=== PATIENT | male | born 1945 | race Two or more races ===

== ENCOUNTER → 2024-04-07 | Outpatient (CLI) | payer MEDICARE, MEDICAID, SELFPAY ==
[2024-04-07 08:27] LABS: Collection Type, Urine Clean Catch; RBC,Urine 0 /hpf (0-3)
[2024-04-07 09:21] LABS: Basophils # (Auto) 0.1 Thou/mm3 (0.0-0.2); Basophils % (Auto) 1 % (0-2.5); Eosinophils % (Auto) 0 % (0-10); Hematocrit 30.8 % (41.0-53.0); Hemoglobin 10.6 g/dL (13.5-16.0); Immature Granulocytes % (Auto) 3 % (0-0); Immature Granulocytes Auto 0.22 Thou/mm3 (0.00-0.00); Lymphocytes # (Auto) 2.3 Thou/mm3 (1.0-4.8); Lymphocytes % (Auto) 27 % (10-50); Mean Corpuscular HGB Conc 34.4 g/dl (31.0-37.0); Mean Corpuscular Hemoglobin 33.3 pg (25.0-35.0); Mean Corpuscular Volume 97 fL (80-100); Monocytes # (Auto) 0.7 Thou/mm3 (0.0-0.8); Monocytes % (Auto) 8 % (0-12); Neutrophils % (Auto) 61 % (37-80); Nucleated Red Blood Cell % 0 /100 WBC (0); Platelet Count 181 Thou/mm3 (140-440); RDW Standard Deviation 45.3 fL (35.1-43.9); Red Blood Count 3.18 Miln/mm3 (4.50-5.90); White Blood Count 8.2 Thou/mm3 (3.8-10.6)
[2024-04-07 09:29] LABS: Prostate Specific Antigen 24.73 ng/mL (0-4.00)
[2024-04-07 09:32] LABS: Alanine Aminotransferase 15 U/L (10-49); Albumin, Serum 3.8 gm/dL (3.4-4.8); Albumin/Globulin Ratio 1.6 (1.2-2.2); Alkaline Phosphatase 134 U/L (46-116); Anion Gap 8 (7-16); Aspartate Amino Transferase 16 U/L (0-34); BUN/Creatinine Ratio 7 Ratio (12-20); Bilirubin,Total 0.3 mg/dL (0.3-1.2); Blood Urea Nitrogen < 5 mg/dL (9-23); Calcium 9.2 mg/dL (8.3-10.6); Calcium (Corrected) 9.4 mg/dL (8.5-10.1); Carbon Dioxide 25.6 mMol/L (20.0-31.0); Cardiac Risk Estimate 3.1 RATIO (4.0-6.7); Chloride 108 mMol/L (98-107); Cholesterol 104 mg/dL (132-200); Creatinine (Component) 0.7 mg/dL (0.6-1.3); Globulin 2.4 gm/dL (2.3-3.5); Glucose 94 mg/dL (74-106); HDL Cholesterol 34 mg/dL (40-60); LDL Cholesterol,Calculated 50 mg/dL (0-130); Osmolality,Calculated 280 (275-295); Potassium 3.9 mMol/L (3.4-5.1); Sodium 142 mMol/L (136-145); Thyroid Stimulating Hormone 0.74 uIU/mL (0.55-4.78); Total Protein 6.2 gm/dL (5.7-8.2); Triglycerides 102 mg/dL (30-150); eGFR > 60 See Note
[2024-04-07 09:53] LABS: Creatinine MALB Rnd Ur 220 mg/dL (30-125); Microalbumin Creat Ratio 9 mg/gCrea (<30); Microalbumin, Random Urine 19 mg/L (0-300)
[2024-04-07 10:09] LABS: Bilirubin,Urine Negative (Negative); Blood,Urine Negative (Negative); Clarity,Urine Clear (Clear/Hazy); Color,Urine Yellow (Lt Yel-Yel); Culture Indicated,Urine Not Indicated; Glucose, Urine Negative (Negative); Ketones,Urine Negative (Negative); Leukocyte Esterase,Urine Negative (Negative); Nitrite,Urine Negative (Negative); Protein,Urine Trace (Neg - Trace); Specific Gravity,Urine 1.016 (1.001-1.035); Squamous Epithelial Cell,Urine 3 /hpf (0-5); Urobilinogen,Urine Negative mg/dL (0.0-1.0); WBC,Urine 2 /hpf (0-5)
== END | disposition home or self-care (01) ==
PROVIDERS: PCP Family Medicine; Referring Provider Family Medicine; Visit Provider Family Medicine
DX: Z00.00 Encounter for general adult medical examination without abnormal findings (principal); I10 Essential (primary) hypertension; C61 Malignant neoplasm of prostate; Z13.0 Encounter for screening for diseases of the blood and blood-forming organs and certain disorders involving the immune mechanism; Z13.29 Encounter for screening for other suspected endocrine disorder; Z13.21 Encounter for screening for nutritional disorder; Z13.220 Encounter for screening for lipoid disorders; Z13.1 Encounter for screening for diabetes mellitus
CPT/HCPCS: 36415; 80053; 80061; 81001; 82043; 82306; 82570; 84153; 84443; 85025

== ENCOUNTER → 2024-04-09 | Outpatient (CLI) | payer MEDICARE, MEDICAID, SELFPAY ==
[2024-04-14 06:50] LABS: Fecal Globin Result NOT DETECTED (NOT DETECTED)
== END | disposition home or self-care (01) ==
LOC: SLDO 15:50
PROVIDERS: PCP Family Medicine; Referring Provider Family Medicine; Visit Provider Family Medicine
DX: Z12.11 Encounter for screening for malignant neoplasm of colon (principal)
CPT/HCPCS: 82274; G0328

== ENCOUNTER 2024-06-06 19:36 | Inpatient (IN) | payer MEDICARE, MEDICAID, SELFPAY ==
[2024-06-06] VITALS (7 sets, daily range): BP systolic 82–108; BP diastolic 52–55; PULSE 99–124; RESP 19–22; TEMP 37.1–39.4; O2SAT 95–100; BMI 28.7
--- NOTE | 2024-06-06 19:41 | EKG_ITS ---
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
--- NOTE | 2024-06-06 20:47 | XR_ITS ---
Examination: AP chest single view TECHNIQUE: AP portable upright chest single view Exam date and time: June 06, 2024 1958 hours INDICATIONS: Weakness today. FINDINGS: Normal heart size. Mild vascular congestion. Right internal jugular Port-A-Cath tip satisfactorily positioned No pneumonia IMPRESSION: Mild vascular congestion
--- NOTE | 2024-06-06 20:48 | XR_ITS ---
Examination: Hand, left 3 views Technique: Hand AP, oblique, lateral 3 views Date and time of exam: June 06, 2024 1957 hours INDICATIONS: Injury with pain today, hand pain FINDINGS: Old fracture distal radial metaphysis Prominent osteopenia Minute opaque foreign body in the soft tissue adjacent to the proximal interphalangeal joint third digit Small radiolucency on the lateral view overlying the proximal phalanx third digit No dislocation IMPRESSION: Suspicious for nondisplaced fracture proximal phalanx third digit
--- NOTE | 2024-06-06 20:49 | PD.EDRME ---
Rapid Medical Screening Exam [facility] Arrival date/time: 06/06/24 19:36 78M with history of prostate cancer presents to ED with several days of worsening weakness, non-bloody diarrhea, and jaundice after patient had his L hand injured while taking care of his goats. He scratched himself on the fence. Patient had chemo last and this is not his normal response. Patient has not had a tetanus shot in the past 5 years. Chief Complaint: Weakness Vital signs: Vital Signs Temperature 98.8 F 06/06/24 20:34 Pulse Rate 124 H 06/06/24 20:34 Respiratory Rate 20 06/06/24 20:34 Blood Pressure 108/55 L 06/06/24 20:34 Pulse Oximetry (%) 95 06/06/24 20:34 Oxygen Delivery Method Room Air 06/06/24 20:34
[2024-06-06] MEDS: ACETAMINOPHEN 500 MG TABLET 1000 MG PO (21:05)
[2024-06-06] MEDS: DIPHTH,PERTUSS(ACELL),TET VAC 0.5 ML SYR- ADULT IMi (21:07)
[2024-06-06] MEDS: VANCOMYCIN/NS 1 GM IVPB 200 ML IV (21:16)
[2024-06-06] MEDS: SODIUM CHLORIDE 0.9% 1000 ML 1,000 ML 999 ML IV ×2 (21:16→22:49)
--- NOTE | 2024-06-06 21:28 | PD.EDUPEX ---
Upper Extremity Injury RME/HPI General Chief Complaint: Weakness Stated Complaint: CONFUSED, WEAKNESS, LEFT HAND INJURY Time Seen by Provider: 06/06/24 21:20 Arrival date/time: 06/06/24 19:36 RME / HPI RME / HPI narrative: 78-year-old male patient with significant history of stage IV prostate cancer, currently on chemotherapy, last chemotherapy 8 days ago, was brought in by family for evaluation regarding worsening generalized body weakness, nonbloody diarrhea, fever, and redness to the left hand dorsal aspect. Patient sustained punctured wound with a shala wire 3 days ago to the dorsal aspect of the left hand, since then the hand is getting red and swollen. Patient is denying any pain. Able to bend and extend the fingers without any limitation. Patient was noted to be febrile and tachycardic, sepsis alert was initiated right away. Related Data Previous Rx's ?Medication ?Instructions ?Recorded acetaminophen 650 mg 650 mg PO Q8H PRN fever or pain 01/09/23 tablet,extended release (Tylenol 8 #30 tabs Hour) ibuprofen 600 mg tablet 600 mg PO Q8H PRN fever or pain 01/09/23 #30 tabs Allergies Allergy/AdvReac Type Severity Reaction Status Date / Time No Known Allergies Allergy Verified 06/06/24 19:39 Review of Systems Review of Systems Narrative Review of Systems: Review of system reviewed and within normal limits except mentioned in HPI ED Exam Narrative Physical exam: VITAL SIGNS: Reviewed. GENERAL APPEARANCE: Alert and interactive, follows commands, no acute distress, HEAD AND FACE: Non-traumatic. ENT: PERRL, pink conjunctivitis, eyelid no trauma, Mucous membrane moist. NECK: Supple, nontender, no nuchal rigidity. CHEST: No tenderness, no crepitus, no paradoxical movement, no retractions. LUNGS: Clear, well ventilated, symmetric, no rales, no wheezing, no ronchi, no stridor, good breath sounds bilaterally. HEART: Regular rate, regular rhythm, no murmur, no gallops. ABDOMEN: Soft, positive bowel sounds, nondistended, no guarding, nontender, no rebound, no masses, RECTAL: Deferred. GENITAL: Deferred. NEUROLOGICAL: Gross motor function intact sensory function intact, Appropriate for age. MUSCULOSKELETAL: low back nontender, full range of motion. EXTREMITIES: Redness swelling dorsal aspect of the hand, with punctate wound, nontender, full range of motion of the fingers SKIN: Color pink, dry, no rash, no lacerations, no abrasions, no contusions. LYMPHATICS: Deferred. Course Quality Measures none Orders Category Date Time Status Blood glucose [Bedside Blood Glucose] NOW Care 06/06/24 19:41 Active COVID-19 Screening Questionnaire NOW Care 06/06/24 23:02 Active Decision to Admit X1 Care 06/06/24 23:02 Active EKG (ED ONLY) *Do not use* NOW Care 06/06/24 19:41 Completed Insert IV NOW Care 06/06/24 20:51 Active EKG (ED Only) Stat Exams 06/06/24 19:41 Ordered XR chest 1V portable Stat Exams 06/06/24 20:47 Completed XR hand comp LT min 3V Stat Exams 06/06/24 20:48 Completed B-Type Natriuretic Peptide Stat Lab 06/06/24 21:14 Completed Blood Culture (Lab) Stat Lab 06/06/24 21:14 Received CBC Stat Lab 06/06/24 21:14 Completed Comprehensive Metabolic Panel Stat Lab 06/06/24 21:14 Completed Lactate (Lactic Acid) Stat Lab 06/06/24 21:14 Results Magnesium Stat Lab 06/06/24 21:14 Completed Partial Thromboplastin Time Stat Lab 06/06/24 21:14 Completed Path Review Blood Smear Stat Lab 06/06/24 21:14 Completed Procalcitonin Stat Lab 06/06/24 21:14 Completed Prothrombin Time with INR Stat Lab 06/06/24 21:14 Completed Troponin I Stat Lab 06/06/24 21:14 Completed Urinalysis Stat Lab 06/06/24 20:47 Ordered Acetaminophen Tab [Tylenol ES Tab] Med 06/06/24 20:56 Discontinued 1,000 mg PO X1 ONE Magnesium Sulfate 2 GM Ivpb [Magnesium Sulfate Ivpb] Med 06/06/24 22:16 Active 2 gm in 50 ml IV X1 Piper/Tazo 3.375 gm Premix [Zosyn] Med 06/06/24 21:27 Discontinued 3.375 gm in 50 ml IV X1 Sodium Chloride 0.9% 1000 ml [Ns] 1,000 ml Med 06/06/24 20:47 Discontinued IV 999 mls/hr Sodium Chloride 0.9% 1000 ml [Ns] 1,000 ml Med 06/06/24 22:37 Active IV 999 mls/hr TET,DIP/PERT AC (Adult)-Tdap [Boostrix Adult (Tdap) Med 06/06/24 20:49 Discontinued Vacc] 0.5 ml IMI .ONCE ONE Vancomycin/Ns 1 gm Ivpb 200 ml Med 06/06/24 21:00 Discontinued IV X1 Vital Signs Vital signs: Vital Signs Temperature 98.8 F 06/06/24 20:34 Pulse Rate 124 H 06/06/24 20:34 Respiratory Rate 20 06/06/24 20:34 Blood Pressure 108/55 L 06/06/24 20:34 Pulse Oximetry (%) 95 06/06/24 20:34 Oxygen Delivery Method Room Air 06/06/24 20:34 Extremity Injury [facility] Narrative [facility] Narrative:: 74-year-old female patient with significant history of diabetes mellitus patient came in for evaluation regarding low hemoglobin. Patient had blood drawn done today and was noted to have a hemoglobin of 6.7. CT scan also was done outpatient by his PCP, and according to them there is a concerning finding. Currently patient is denying any abdominal pain denies any blood in the stool or vomiting blood. No other complaints noted. EKG showed sinus tachycardia, ventricular rate of 1 1 5 bpm, MI interval 172 MS, no ST segment elevation depression noted. Laboratory workup significant for leukopenia of 0.5 reverse isolation was initiated right away urinalysis no UTI creatinine 1.4 lactic acid 2.9 Pro-Lito 18.2 x-ray of the hand showed possible/suspected for proximal phalanx fracture third digit chest x-ray came back unremarkable. Patient received IV fluids, IV Zosyn and IV ceftriaxone, patient's blood pressure was noted to be on the low 90s. Patient data External records reviewed:: None Clinical information provided by:: patient Social determinants that could affect healthcare access:: none Patient has the following chronic illnesses:: Hypertension, prostate cancer, stage IV How is presenting disease/condition affected by chronic disease/condition?: exacerbated by Evaluation data The following diagnostics were reviewed and interpreted by me:: lab results, radiology exam(s) and EKG tracing(s) Lab and/or radiology exams considered but not ordered:: None Interpretation Summary: See results in MDM Medications / Prescriptions Medications or Prescriptions considered but not ordered:: None Medication administrations:: Medication Administration History Magnesium Sulfate (Magnesium Sulfate Ivpb) 2 gm in 50 mls @ 25 mls/hr IV X1 ONE Stop: 06/07/24 00:15 Last Admin: 06/06/24 22:33 Dose: 25 mls/hr Documented By: EE Sodium Chloride (Ns) 1,000 mls @ 999 mls/hr IV .Q1H1M ONE Stop: 06/06/24 23:37 Last Admin: 06/06/24 22:49 Dose: 999 mls/hr Documented By: CB Discontinued Medications Acetaminophen (Acetaminophen 500 Mg Tablet) 1,000 mg PO X1 ONE Stop: 06/06/24 20:57 Last Admin: 06/06/24 21:05 Dose: 1,000 mg Documented By: CVL Diphtheria/Tetanus/Acell Pertussis (Diphth,Pertuss(Acell),Tet Vac 0.5 Ml Syr- Adult) 0.5 ml IMi .ONCE ONE Stop: 06/06/24 20:50 Last Admin: 06/06/24 21:07 Dose: 0.5 ml Documented By: CVL Sodium Chloride (Ns) 1,000 mls @ 999 mls/hr IV .Q1H1M ONE Stop: 06/06/24 21:47 Last Infusion: 06/06/24 22:50 Dose: Infused Documented By: Admin: 06/06/24 21:16 Dose: 999 mls/hr Documented By: CVL Vancomycin/Sodium Chloride (Vancomycin/Ns 1 Gm Ivpb) 200 mls @ 120 mls/hr IV X1 ONE Stop: 06/06/24 22:39 Last Infusion: 06/06/24 23:10 Dose: Infused Documented By: Admin: 06/06/24 21:16 Dose: 120 mls/hr Documented By: CVL Piperacillin/Tazobactam/Dextrose (Zosyn) 3.375 gm in 50 mls @ 100 mls/hr IV X1 ONE Stop: 06/06/24 21:56 Last Infusion: 06/06/24 22:49 Dose: Infused Documented By: Admin: 06/06/24 21:55 Dose: 100 mls/hr Documented By: CB IV Zosyn IV vancomycin IV fluids for hydration, Boostrix and Tylenol Consultations Consultation(s) initiated? (list below): No Diagnosis Upper Extremity Injury Differential Diagnosis: other (Neutropenic fever, hand cellulitis, pneumonia, history of prostate cancer stage IV) Most likely diagnosis given after review of the tests above:: Neutropenic fever, hand cellulitis, prostate cancer stage IV Admission Indicated Admission indicated?: indicated Admission Request Was there a request for admission?: Yes Admission Attestation Admission request attestation: Discussed case with [Dr. Taylor] from Hospitalist service regarding admission. Discussed patients ED course, exam findings, labs, and radiology results. The Hospitalist [agrees] to accept the patient for admission. Disposition Plan Disposition Plan: Admit Discharge Plan Plan Patient Disposition: Admit Acute Care w/in Hospital Prescriptions/Referrals Prescriptions/Med Rec: No Action acetaminophen [Tylenol 8 Hour] 650 mg tablet extended release 650 mg PO Q8H PRN (Reason: fever or pain) Qty: 30 0RF ibuprofen 600 mg tablet 600 mg PO Q8H PRN (Reason: fever or pain) Qty: 30 0RF Problem List Clinical Impression: Neutropenic fever, Cellulitis of hand, Prostate cancer Patient/Caregiver Discharge Instructions Print Language: Dominican Stand Alone Forms: [facility] Award Info., Patient Portal Info Letter
[2024-06-06 21:38] LABS: Lactate (Lactic Acid) 2.9 mMol/L (0.4-2.0)
[2024-06-06 21:53] LABS: Basophils % (Auto) 2 % (0-2.5); Eosinophils % (Auto) 0 % (0-10); Hematocrit 28.8 % (41.0-53.0); Hemoglobin 10.2 g/dL (13.5-16.0); Immature Granulocytes % (Auto) 0 % (0-0); Lymphocytes # (Auto) 0.4 Thou/mm3 (1.0-4.8); Lymphocytes % (Auto) 83 % (10-50); Mean Corpuscular HGB Conc 35.4 g/dl (31.0-37.0); Mean Corpuscular Hemoglobin 34.2 pg (25.0-35.0); Mean Corpuscular Volume 97 fL (80-100); Monocytes % (Auto) 7 % (0-12); Neutrophils % (Auto) 9 % (37-80); Nucleated Red Blood Cell % 0 /100 WBC (0); Red Blood Count 2.98 Miln/mm3 (4.50-5.90)
[2024-06-06] MEDS: PIPER/TAZO 3.375 GM PREMIX 3.375 GM/50 ML BAG IV (21:55)
[2024-06-06 22:00] LABS: INR 1.3 (0.9-1.3); Partial Thromboplastin Time 35.2 Seconds (22.0-36.0); Prothrombin Time 13.7 Seconds (9.0-12.2)
[2024-06-06 22:11] LABS: Alanine Aminotransferase 44 U/L (10-49); Albumin/Globulin Ratio 1.6 (1.2-2.2); Alkaline Phosphatase 83 U/L (46-116); Anion Gap 12 (7-16); Aspartate Amino Transferase 28 U/L (0-34); BUN/Creatinine Ratio 13 Ratio (12-20); Bilirubin,Total 0.8 mg/dL (0.3-1.2); Blood Urea Nitrogen 18 mg/dL (9-23); Carbon Dioxide 19.1 mMol/L (20.0-31.0); Chloride 99 mMol/L (98-107); Creatinine (Component) 1.4 mg/dL (0.6-1.3); Estimated Creatinine Clearance 47.8 mL/min (>60); Globulin 2.5 gm/dL (2.3-3.5); Glucose 92 mg/dL (74-106); Magnesium 1.4 mg/dL (1.6-2.6); Osmolality,Calculated 262 (275-295); Potassium 3.7 mMol/L (3.4-5.1); Procalcitonin 18.24 ng/ml (0.0-0.49); Sodium 130 mMol/L (136-145); Total Protein 6.5 gm/dL (5.7-8.2); eGFR 52 See Note
[2024-06-06 22:27] LABS: Platelet Count 43 Thou/mm3 (140-440)
[2024-06-06 22:29] LABS: B-Type Natriuretic Peptide 190 pg/mL (0-100)
[2024-06-06 22:30] LABS: White Blood Count 0.5 Thou/mm3 (3.8-10.6)
[2024-06-06 22:31] LABS: Slide Review Platelets confirmed
[2024-06-06] MEDS: Magnesium Sulfate 2 GM Ivpb 2 GM/50 ML BAG IV (22:33)
--- NOTE | 2024-06-06 22:35 | PC.NURSE ---
Notified Rea LARSON that patients blood pressure is 82/53. Provider ordered another liter of normal saline bolus.
[2024-06-06 22:45] LABS: Path Review Blood Smear Sent to Pathologist
[2024-06-07] VITALS (30 sets, daily range): BP systolic 96–139; BP diastolic 57–101; PULSE 88–114; RESP 10–28; TEMP 36.8–39.2; O2SAT 93–99; BMI 32.3
--- NOTE | 2024-06-07 | XR_ITS ---
Examination: MRI left hand, without contrast Date and time of exam: Ruba Pickard, [address] 100 hours INDICATIONS: Diagnosis malignant neoplasm prostate stage IV, chemotherapy finished a days ago with redness swelling and pain involving the left hand Technique: Multiple axial sagittal and coronal images of the left hand have been obtained with the Siemens high-resolution 1.5 Kaylee MRI scanner. Images obtained include T2-weighted fat-suppressed sagittal sections, TR 3500, TE 46, T2 weighted coronal fat suppressed images, TR 3050, TE 84, T2-weighted transverse fat suppressed images, TR 3260, TE 63, proton density transverse images, TR 4720 TE 46, and T1 weighted coronal images, TR 560, TE 13. Findings: Diffuse cellulitis both dorsal and palmar to the hand more severe dorsum of the hand at the level of the metacarpophalangeal joints No soft tissue abscess No cortical bone destruction No occult fracture No annular nadia tears Please see the wrist report IMPRESSION: Diffuse cellulitis, with severe edema dorsum and palmar aspect of the hand and wrist, most severe dorsum of the hand at the level of the metacarpophalangeal joints Negative for osteomyelitis Negative for soft tissue abscess
--- NOTE | 2024-06-07 | XR_ITS ---
Examination: MRI wrist without contrast TECHNIQUE: Multiple MR axial images of the wrist including T2-weighted T1-weighted axial images coronal T2-weighted images Exam date and time: June 07 2024 at 1600 hours INDICATIONS: Diagnosis stage IV malignant neoplasm of the prostate, undergoing chemotherapy, fever redness to the hand this week FINDINGS: Adequate marrow signal distal radius distal ulna and carpal bones Triangular fibrocartilage appears intact There is moderate narrowing of the radiocarpal intercarpal and carpometacarpal joints Small effusion at the first carpometacarpal joint Extensive edema in the soft tissues surrounding the wrist but no soft tissue abscess No cortical bone destruction or findings of osteomyelitis Flexor tendons intact with normal-appearing median nerve Diffuse tendinitis of the extensor tendons IMPRESSION: Diffuse wrist cellulitis No soft tissue abscess Negative for osteomyelitis
[2024-06-07 00:35] LABS: Reflex Lactate? Y
[2024-06-07 01:06] LABS: Lactic Acid, 3 HR 1.4 mMol/L (0.4-2.0)
[2024-06-07] MEDS: ACETAMINOPHEN 325 MG TABLET 650 MG PO ×2 (01:20→10:19)
[2024-06-07] MEDS: SODIUM CHLORIDE 0.9% 1000 ML 1,000 ML 999 ML IV ×2 (01:20→03:44)
[2024-06-07] MEDS: Magnesium Sulfate 2 GM Ivpb 2 GM/50 ML BAG IV (01:20)
[2024-06-07 01:39] LABS: Collection Type, Urine Clean Catch
[2024-06-07] MEDS: HYDROcodone/APAP 5/325 TABLET 1 TAB PO ×2 (01:47→09:57)
[2024-06-07] MEDS: CALCIUM CARBONATE 600 MG TABLET PO ×2 (01:48→11:03)
[2024-06-07 01:50] LABS: Bilirubin,Urine Negative (Negative); Blood,Urine 1+ (Negative); Clarity,Urine Turbid (Clear/Hazy); Color,Urine Yellow (Lt Yel-Yel); Glucose, Urine Negative (Negative); Ketones,Urine Negative (Negative); Leukocyte Esterase,Urine Negative (Negative); Nitrite,Urine Negative (Negative); PH,Urine 5.5 (5.0-7.0); Protein,Urine 1+ (Neg - Trace); RBC,Urine 5 /hpf (0-3); Squamous Epithelial Cell,Urine 1 /hpf (0-5); Urobilinogen,Urine Negative mg/dL (0.0-1.0); WBC,Urine 7 /hpf (0-5)
--- NOTE | 2024-06-07 02:38 | PD.RESHP ---
Documentation for date of: 06/07/24 [facility] History of Present Illness History of present illness: The Patient is a 78-year-old male with significant past medical history of hypertension, stage IV prostate cancer, currently on chemotherapy with last chemotherapy 8 days ago was brought in by family for fever, redness to the left hand and generalized body weakness. The patient's daughter at bedside. Patient was apparently doing well, but 3 days back when he was on his backyard, punctured his left hand with shala wire at the junction of dorsal and palmar aspect over medial side. The patient also developed fever. He denied any lightheadedness, chest pain or SOB, nausea or vomiting, any changes in bowel or bladder habit, or any leg swelling. In the ED, his vitals were significant for blood pressure 108/55, pulse 124, and temperature 98.8. Labs were significant for white count 0.5, hemoglobin 10.2, platelet 43, PT 13.7, sodium 130, bicarb 19.1, creatinine 1.4, EGFR 52, osmolality 262, lactic acid 2.9 that trended down to 1.4, calcium 8.0, magnesium 1.4, Pro-Lito 18.24. UA revealed turbid urine, protein 1+, blood 1+, RBC 5, WBC 7. CXR revealed mild vascular congestions, Left hand x-ray revealed suspicion for nondisplaced fracture proximal phalanx third digit. PMH: As mentioned above Surgical history: Unremarkable Social history: Denies smoking, occasional alcohol use, denies drug abuse Allergies: No known allergies Medications: To be reconciled The patient received DPT 0.5 mL IM x 1, received Zosyn 3.375 g x 1, total 4 L of IV NS bolus, vancomycin, and later started on cefepime and Flagyl. The patient was admitted to telemetry unit for further management of neutropenic fever. Review of Systems Review of Systems Systems Reviewed: All systems reviewed, normal except as documented Exam Vital Signs Temp Pulse Resp BP Pulse Ox O2 Del Method 101.9 F H 113 H 22 H 124/66 95 Room Air 06/07/24 01:20 06/07/24 01:25 06/07/24 01:25 06/07/24 01:25 06/07/24 01:25 06/07/24 01:25 Narrative Exam General: No acute distress, Alert and Oriented x 3 HEENT: Moist mucous membranes, oropharynx clear Neck: Supple, No masses, No JVD CVS: S1S2 Regular rate and rhythm, No murmurs, rubs or gallops Lungs: Clear to auscultation with no accessory use, no wheeze no rhonchi Abd: Soft, NT/ND, +BS, no organomegaly Ext: Left hand with puncture wound over medial aspect in the junction of palmar and dorsal aspect Psych: Appropriate mood and affect Results: Labs 06/06/24 21:14 06/06/24 21:14 Labs: Short CBC 06/06/24 Range/Units 21:14 WBC 0.5 L* (3.8-10.6) Thou/mm3 Hgb 10.2 L (13.5-16.0) g/dL Hct 28.8 L (41.0-53.0) % Plt Count 43 L (140-440) Thou/mm3 BMP 06/06/24 21:14 Sodium 130 L Potassium 3.7 Chloride 99 Carbon Dioxide 19.1 L BUN 18 Creatinine 1.4 H Glucose 92 Calcium 8.0 L Cardiac Enzymes 06/06/24 Range/Units 21:14 Troponin I 0.020 (0.0-0.045) ng/mL Liver Function 06/06/24 Range/Units 21:14 Total Bilirubin 0.8 (0.3-1.2) mg/dL AST 28 (0-34) U/L ALT 44 (10-49) U/L Alkaline Phosphatase 83 (46-116) U/L Albumin 4.0 (3.4-4.8) gm/dL Urine 06/07/24 Range/Units 01:33 Urine Color Yellow (Lt Yel-Yel) Urine Clarity Turbid A (Clear/Hazy) Urine pH 5.5 (5.0-7.0) Ur Specific [place] 1.020 (1.001-1.035) Urine Protein 1+ A (Neg - Trace) Urine Glucose (UA) Negative (Negative) Quality Measures Quality Measures none Advance care planning discussed with:: patient and child Medications Home Medications and Allergies Allergies Allergy/AdvReac Type Severity Reaction Status Date / Time No Known Allergies Allergy Verified 06/06/24 19:39 Visit Medications Acetaminophen (Acetaminophen 325 Mg Tablet) 650 mg PO Q6H PRN PRN Reason: Fever >101.5 Stop: 07/07/24 00:30 Last Admin: 06/07/24 01:20 Dose: 650 mg Acetaminophen (Acetaminophen 325 Mg Tablet) 650 mg PO Q6H PRN PRN Reason: PAIN SCALE 1-3 (mild Stop: 07/07/24 00:30 Hydrocodone Bitart/Acetaminophen (Hydrocodone/Apap 5/325 Tablet) 1 tab PO Q4HR PRN PRN Reason: PAIN SCALE 4-6 (Moderate Stop: 06/12/24 00:30 Last Admin: 06/07/24 01:47 Dose: 1 tab Calcium Carbonate (Calcium Carbonate 600 Mg Tablet) 600 mg PO QDAY JORDYN Stop: 07/07/24 00:29 Last Admin: 06/07/24 01:48 Dose: 600 mg Heparin Sodium (Porcine) (Heparin Sod Inj 5000 Unit/Ml Vial) 5,000 unit SC Q8HR [facility] Stop: 06/21/24 05:59 Cefepime HCl 2 gm/ Sodium (Chloride) 50 mls @ 100 mls/hr IV Q8H [facility] Stop: 06/14/24 03:59 Cefepime HCl 2 gm/ Sodium (Chloride) 50 mls @ 100 mls/hr IV X1 ONE Stop: 06/07/24 04:29 Pharmacy Consult (Vancomycin Pharmacy To Dose 1 Each Each) 1 each IV QDAY [facility] Stop: 07/07/24 08:59 Discontinued Medications Acetaminophen (Acetaminophen 500 Mg Tablet) 1,000 mg PO X1 ONE Stop: 06/06/24 20:57 Last Admin: 06/06/24 21:05 Dose: 1,000 mg Diphtheria/Tetanus/Acell Pertussis (Diphth,Pertuss(Acell),Tet Vac 0.5 Ml Syr- Adult) 0.5 ml IMi .ONCE ONE Stop: 06/06/24 20:50 Last Admin: 06/06/24 21:07 Dose: 0.5 ml Sodium Chloride (Ns) 1,000 mls @ 999 mls/hr IV .Q1H1M ONE Stop: 06/06/24 21:47 Last Infusion: 06/06/24 22:50 Dose: Infused Vancomycin/Sodium Chloride (Vancomycin/Ns 1 Gm Ivpb) 200 mls @ 120 mls/hr IV X1 ONE Stop: 06/06/24 22:39 Last Infusion: 06/06/24 23:10 Dose: Infused Piperacillin/Tazobactam/Dextrose (Zosyn) 3.375 gm in 50 mls @ 100 mls/hr IV X1 ONE Stop: 06/06/24 21:56 Last Infusion: 06/06/24 22:49 Dose: Infused Magnesium Sulfate (Magnesium Sulfate Ivpb) 2 gm in 50 mls @ 25 mls/hr IV X1 ONE Stop: 06/07/24 00:15 Last Infusion: 06/07/24 00:37 Dose: Infused Sodium Chloride (Ns) 1,000 mls @ 999 mls/hr IV .Q1H1M ONE Stop: 06/06/24 23:37 Last Infusion: 06/06/24 23:55 Dose: Infused Magnesium Sulfate (Magnesium Sulfate Ivpb) 2 gm in 50 mls @ 25 mls/hr IV X1 ONE Stop: 06/07/24 02:29 Last Admin: 06/07/24 01:20 Dose: 25 mls/hr Sodium Chloride (Ns) 1,000 mls @ 999 mls/hr IV .Q1H1M ONE Stop: 06/07/24 01:29 Last Admin: 06/07/24 01:20 Dose: 999 mls/hr Assessment & Plan Plan The Patient is a 78-year-old male with significant past medical history of hypertension, stage IV prostate cancer, currently on chemotherapy with last chemotherapy 8 days ago was brought in by family for fever, redness to the left hand and generalized body weakness. The patient was admitted to telemetry unit for further management of neutropenic fever. #Neutropenic fever #Sepsis 2/2 #Left hand cellulitis Secondary to chemotherapy that was done 8 days ago for stage IV prostate cancer Meet SIRS criteria 2/4 with pulse rate 124 and white count 0.5 with left hand cellulitis, and hematopoietic failure were with neutropenia Pro-Lito 18.24 Received 4 L of IV NS bolus Received IV vancomycin and Zosyn in the ED -Switched Zosyn to cefepime and Flagyl -Tylenol 650 Mg every 6 hourly as needed for fever, along with cooling measures -Continue on IV vancomycin daily -Ordered blood and urine culture -Ordered neutropenic isolation -Ordered left hand CT without contrast -May consider surgical consultation for left hand cellulitis -Daily a.m. labs for CBC, CMP and electrolytes #Thrombocytopenia Secondary to chemotherapy 8 days ago Platelet count of 43 -Hold off on heparin until platelet count close greater than 50 -Continue to monitor daily a.m. labs for platelets #Mild hypoosmolar hypovolemic hyponatremia Likely secondary to poor oral intake -Received 4 L IV normal saline bolus -Daily a.m. labs for sodium level #Hypocalcemia #Hypomagnesemia Presented with calcium 8.0 and magnesium 1.4 -Started on calcium carbonate 600 Mg daily -Repleted magnesium with 4 g IV magnesium sulfate -Monitor daily a.m. labs for calcium and magnesium #Proteinuria #Microscopic hematuria -Likely secondary to sepsis #Primary hypertension Currently blood pressure soft -Monitor blood pressure closely #Stage IV prostate cancer Patient is on chemotherapy, last administered 8 days ago -Outpatient follow-up with oncologist Health maintenance: Dispo: Patient admitted to telemetry unit for further management of neutropenic fever and sepsis secondary to cellulitis of left hand Diet: Regular diet DVT prophylaxis: SCDs CODE STATUS: Full code The patient's management plan was discussed with my attending physician MD Rivera Lpoes MD, PGY2 Attending Provider Attestation/Addendum 78-year-old male with hypertension and stage IV prostate cancer currently undergoing chemotherapy (last chemotherapy 8 days ago) who presented to the ER with complaints of left hand pain. Patient was in his normal state of health however about 3 days ago patient was in his backyard and punctured the left hand with shala wire and subsequently started developing fevers which prompted an ER visit. In the ER, patient was noted to be in septic with neutropenic fever with source likely being left hand cellulitis. On exam, patient does have significant erythema however no fluctuance to suggest abscesses. As of now, plan to start patient on vancomycin, cefepime and Flagyl. Will also obtain CT of the left hand and admit patient to telemetry. As for neutropenia, likely related to chemotherapy and will monitor closely and repeat a.m. labs and if no improvement at that point we will reach out to patient's oncologist.I reviewed above note and agree with findings and plans. I have also personally examined the patient with medicine team and went over assessment and plan with medical team including manager intern and resident physician.
[2024-06-07] MEDS: CEFEPIME INJ 2 GM in SODIUM CHLORIDE 0.9% (Popper) 50 ML IV ×3 (03:44→23:40)
--- NOTE | 2024-06-07 04:14 | XR_ITS ---
Examination: CT left hand, without contrast. 2-D sagittal reconstructions. 2-D coronal reconstructions. 3-D reconstructions. Date and time of exam:June 07, 2024 at 0443 hours INDICATIONS: Left hand pain beginning one month ago CTDI: vol (mGy):4.25 DLP: (mGycm):102 Technique: Multiple 1.25 mm axial sections of the left hand have been obtained. 2-D sagittal and coronal reconstructions have been obtained. 3-D reconstructions have been obtained. Low dose protocols were performed. One or more of the following dose reduction techniques were used; automated exposure control, adjustment of the mA and/or KV according to patient size, use of iterative reconstruction technique. Findings: Old healed fracture distal radial metaphysis Ununited fracture ulnar styloid tip Carpal bones, metacarpals digits intact. Soft tissue swelling with air densities between the first and second metacarpals Negative for osteomyelitis IMPRESSION: Soft tissue defect, soft tissue swelling and air densities between the first and second metacarpals No opaque foreign bodies No soft tissue abscess Negative for osteomyelitis If symptoms persist, consider MRI hand without contrast follow-up
[2024-06-07 04:57] LABS: Basophils % (Auto) 0 % (0-2.5); Eosinophils % (Auto) 0 % (0-10); Hematocrit 23.1 % (41.0-53.0); Immature Granulocytes % (Auto) 0 % (0-0); Lymphocytes # (Auto) 0.2 Thou/mm3 (1.0-4.8); Lymphocytes % (Auto) 65 % (10-50); Mean Corpuscular HGB Conc 35.1 g/dl (31.0-37.0); Mean Corpuscular Hemoglobin 34.2 pg (25.0-35.0); Mean Corpuscular Volume 98 fL (80-100); Monocytes % (Auto) 9 % (0-12); Neutrophils # (Auto) 0.1 Thou/mm3 (1.8-7.7); Neutrophils % (Auto) 26 % (37-80); Nucleated Red Blood Cell % 0 /100 WBC (0); RDW Standard Deviation 47.6 fL (35.1-43.9); Red Blood Count 2.37 Miln/mm3 (4.50-5.90)
[2024-06-07 05:16] LABS: Glucose Estimated Average 103 mg/dL (80-131); Hemoglobin A1C 5.2 % Hgb (4.8-6.0)
[2024-06-07] MEDS: metroNIDAZOLE/NS 500 MG IVPB 500 MG/100 ML BAG 200 MG IV ×3 (05:22→23:57)
--- NOTE | 2024-06-07 05:28 | PRELIM_ITS ---
CT left hand without intravenous contrast (axial sections with sagittal and coronal reformats) {Scan Date/time} Clinical History: {Clinical History} Findings: The visualized bones and joints are unremarkable. No acute fracture or dislocation is seen. No significant joint effusion is seen. The visualized muscles are unremarkable with maintained intermuscular fat planes. Chronic distal radial and ulnar fractures are seen. There is diffuse subcutaneous soft tissue edema with skin laceration/wound in the medial surface at the level of second metacarpal head. Impression: Diffuse subcutaneous soft tissue edema with skin laceration/wound in the medial surface at the level of second metacarpal head. No CT evidence of osteomyellitis. Report Electronically Signed By: Kadeem Dee 06/07/2024 5:27:34 AM [EST]
[2024-06-07] MEDS: HYDROCORTISONE SOD SUCC INJ 100 MG VIAL IV (05:35)
[2024-06-07 05:57] LABS: Alanine Aminotransferase 30 U/L (10-49); Albumin/Globulin Ratio 1.5 (1.2-2.2); Alkaline Phosphatase 62 U/L (46-116); Anion Gap 11 (7-16); Aspartate Amino Transferase 24 U/L (0-34); BUN/Creatinine Ratio 15 Ratio (12-20); Bilirubin,Total 0.5 mg/dL (0.3-1.2); Blood Urea Nitrogen 16 mg/dL (9-23); Calcium 6.9 mg/dL (8.3-10.6); Calcium (Corrected) 7.7 mg/dL (8.5-10.1); Carbon Dioxide 16.5 mMol/L (20.0-31.0); Cardiac Risk Estimate 2.8 RATIO (4.0-6.7); Chloride 105 mMol/L (98-107); Cholesterol < 50 mg/dL (132-200); Creatinine (Component) 1.1 mg/dL (0.6-1.3); Estimated Creatinine Clearance 60.9 mL/min (>60); Glucose 81 mg/dL (74-106); HDL Cholesterol 18 mg/dL (40-60); LDL Cholesterol,Calculated 23 mg/dL (0-130); Magnesium 2.2 mg/dL (1.6-2.6); Osmolality,Calculated 264 (275-295); Potassium 2.8 mMol/L (3.4-5.1); Sodium 132 mMol/L (136-145); Thyroid Stimulating Hormone 0.51 uIU/mL (0.55-4.78); Triglycerides 47 mg/dL (30-150); eGFR > 60 See Note
[2024-06-07 06:17] LABS: Hemoglobin 8.1 g/dL (13.5-16.0)
[2024-06-07 06:20] LABS: Platelet Count 25 Thou/mm3 (140-440); White Blood Count < 0.4 Thou/mm3 (3.8-10.6)
[2024-06-07 06:22] LABS: Slide Review Platelets confirmed
--- NOTE | 2024-06-07 07:35 | PC.NURSE ---
attempted to call hospitalist no answer will continue to call pt has pos blood culture x2 gram - santos
--- NOTE | 2024-06-07 09:10 | XR_ITS ---
Examination: Duplex scan of the lower extremity, unilateral right complete Date and time of exam: June 07, 2024 0920 hrs. Indications: Bilateral leg pain after chemotherapy intermittent one year Technique: Duplex scan of the extremity veins using B-mode/grayscale imaging and Doppler spectral analysis and color flow Attention is directed to internal echogenicity, compression and augmentation involving these veins, color flow assessment, spectral analysis Findings: Major deep venous structures in the extremity demonstrate normal course and caliber. There is no evidence of deep vein thrombosis. Normal color flow and spectral analysis Impression: Negative for DVT..
--- NOTE | 2024-06-07 09:22 | PC.NURSE ---
called pharm for calcium carbonate
[2024-06-07] MEDS: POTASSIUM CHLORIDE 20 mEq TABCR 40 MEQ PO (09:48)
--- NOTE | 2024-06-07 10:20 | PC.NURSE ---
called pharmacy to follow up calcium carbonate will be bringing
[2024-06-07] MEDS: POTASSIUM CHLORIDE 20 mEq TABCR PO (12:38)
[2024-06-07] MEDS: FILGRASTIM INJ (ZARXIO) 480 MCG/0.8 ML SYRINGE SC (13:11)
--- NOTE | 2024-06-07 14:01 | PC.NURSE ---
only ate few bites of lunch meal
[2024-06-07] MEDS: MORPHINE SULF INJ 10 MG/ML VIAL 4 MG IVP (14:09)
--- NOTE | 2024-06-07 14:17 | PD.RESPRO ---
Documentation for date of: 06/07/24 Subjective Subjective Interval history: No overnight events. Patient seen and examined at bedside, mild distress. Patient [place] fever, chest pain, shortness of breath, nausea, vomiting. Patient endorses continued pain in his left hand, noted to have pain with flexion. Left hand is progressively swollen, tender, erythematous, and warm, black discoloration newly noted. CT imaging is concerning with air densities. MRI left hand/wrist pending. Orthopedics consulted. Neutragin given. Will attempt urgent transfer to facility with hand business services specialist sales. Exam Vital Signs Temp Pulse Resp BP Pulse Ox O2 Del Method 99.9 F 99 22 H 117/73 98 Room Air 06/07/24 12:06/07/24 12:06/07/24 12:06/07/24 12:06/07/24 12:06/07/24 12:29 Narrative Exam PE: Gen: Well-developed and well-nourished. Moderate distress. HEENT: NCAT, PERRLA, EOMI, MMM, anicteric conjunctivae. CVS: normal S1 and S2. RRR. No M/R/G. Resp: CTA B/L. No rhonchi, rales, crackles or wheezing. Abd: soft, non-tender, non-distended. BS+ in all 4 quadrants. MSK: Good ROM in BUE & BLE. Diffuse bruises, various stages of healing. Right lower extremity swollen. Left hand edematous, tender, erythematous, with black discoloration from puncture wound, progressive since admission. Left hand sensation and pulse intact. Neuro: CN II-XII grossly intact. Strength 5/5 in BUE & BLE. Alert and oriented x3. Psych: appropriate mood and affect. Objective Labs 06/08/24 04:45 06/08/24 04:45 Labs: Laboratory Results - last 24 hr 06/06/24 06/07/24 06/07/24 21:14 00:57 01:33 WBC 0.5 L* RBC 2.98 L Hgb 10.2 L Hct 28.8 L MCV 97 MCH 34.2 MCHC 35.4 RDW Std Deviation 47.0 H Plt Count 43 L Neut % (Auto) 9 L Lymph % (Auto) 83 H Mclennan % (Auto) 7 Eos % (Auto) 0 Baso % (Auto) 2 Neut # (Auto) 0.0 L Lymph # (Auto) 0.4 L Mclennan # (Auto) 0.0 Eos # (Auto) 0.0 Baso # (Auto) 0.0 Immature Gran # (Auto) 0.00 Absolute Nucleated RBC 0.00 Immature Gran % 0 Nucleated RBC % 0 Smear Path Review Sent to Pathologist PT 13.7 H INR 1.3 APTT 35.2 Sodium 130 L Potassium 3.7 Chloride 99 Carbon Dioxide 19.1 L Anion Gap 12 BUN 18 Creatinine 1.4 H Estim Creat Clear Calc 47.8 L eGFR 52 L BUN/Creatinine Ratio [address] Glu mg/dL Hemoglobin A1c Calculated Osmolality 262 L Lactic Acid 2.9 H 1.4 Calcium 8.0 L Corrected Calcium 8.0 L Magnesium 1.4 L Total Bilirubin 0.8 AST 28 ALT 44 Alkaline Phosphatase 83 Troponin I 0.020 B-Natriuretic Peptide 190 H Total Protein 6.5 Albumin 4.0 Globulin 2.5 Albumin/Globulin Ratio 1.6 Triglycerides Cholesterol LDL Cholesterol, Calc HDL Cholesterol Cholesterol/HDL Ratio Procalcitonin 18.24 H TSH Ur Collection Type Clean Catch Urine Color Yellow Urine Clarity Turbid A Urine pH 5.5 Ur Specific [place] 1.020 Urine Protein 1+ A Urine Glucose (UA) Negative Urine Ketones Negative Urine Blood 1+ A Urine Nitrite Negative Urine Bilirubin Negative Urine Urobilinogen (Auto) Negative Ur Leukocyte Esterase Negative Urine RBC 5 H Urine WBC 7 H Ur Squamous Epith Cells 1 Urine Bacteria None Misc Test Result Platelets confirmed 06/07/24 04:40 WBC < 0.4 L* RBC 2.37 L Hgb 8.1 L D Hct 23.1 L MCV 98 MCH 34.2 MCHC 35.1 RDW Std Deviation 47.6 H Plt Count 25 L* D Neut % (Auto) 26 L Lymph % (Auto) 65 H Mclennan % (Auto) 9 Eos % (Auto) 0 Baso % (Auto) 0 Neut # (Auto) 0.1 L Lymph # (Auto) 0.2 L Mclennan # (Auto) 0.0 Eos # (Auto) 0.0 Baso # (Auto) 0.0 Immature Gran # (Auto) 0.00 Absolute Nucleated RBC 0.00 Immature Gran % 0 Nucleated RBC % 0 Smear Path Review PT INR APTT Sodium 132 L Potassium 2.8 L D Chloride 105 Carbon Dioxide 16.5 L Anion Gap 11 BUN 16 Creatinine 1.1 Estim Creat Clear Calc 60.9 L eGFR > 60 BUN/Creatinine Ratio [address] Glu mg/dL 103 Hemoglobin A1c 5.2 Calculated Osmolality 264 L Lactic Acid Calcium 6.9 L Corrected Calcium 7.7 L Magnesium 2.2 Total Bilirubin 0.5 AST 24 ALT 30 Alkaline Phosphatase 62 D Troponin I B-Natriuretic Peptide Total Protein 5.0 L Albumin 3.0 L D Globulin 2.0 L Albumin/Globulin Ratio 1.5 Triglycerides 47 Cholesterol < 50 L LDL Cholesterol, Calc 23 HDL Cholesterol 18 L Cholesterol/HDL Ratio 2.8 L Procalcitonin TSH 0.51 L Ur Collection Type Urine Color Urine Clarity Urine pH Ur Specific [place] Urine Protein Urine Glucose (UA) Urine Ketones Urine Blood Urine Nitrite Urine Bilirubin Urine Urobilinogen (Auto) Ur Leukocyte Esterase Urine RBC Urine WBC Ur Squamous Epith Cells Urine Bacteria Misc Test Result Platelets confirmed Quality Measures Quality Measures VTE prophylaxis Advance care planning discussed with:: patient and child Assessment & Plan Assessment Current Active Medications: Generic Name Dose Route Start Last Admin Trade Name Freq PRN Reason Stop Dose Admin Acetaminophen 650 mg 06/07/24 00:31 06/07/24 10:19 Acetaminophen 325 Mg Tablet PO 07/07/24 00:30 650 mg Q6H PRN Administration Fever >101.5 Acetaminophen 650 mg 06/07/24 00:31 Acetaminophen 325 Mg Tablet PO 07/07/24 00:30 Q6H PRN PAIN SCALE 1-3 (mild Hydrocodone Bitart/Acetaminophen 1 tab 06/07/24 00:31 06/07/24 09:57 Hydrocodone/Apap 5/325 Tablet PO 06/12/24 00:30 1 tab Q4HR PRN Administration PAIN SCALE 4-6 (Moderate Calcium Carbonate 600 mg 06/07/24 00:30 06/07/24 11:03 Calcium Carbonate 600 Mg Tablet PO 07/07/24 00:29 600 mg QDAY JORDYN Administration Cefepime HCl 2 gm/ Sodium 50 mls @ 100 mls/hr 06/07/24 14:00 06/07/24 13:50 Chloride IV 06/14/24 13:59 Infused Q8HR JORDYN Infusion Metronidazole 500 mg in 100 mls @ 200 mls/hr 06/07/24 14:00 06/07/24 13:58 Flagyl 500 Mg Iv IV 06/14/24 05:59 200 mls/hr Q8HR [facility] Administration Vancomycin HCl 250 mls @ 120 mls/hr 06/07/24 22:00 Vancomycin/Water 1250 Mg Ivpb IV 06/14/24 21:59 QPM@2200 [facility] Pharmacy Consult 1 each 06/07/24 09:00 Vancomycin Pharmacy To Dose 1 Each Each IV 07/07/24 08:59 QDAY PRN PROTOCOL Plan 78-year-old male with significant past medical history of hypertension, stage IV prostate cancer, currently on chemotherapy with last chemotherapy 8 days ago was brought in by family for fever, redness to the left hand and generalized body weakness. The patient was admitted to telemetry unit for further management of neutropenic fever. #Neutropenic fever #Sepsis 2/2 #Left hand cellulitis Secondary to chemotherapy that was done 8 days ago for stage IV prostate cancer. Meet SIRS criteria 2/4 with pulse rate 124 and white count 0.5 with left hand cellulitis, and hematopoietic failure were with neutropenia. Pro-Ilto 18.24. Received 4 L of IV NS bolus. Received IV vancomycin and Zosyn in the ED. Switched Zosyn to cefepime and Flagyl. Blood cultures 2/[address] head showed soft tissue swelling with air densities, ulnar styloid tip fracture. Swelling of left hand progressively worse, newly noted black discoloration around puncture wound. -Vancomycin pharmacy dosing (started 06/06) -Cefepime 2 g IV every 8 hours (started 06/07) -Flagyl 500 mg IV every 8 hours (started 06/07) -Tylenol 650 Mg every 6 hourly as needed for fever, along with cooling measures -Ordered blood and urine culture, follow-up -Ordered neutropenic isolation -MRI left hand and wrist, follow-up -Orthopedics consulted for left hand, recommendations appreciated -Transfer to accepting facility for hand business services specialist sales -480 mcg subcutaneous Neutragin. #Thrombocytopenia Secondary to chemotherapy 8 days ago Platelet count of 43, down to 25 -Hold heparin -Continue to monitor daily a.m. labs for platelets #Mild hypoosmolar hypovolemic hyponatremia, asymptomatic Likely secondary to poor oral intake -Received 4 L IV normal saline bolus -Daily a.m. labs for sodium level #Hypocalcemia #Hypomagnesemia Presented with calcium 8.0 and magnesium 1.4. Repleted magnesium with 4 g IV magnesium sulfate -Started on calcium carbonate 600 Mg daily -Monitor daily a.m. labs for calcium and magnesium #Primary hypertension Currently blood pressure soft -Monitor blood pressure closely #Stage IV prostate cancer Patient is on chemotherapy, last administered 8 days ago -Outpatient follow-up with oncologist Diet: Clear liquid diet DVT prophylaxis: SCDs CODE STATUS: Full code Lines: PIV Plan of care discussed with attending Dr. Villatoro. Kelvin Langley MD PGY?1 Attending Provider Attestation/Addendum I have examined the patient, reviewed labs and imaging findings, discussed the case with the resident(s), and reviewed entered orders. I agree with the plan of care as outlined in this note, with these additional summaries/recommendations: #Neutropenic fever # Pancytopenia- 2/2 chemotherapy # Metastatic prostate cancer Tmax 103.0 Fahrenheit, last chemotherapy 8 days prior, does not appear to have received prior prophylactic antibiotics, per oncologist did receive Neupogen 8 days prior with chemotherapy. Systolic heart function unknown. Localizing sources: Cellulitis and bacteremia No need for acyclovir at this time as no evidence of vesicular lesions. No need for fluconazole as no evidence of oral or other lesions suggestive candidiasis. Neutropenic precautions Follow-up blood and urine cultures Continue IV vancomycin, IV cefepime, and IV metronidazole Plan: Case discussed with patient's oncologist who is okay with additional Neupogen given the severity of patient's hand cellulitis/neutrophilia. Continue IV antibiotics. We will continue Neupogen until ANC greater than 500. Discharge criteria for neutropenic fever is negative blood cultures, afebrile for greater than 24 hours and ANC greater than 500. Daily hematology panel # Left hand cellulitis # Bacteremia Cellulitis secondary to puncture wound from shala wire 3 days ago. Symptoms have progressively worsened per patient. CT of hand revealed Soft tissue defect, soft tissue swelling and air densities between the first and second metacarpals. Continue IV antibiotics. Blood cultures showed GNR 2 out of 2 and will follow-up speciation. Orthopedics consulted who recommends MRI and improvement in WBC count before any surgical intervention can be undertaken if needed. As of now patient is able to move his fingers and sensation is intact although he is not fully able to make a fist at this time. Patient was evaluated by emergency room provider. Patient has had development of hemorrhagic blister bullae although this may be more related to patient's underlying thrombocytopenia. Patient's bullae and puncture wound were expressed with return of only serosanguineous fluid. No foul smell to indicate necrotizing infection. Also air tract seen on CT likely more related to the puncture wound. Nonetheless we will continue aggressive IV antibiotics and monitor for changes. In the meantime we have requested evaluation by hand surgeon. Patient updated on the plan and in agreement. Dr. Irving MD
--- NOTE | 2024-06-07 14:46 | PD.EDADDENDU ---
Emergency Room Addendum Addendum Narrative: 1400 After discussion with hospitalist, wound assessment bedside for second opinion and medical deliberation: 78-year-old male on chemotherapy for metastatic prostate cancer, immunocompromised/neutropenic, who presents with worsening cellulitis to his left hand after puncture from a fauzia shala 2 days ago. Patient was admitted overnight where there is already been a rapid progressing into the cellulitis of his left hand with development of a hemorrhagic blister/bulla. I reviewed the laboratory testing which confirms a neutropenia, however he appears to be developing a pancytopenia including a marked thrombocytopenia now with platelets in the 40s down from 70s. Looking at the wound, the erythema appears to be extending across the dorsum of the hand and wrapping to the anterior part of the second MCP. On the dorsum of the hand he seems to be developing a periphery of ecchymosis consistent with his thrombocytopenia. He has other patches of ecchymosis/spontaneous ecchymosis is likely due to his thrombocytopenia/age as well over the first webspace he has a 6 x 3 cm hemorrhagic blister. At the distal lip of his webspace is where the the obvious puncture wound is. I reviewed the wound with his son and he has been taking care of it at home and including squeezing it where he noted the return of clear-colored yellow fluid come from the wound, no purulence or pus. Currently there is no foul-smelling aspect of the wound consistent with a necrotizing infection. I reviewed the CT images noting superficial subcutaneous air that tracks to the wound opening which is more consistent with a air from the puncture wound and wound care by his son at home trying to squeeze out any purulence. At the distal aspect of the hemorrhagic blister just proximal to the puncture it is already open approximately 0.5 cm. I squeezed the blister noting primarily serosanguineous fluid, no purulence. Using a gauze I abraded the puncture wound opening and the opening of the blister to the roof the epidermis revealing whitish-green fibrinous tissue, no necrotic tissue. There is no pus and no foul-smelling discharge. We reviewed the benefits of continuing to deroofed the blister at this point since it is already open and draining and patient and his son are in accord. Using suture scissors I the removed approximately 75% of the hemorrhagic blister revealing primarily fibrinous, nonnecrotic tissue. There is some slight bruising/blood clotting likely secondary to his thrombocytopenia without obvious foul-smelling necrosis. I then probed the puncture wound opening with forceps and with squeezing produced primarily serosanguineous fluid. The puncture wound is approximately 1 cm in depth where using the scissors I extended the puncture wound opening to the depth of the wound. Wound then was cleaned with Betadine followed by sterile water and dressed with a nonadherent dressing. Overall I do not feel that there is a component of necrosis, subcutaneous air by the CT scan is secondary to the puncture. There is no signs of purulence as well. There is no purulence for wound culture. At this point I do not feel there is an immediate need drainage, and is an opportune time to aggressively treated with antibiotics, improve his immune and hematologic status if surgical drainage would be needed in the near future. I have openly discussed this and shared this with the patient, his son and these findings were communicated with the hospital service. I am appreciative for the opportunity to help in the care of this patient.
--- NOTE | 2024-06-07 15:09 | PC.CC ---
Addendum entered by Thu Terrazas 06/07/24 17:10: At 1700, CC received a phone call from [facility] who reported that her hand surgeon, Dr. Greco reported that the case is general surgery, and he declined at this time. CC notified Dr. Mukherjee, and he requested that transfer be continued. CC notified foreign exchange clerk-Rosalva. CC left transfer packet and radiology disc. Addendum entered by Thu Terrazas 06/07/24 16:34: At 1545, CC contacted [facility] and spoke to [facility] [place] whom reported no speciality is available. At 1551, CC contacted [facility] and spoke to [facility]. CC faxed packets for transfer and requested for Ultrasound Applications Specialist, Kathryn to send images. At 1625, CC received a phone call from [facility] who declined transfer due to being at capacity. Original Note: Adaptive Physical Education Specialist, Thu informed by E Resident Dr. Mukherjee that patient needs to be transferred for higher level of care due to requiring a hand surgeon; patient was admitted under telemetry care. At 1454, CC contacted [facility], per transfer center [place], [facility] does not have hand surgery available. At 1459, CC contacted [facility] and spoke to transfer center [facility] who requested that a packet be sent to her; CC faxed all needed information.
--- NOTE | 2024-06-07 18:55 | PC.NURSE ---
RESTING WITH OUT COMPLAINTS SINCE BACK FROM MRI
[2024-06-08] VITALS (7 sets, daily range): BP systolic 90–132; BP diastolic 55–82; PULSE 69–107; RESP 18–98; TEMP 36.5–37.3; O2SAT 96–98; BMI 27.6
[2024-06-08] MEDS: VANCOMYCIN/WATER 1250 MG IVPB 250 ML 120 MG IV (00:55)
[2024-06-08] MEDS: CEFEPIME INJ 2 GM in SODIUM CHLORIDE 0.9% (Popper) 50 ML IV ×3 (05:04→21:26)
[2024-06-08] MEDS: metroNIDAZOLE/NS 500 MG IVPB 500 MG/100 ML BAG 200 MG IV ×3 (05:25→21:27)
[2024-06-08 06:27] LABS: Basophils % (Auto) 1 % (0-2.5); Eosinophils % (Auto) 0 % (0-10); Hematocrit 23.2 % (41.0-53.0); Immature Granulocytes % (Auto) 0 % (0-0); Lymphocytes # (Auto) 0.3 Thou/mm3 (1.0-4.8); Lymphocytes % (Auto) 36 % (10-50); Mean Corpuscular HGB Conc 35.3 g/dl (31.0-37.0); Mean Corpuscular Hemoglobin 34.5 pg (25.0-35.0); Mean Corpuscular Volume 98 fL (80-100); Monocytes # (Auto) 0.1 Thou/mm3 (0.0-0.8); Monocytes % (Auto) 10 % (0-12); Neutrophils # (Auto) 0.5 Thou/mm3 (1.8-7.7); Neutrophils % (Auto) 52 % (37-80); Nucleated Red Blood Cell % 0 /100 WBC (0); RDW Standard Deviation 46.5 fL (35.1-43.9); Red Blood Count 2.38 Miln/mm3 (4.50-5.90)
[2024-06-08 06:29] LABS: Hemoglobin 8.2 g/dL (13.5-16.0); Platelet Count 19 Thou/mm3 (140-440); White Blood Count 0.9 Thou/mm3 (3.8-10.6)
[2024-06-08 06:30] LABS: Slide Review Platelets confirmed
[2024-06-08 06:58] LABS: Alanine Aminotransferase 25 U/L (10-49); Albumin/Globulin Ratio 1.3 (1.2-2.2); Alkaline Phosphatase 53 U/L (46-116); Anion Gap 11 (7-16); Aspartate Amino Transferase 16 U/L (0-34); BUN/Creatinine Ratio 21 Ratio (12-20); Bilirubin,Total 0.5 mg/dL (0.3-1.2); Blood Urea Nitrogen 15 mg/dL (9-23); Calcium 7.9 mg/dL (8.3-10.6); Calcium (Corrected) 8.7 mg/dL (8.5-10.1); Carbon Dioxide 17.4 mMol/L (20.0-31.0); Chloride 106 mMol/L (98-107); Creatinine (Component) 0.7 mg/dL (0.6-1.3); Estimated Creatinine Clearance 101.2 mL/min (>60); Globulin 2.3 gm/dL (2.3-3.5); Glucose 86 mg/dL (74-106); Magnesium 2.1 mg/dL (1.6-2.6); Osmolality,Calculated 268 (275-295); Potassium 2.8 mMol/L (3.4-5.1); Sodium 134 mMol/L (136-145); Total Protein 5.3 gm/dL (5.7-8.2); eGFR > 60 See Note
[2024-06-08] MEDS: CALCIUM CARBONATE 600 MG TABLET PO (08:51)
[2024-06-08] MEDS: POTASSIUM CHLORIDE 20 mEq TABCR 40 MEQ PO ×2 (08:52→16:31)
[2024-06-08] MEDS: POT PHOS 15 mMol in NS 250 ML 15 MMOL/250 ML BAG 62.5 MMOL IV ×4 (08:52→20:21)
--- NOTE | 2024-06-08 10:50 | PC.CM ---
I reviewed patient information on transfer request. I called and I spoke to Dr. Villatoro and he states they are consulting Dr. Simms at this time. Dr. Villatoro states the transfer is on hold at this time. He states he will get back to me after Dr. Simms sees patient.
[2024-06-08] MEDS: VANCOMYCIN/NS 750 MG IVPB 750 MG/150 ML BAG 120 MG IV ×2 (11:10→22:30)
--- NOTE | 2024-06-08 12:36 | PD.RESPRO ---
Documentation for date of: 06/08/24 Subjective Subjective Interval history: No overnight events. Patient seen and examined at bedside, resting comfortably. Patient states that subjectively his left hand feels better, seems less swollen and tender. Patient denies chest pain, shortness of breath, fever, chills, nausea, vomiting. Continue to trend WBCs. Patient had significantly low potassium and phosphorus, repleted. Recheck later today. Continue IV antibiotics. Exam Vital Signs Temp Pulse Resp BP Pulse Ox O2 Del Method 97.7 F 99 22 H 109/55 L 96 Room Air 06/08/24 08:00 06/08/24 08:00 06/08/24 08:00 06/08/24 08:00 06/08/24 08:00 06/08/24 08:00 Narrative Exam PE: Gen: Well-developed and well-nourished. Calm. HEENT: NCAT, PERRLA, EOMI, MMM, anicteric conjunctivae. CVS: normal S1 and S2. RRR. No M/R/G. Resp: CTA B/L. No rhonchi, rales, crackles or wheezing. Abd: soft, non-tender, non-distended. BS+ in all 4 quadrants. MSK: Good ROM in BUE & BLE. Diffuse bruises, various stages of healing. Right lower extremity swollen. Left hand edematous, tender, erythematous, with black discoloration from puncture wound, stable. Left hand sensation and pulse intact. Neuro: CN II-XII grossly intact. Strength 5/5 in BUE & BLE. Alert and oriented x3. Psych: appropriate mood and affect. Objective Labs 06/08/24 04:45 06/08/24 14:15 Labs: Laboratory Results - last 24 hr 06/08/24 04:45 WBC 0.9 L* D RBC 2.38 L Hgb 8.2 L Hct 23.2 L MCV 98 MCH 34.5 MCHC 35.3 RDW Std Deviation 46.5 H Plt Count 19 L* D Neut % (Auto) 52 Lymph % (Auto) 36 [place] % (Auto) 10 Eos % (Auto) 0 Baso % (Auto) 1 Neut # (Auto) 0.5 L Lymph # (Auto) 0.3 L [place] # (Auto) 0.1 Eos # (Auto) 0.0 Baso # (Auto) 0.0 Immature Gran # (Auto) 0.00 Absolute Nucleated RBC 0.00 Immature Gran % 0 Nucleated RBC % 0 Sodium 134 L Potassium 2.8 L Chloride 106 Carbon Dioxide 17.4 L Anion Gap 11 BUN 15 Creatinine 0.7 Estim Creat Clear Calc 101.2 eGFR > 60 BUN/Creatinine Ratio 21 H Glucose 86 Calculated Osmolality 268 L Calcium 7.9 L Corrected Calcium 8.7 Phosphorus 2.0 L Magnesium 2.1 Total Bilirubin 0.5 AST 16 ALT 25 Alkaline Phosphatase 53 Total Protein 5.3 L Albumin 3.0 L Globulin 2.3 Albumin/Globulin Ratio 1.3 Misc Test Result Platelets confirmed Quality Measures Quality Measures VTE prophylaxis Advance care planning discussed with:: patient Assessment & Plan Assessment Current Active Medications: Generic Name Dose Route Start Last Admin Trade Name Freq PRN Reason Stop Dose Admin Acetaminophen 650 mg 06/07/24 00:31 Acetaminophen 325 Mg Tablet PO 07/07/24 00:30 Q6H PRN PAIN SCALE 1-3 (mild Acetaminophen 650 mg 06/08/24 11:06 Acetaminophen 325 Mg Tablet PO 07/07/24 00:30 Q6H PRN Fever >100.4 Hydrocodone Bitart/Acetaminophen 1 tab 06/07/24 00:31 06/07/24 09:57 Hydrocodone/Apap 5/325 Tablet PO 06/12/24 00:30 1 tab Q4HR PRN Administration PAIN SCALE 4-6 (Moderate Calcium Carbonate 600 mg 06/07/24 00:30 06/08/24 08:51 Calcium Carbonate 600 Mg Tablet PO 07/07/24 00:29 600 mg QDAY JORDYN Administration Cefepime HCl 2 gm/ Sodium 50 mls @ 100 mls/hr 06/07/24 14:00 06/08/24 06:28 Chloride IV 06/14/24 13:59 Infused Q8HR JORDYN Infusion Metronidazole 500 mg in 100 mls @ 200 mls/hr 06/07/24 14:00 06/08/24 06:29 Flagyl 500 Mg Iv IV 06/14/24 05:59 Infused Q8HR JORDYN Infusion Potassium Phosphate 15 mmol in 250 mls @ 62.5 mls/hr 06/08/24 07:16 06/08/24 08:52 Pot Phos 15 Mmol In Ns 250 Ml IV 06/08/24 15:15 62.5 mls/hr Q4H JORDYN Administration Vancomycin/Sodium Chloride 750 mg in 150 mls @ 120 mls/hr 06/08/24 10:00 06/08/24 11:10 Vancomycin/Ns 750 Mg Ivpb IV 06/15/24 09:59 120 mls/hr Q12H JORDYN Administration Pharmacy Consult 1 each 06/07/24 09:00 Vancomycin Pharmacy To Dose 1 Each Each IV 07/07/24 08:59 QDAY PRN PROTOCOL Plan 78-year-old male with significant past medical history of hypertension, stage IV prostate cancer, currently on chemotherapy with last chemotherapy 8 days ago was brought in by family for fever, redness to the left hand and generalized body weakness. The patient was admitted to telemetry unit for further management of neutropenic fever. #Neutropenic fever #Sepsis 2/2 #Left hand cellulitis Secondary to chemotherapy that was done 8 days ago for stage IV prostate cancer. Meet SIRS criteria 2/4 with pulse rate 124 and white count 0.5 with left hand cellulitis, and hematopoietic failure were with neutropenia. Pro-Lito 18.24. Received 4 L of IV NS bolus. Received IV vancomycin and Zosyn in the ED. Switched Zosyn to cefepime and Flagyl. Blood cultures 2/[address] head showed soft tissue swelling with air densities, ulnar styloid tip fracture. Swelling of left hand progressively worse, newly noted black discoloration around puncture wound. Patient reexamined, left hand swelling and discoloration stable compared to yesterday. MRI showed significant soft tissue swelling without abscess or osteomyelitis. Transfer nurse consulted with hand surgeon specialist who recommended continued treatment with general surgery and IV antibiotics at [facility]. -Vancomycin pharmacy dosing (started 06/06) -Cefepime 2 g IV every 8 hours (started 06/07) -Flagyl 500 mg IV every 8 hours (started 06/07) -Tylenol 650 Mg every 6 hourly as needed for fever, along with cooling measures -Ordered blood and urine culture, follow-up -Ordered neutropenic isolation -Orthopedics consulted for left hand, recommendations appreciated -480 mcg subcutaneous Neupogen. #Thrombocytopenia Secondary to chemotherapy 8 days ago Platelet count of 43, down to 25 -Hold heparin -Continue to monitor daily a.m. labs for platelets #Mild hypoosmolar hypovolemic hyponatremia, asymptomatic Likely secondary to poor oral intake -Received 4 L IV normal saline bolus -Daily a.m. labs for sodium level #Hypocalcemia #Hypomagnesemia Presented with calcium 8.0 and magnesium 1.4. Repleted magnesium with 4 g IV magnesium sulfate -Started on calcium carbonate 600 Mg daily -Monitor daily a.m. labs for calcium and magnesium #Primary hypertension Currently blood pressure soft -Monitor blood pressure closely #Stage IV prostate cancer Patient is on chemotherapy, last administered 8 days ago -Outpatient follow-up with oncologist Diet: Regular DVT prophylaxis: SCDs CODE STATUS: Full code Lines: PIV Plan of care discussed with attending Dr. Villatoro. Kelvin Langley MD PGY?1 Attending Provider Attestation/Addendum I have examined the patient, reviewed labs and imaging findings, discussed the case with the resident(s), and reviewed entered orders. I agree with the plan of care as outlined in this note, with these additional summaries/recommendations: #Neutropenic fever # Pancytopenia- 2/2 chemotherapy # Metastatic prostate cancer Tmax 103.0 Fahrenheit, last chemotherapy 8 days prior, does not appear to have received prior prophylactic antibiotics, per oncologist did receive Neupogen 8 days prior with chemotherapy. Systolic heart function unknown. Localizing sources: Cellulitis and bacteremia No need for acyclovir at this time as no evidence of vesicular lesions. No need for fluconazole as no evidence of oral or other lesions suggestive candidiasis. Neutropenic precautions Follow-up blood and urine cultures Continue IV vancomycin, IV cefepime, and IV metronidazole Plan: Case discussed with patient's oncologist who is okay with additional Neupogen given the severity of patient's hand cellulitis/neutrophilia. Continue IV antibiotics. We will continue Neupogen until ANC greater than 500. Discharge criteria for neutropenic fever is negative blood cultures, afebrile for greater than 24 hours and ANC greater than 500. Daily hematology panel # Left hand cellulitis # Bacteremia Cellulitis secondary to puncture wound from shala wire 3 days ago. Symptoms have progressively worsened per patient. CT of hand revealed Soft tissue defect, soft tissue swelling and air densities between the first and second metacarpals. Continue IV antibiotics. Blood cultures showed GNR 2 out of 2 and will follow-up speciation. Orthopedics consulted who recommends MRI and improvement in WBC count before any surgical intervention can be undertaken if needed. As of now patient is able to move his fingers and sensation is intact although he is not fully able to make a fist at this time. Patient was evaluated by emergency room provider. Patient has had development of hemorrhagic blister bullae although this may be more related to patient's underlying thrombocytopenia. Patient's bullae and puncture wound were expressed with return of only serosanguineous fluid. No foul smell to indicate necrotizing infection. Also air tract seen on CT likely more related to the puncture wound. Nonetheless we will continue aggressive IV antibiotics and monitor for changes. Patient updated on the plan and in agreement. 06/08/24: Patient seen at bedside. No acute overnight events. Patient is now afebrile and we will monitor closely for return of fevers. Continue broad spectrum abx and awaiting speciation of blood cxs. Patient was attempted to transfer for hand surgery although was not accepted. Patient reports improvement in swelling in his hand. Sensation is intact throughout and has good capillary refill. Cellulitis did spread proximally into mid forearm. Hand MRI showed diffuse cellulitis with severe edema with no evidence of abscess or osteomyelitis. Orthopedics following closely. We will proceed with additional dose of neupogen today for neutropenia/leukopenia which is slightly improved compared to yesterday. Patient updated on the plan and in agreement. Dr. Irving MD
[2024-06-08] MEDS: FILGRASTIM INJ (ZARXIO) 480 MCG/0.8 ML SYRINGE SC (14:15)
[2024-06-08 14:41] LABS: Anion Gap 8 (7-16); BUN/Creatinine Ratio 22 Ratio (12-20); Blood Urea Nitrogen 13 mg/dL (9-23); Calcium 7.6 mg/dL (8.3-10.6); Chloride 110 mMol/L (98-107); Creatinine (Component) 0.6 mg/dL (0.6-1.3); Estimated Creatinine Clearance 118.1 mL/min (>60); Glucose 124 mg/dL (74-106); Osmolality,Calculated 273 (275-295); Phosphorous 1.7 mg/dL (2.4-5.1); Potassium 2.8 mMol/L (3.4-5.1); Sodium 136 mMol/L (136-145); eGFR > 60 See Note
[2024-06-08 15:25] LABS: Uric Acid 3.4 mg/dL (3.7-9.2)
[2024-06-09] VITALS (11 sets, daily range): BP systolic 120–185; BP diastolic 56–86; PULSE 83–99; RESP 17–98; TEMP 36–37.1; O2SAT 96–98; BMI 28.3; BMI 28.1
[2024-06-09] MEDS: metroNIDAZOLE/NS 500 MG IVPB 500 MG/100 ML BAG 200 MG IV ×3 (05:09→21:15)
[2024-06-09] MEDS: CEFEPIME INJ 2 GM in SODIUM CHLORIDE 0.9% (Popper) 50 ML IV ×3 (05:09→21:16)
[2024-06-09 06:19] LABS: Basophils # (Auto) 0.1 Thou/mm3 (0.0-0.2); Basophils % (Auto) 1 % (0-2.5); Eosinophils % (Auto) 0 % (0-10); Hematocrit 22.3 % (41.0-53.0); Immature Granulocytes % (Auto) 2 % (0-0); Immature Granulocytes Auto 0.11 Thou/mm3 (0.00-0.00); Lymphocytes # (Auto) 0.7 Thou/mm3 (1.0-4.8); Lymphocytes % (Auto) 14 % (10-50); Mean Corpuscular HGB Conc 35.9 g/dl (31.0-37.0); Mean Corpuscular Hemoglobin 34.8 pg (25.0-35.0); Mean Corpuscular Volume 97 fL (80-100); Monocytes # (Auto) 0.2 Thou/mm3 (0.0-0.8); Monocytes % (Auto) 5 % (0-12); Neutrophils # (Auto) 3.7 Thou/mm3 (1.8-7.7); Neutrophils % (Auto) 78 % (37-80); Nucleated Red Blood Cell % 0 /100 WBC (0); RDW Standard Deviation 47.7 fL (35.1-43.9); White Blood Count 4.8 Thou/mm3 (3.8-10.6)
[2024-06-09 06:21] LABS: Platelet Count 23 Thou/mm3 (140-440)
[2024-06-09 06:22] LABS: Slide Review Platelets confirmed
[2024-06-09 06:35] LABS: Alanine Aminotransferase 18 U/L (10-49); Albumin, Serum 2.8 gm/dL (3.4-4.8); Albumin/Globulin Ratio 1.3 (1.2-2.2); Alkaline Phosphatase 51 U/L (46-116); Anion Gap 13 (7-16); Aspartate Amino Transferase 20 U/L (0-34); BUN/Creatinine Ratio 22 Ratio (12-20); Bilirubin,Total 0.5 mg/dL (0.3-1.2); Blood Urea Nitrogen 11 mg/dL (9-23); Carbon Dioxide 17.3 mMol/L (20.0-31.0); Chloride 111 mMol/L (98-107); Creatinine (Component) 0.5 mg/dL (0.6-1.3); Globulin 2.2 gm/dL (2.3-3.5); Glucose 76 mg/dL (74-106); Magnesium 1.7 mg/dL (1.6-2.6); Osmolality,Calculated 279 (275-295); Phosphorous 1.7 mg/dL (2.4-5.1); Sodium 141 mMol/L (136-145); eGFR > 60 See Note
[2024-06-09 06:39] LABS: Potassium 2.7 mMol/L (3.4-5.1)
[2024-06-09] MEDS: POTASSIUM CHLORIDE 20 mEq TABCR 40 MEQ PO (07:54)
[2024-06-09] MEDS: POTASSIUM PHOS 22.5 MMOL in SODIUM CHLORIDE 0.9% 500 ML 500 ML 82.778 MMOL IV (07:54)
[2024-06-09] MEDS: CALCIUM CARBONATE 600 MG TABLET PO (08:03)
[2024-06-09] MEDS: Magnesium Sulfate 4 GM Ivpb 4 GM/50 ML BAG IV (08:33)
[2024-06-09 11:04] LABS: Vancomycin,Trough 7.6 mcg/mL (5.0-10.0)
[2024-06-09] MEDS: VANCOMYCIN/D5W 1,250 MG IVPB 250 ML 120 MG IV ×2 (11:47→22:16)
--- NOTE | 2024-06-09 13:09 | ESPR_ITS ---
<Statement entered by Jesi Fox MD - 06/09/24 15:26> I discussed with and supervised the internet e commerce specialist physician who took care of this patient. I personally saw and examined the patient and discussed the assessment and plan with the entire medicine team, including my attending Dr. Villatoro, I agree with the assessment and plan as documented below Patient seen and examined at bedside today. Labs and imaging reviewed. This morning at bedside Patient stated feeling better denied any acute complaints. He only stated that he feels his hand is more swollen but does not complain of too much pain. Sensation and pulses are preserved, blood cultures growing pansensitive E. coli. Per orthopedic surgery recommendations due to the patient MRI did not show abscess or osteomyelitis he will evaluate and give further recommendations for possible surgical intervention versus conservative management. We will continue IV antibiotics cefepime Flagyl and vancomycin. WBCs has been uptrending and patient neutropenia resolved after 2 doses of filgrastim. Will contact patient oncologist to be able to resume abiraterone and prednisone. Jesi Fox MD PGY-3 Disclaimer: Despite multiple revisions, due to the dictation software being used, the document bellow may not be free of grammatical errors including phonetic/typographic errors. However, this does not deter from our commitment to providing health care in the patient's best interest in mind. <Statement entered by Sharon Taylor MD - 06/09/24 14:41> Patient seen and examined at bedside. Patient's left hand swelling has improved, with radial pulse felt. Patient states that his sensation is intact bilaterally in both extremities and feels the same. MRI showed significant soft tissue swelling but no abscess or osteomyelitis. Pending orthopedic evaluation for possible intervention versus conservative management. Patient is still on IV cefepime, Flagyl, vancomycin. Patient already received 2 doses of fill gastrin. Med reconciliation was done per nurse at bedside, and will reach out to patient's oncologist prior to starting his home medications including Abiraterone and Prednisone. No acute overnight events reported. Patient has been afebrile in the last 24 hours and patient microbiology shows E. coli bacteremia and will be treated with the above antibiotics. I discussed with and supervised the internet e commerce specialist physician who took care of this patient. I personally saw and examined the patient and discussed the assessment and plan with the entire medicine team, including my attending , I agree with most of the assessment and plan as documented below Sharon Taylor M.D. PGY-2 Documentation for date of: 06/09/24 Subjective Subjective Interval history: No overnight events. Patient seen and examined at bedside, resting comfortably. Patient denies pain to left hand, states it feels subjectively better. Does note erythema spreading up forearm. Denies fever, chills, nausea, vomiting. Continue IV antibiotics. Will consult patient's oncologist tomorrow regarding resuming patient's chemotherapy. Exam Vital Signs Temp Pulse Resp BP Pulse Ox O2 Del Method 96.8 F 95 18 170/85 H 96 Room Air 06/09/24 12:00 06/09/24 12:00 06/09/24 12:00 06/09/24 12:00 06/09/24 12:00 06/09/24 12:00 Narrative Exam PE: Gen: Well-developed and well-nourished. Calm. HEENT: NCAT, PERRLA, EOMI, MMM, anicteric conjunctivae. CVS: normal S1 and S2. RRR. No M/R/G. Resp: CTA B/L. No rhonchi, rales, crackles or wheezing. Abd: soft, non-tender, non-distended. BS+ in all 4 quadrants. MSK: Good ROM in BUE & BLE. Diffuse bruises, various stages of healing. Right lower extremity swollen. Left hand edematous, tender, erythematous, with black discoloration from puncture wound, mildly improved. Erythema spread on the dorsal forearm to elbow. Left hand sensation and pulse intact. Neuro: CN II-XII grossly intact. Strength 5/5 in BUE & BLE. Alert and oriented x3. Psych: appropriate mood and affect. Objective Labs 06/09/24 05:42 06/09/24 05:42 Labs: Laboratory Results - last 24 hr 06/08/24 06/09/24 06/09/24 14:15 05:42 10:20 WBC 4.8 D RBC 2.30 L Hgb 8.0 L Hct 22.3 L MCV 97 MCH 34.8 MCHC 35.9 RDW Std Deviation 47.7 H Plt Count 23 L* D Neut % (Auto) 78 Lymph % (Auto) 14 [place] % (Auto) 5 Eos % (Auto) 0 Baso % (Auto) 1 Neut # (Auto) 3.7 Lymph # (Auto) 0.7 L [place] # (Auto) 0.2 Eos # (Auto) 0.0 Baso # (Auto) 0.1 Immature Gran # (Auto) 0.11 H Absolute Nucleated RBC 0.00 Immature Gran % 2 H Nucleated RBC % 0 Sodium 136 141 Potassium 2.8 L 2.7 L* Chloride 110 H 111 H Carbon Dioxide 18.0 L 17.3 L Anion Gap 8 13 BUN 13 11 Creatinine 0.6 0.5 L Estim Creat Clear Calc 118.1 133.0 eGFR > 60 > 60 BUN/Creatinine Ratio 22 H 22 H Glucose 124 H 76 Calculated Osmolality 273 L 279 Uric Acid 3.4 L Calcium 7.6 L 8.0 L Corrected Calcium 9.0 Phosphorus 1.7 L 1.7 L Magnesium 1.7 Total Bilirubin 0.5 AST 20 ALT 18 Alkaline Phosphatase 51 Total Protein 5.0 L Albumin 2.8 L Globulin 2.2 L Albumin/Globulin Ratio 1.3 Vancomycin Trough 7.6 Misc Test Result Platelets confirmed Quality Measures Quality Measures VTE prophylaxis Advance care planning discussed with:: patient Assessment & Plan Assessment Current Active Medications: Generic Name Dose Route Start Last Admin Trade Name Freq PRN Reason Stop Dose Admin Acetaminophen 650 mg 06/07/24 00:31 Acetaminophen 325 Mg Tablet PO 07/07/24 00:30 Q6H PRN PAIN SCALE 1-3 (mild Acetaminophen 650 mg 06/08/24 11:06 Acetaminophen 325 Mg Tablet PO 07/07/24 00:30 Q6H PRN Fever >100.4 Hydrocodone Bitart/Acetaminophen 1 tab 06/07/24 00:31 06/07/24 09:57 Hydrocodone/Apap 5/325 Tablet PO 06/12/24 00:30 1 tab Q4HR PRN Administration PAIN SCALE 4-6 (Moderate Calcium Carbonate 600 mg 06/07/24 00:30 06/09/24 08:03 Calcium Carbonate 600 Mg Tablet PO 07/07/24 00:29 600 mg QDAY JORDYN Administration Cefepime HCl 2 gm/ Sodium 50 mls @ 100 mls/hr 06/07/24 14:00 06/09/24 05:40 Chloride IV 06/14/24 13:59 Infused Q8HR JORDYN Infusion Metronidazole 500 mg in 100 mls @ 200 mls/hr 06/07/24 14:00 06/09/24 05:40 Flagyl 500 Mg Iv IV 06/14/24 05:59 Infused Q8HR JORDYN Infusion Vancomycin HCl/Dextrose 250 mls @ 120 mls/hr 06/09/24 11:15 06/09/24 11:47 Vancomycin/D5w 1,250 Mg Ivpb IV 06/16/24 11:14 120 mls/hr BID@1000,2200 [facility] Administration Pharmacy Consult 1 each 06/07/24 09:00 Vancomycin Pharmacy To Dose 1 Each Each IV 07/07/24 08:59 QDAY PRN PROTOCOL Plan 78-year-old male with significant past medical history of hypertension, stage IV prostate cancer, currently on chemotherapy with last chemotherapy 8 days ago was brought in by family for fever, redness to the left hand and generalized body weakness. The patient was admitted to telemetry unit for further management of neutropenic fever. #Neutropenic fever #Sepsis 2/2 #Left hand cellulitis Secondary to chemotherapy that was done 8 days ago for stage IV prostate cancer. Meet SIRS criteria 2/4 with pulse rate 124 and white count 0.5 with left hand cellulitis, and hematopoietic failure were with neutropenia. Pro-Lito 18.24. Received 4 L of IV NS bolus. Received IV vancomycin and Zosyn in the ED. Switched Zosyn to cefepime and Flagyl. Blood cultures 2/[address] head showed soft tissue swelling with air densities, ulnar styloid tip fracture. Swelling of left hand progressively worse, newly noted black discoloration around puncture wound. Patient reexamined, left hand swelling and discoloration stable compared to yesterday. MRI showed significant soft tissue swelling without abscess or osteomyelitis. Transfer nurse consulted with hand surgeon specialist who recommended continued treatment with general surgery and IV antibiotics at [facility]. Urine culture negative. Blood cultures grew pansensitive E. coli. Patient received Neupogen 40 mg subcu x 2 days. ANC significantly improved to 3.7. -Vancomycin pharmacy dosing (started 06/06) -Cefepime 2 g IV every 8 hours (started 06/07) -Flagyl 500 mg IV every 8 hours (started 06/07) -Tylenol 650 Mg every 6 hourly as needed for fever, along with cooling measures -Ordered neutropenic isolation -Orthopedics consulted for left hand, recommendations appreciated #Thrombocytopenia Secondary to chemotherapy 8 days ago Platelet count of 43, down to 25 -Hold heparin -Continue to monitor daily a.m. labs for platelets #Mild hypoosmolar hypovolemic hyponatremia, asymptomatic Likely secondary to poor oral intake -Received 4 L IV normal saline bolus -Daily a.m. labs for sodium level #Hypocalcemia #Hypomagnesemia Presented with calcium 8.0 and magnesium 1.4. Repleted magnesium with 4 g IV magnesium sulfate -Started on calcium carbonate 600 Mg daily -Monitor daily a.m. labs for calcium and magnesium #Primary hypertension Currently blood pressure soft -Monitor blood pressure closely #Stage IV prostate cancer Patient is on chemotherapy, last administered 8 days ago -Outpatient follow-up with oncologist -Consult patient's oncologist to potentially resume patient's chemotherapy meds and patient. Diet: Regular DVT prophylaxis: SCDs CODE STATUS: Full code Lines: PIV Plan of care discussed with senior resident Dr. Taylor PGY?[address] Fox PGY?3, and attending Dr. Villatoro. Kelvin Langley MD PGY?1 Attending Provider Attestation/Addendum I have examined the patient, reviewed labs and imaging findings, discussed the case with the resident(s), and reviewed entered orders. I agree with the plan of care as outlined in this note, with these additional summaries/recommendations: #Neutropenic fever # Pancytopenia- 2/2 chemotherapy # Metastatic prostate cancer Tmax 103.0 Fahrenheit, last chemotherapy 8 days prior, does not appear to have received prior prophylactic antibiotics, per oncologist did receive Neupogen 8 days prior with chemotherapy. Systolic heart function unknown. Localizing sources: Cellulitis and bacteremia No need for acyclovir at this time as no evidence of vesicular lesions. No need for fluconazole as no evidence of oral or other lesions suggestive candidiasis. Neutropenic precautions Follow-up blood and urine cultures Continue IV vancomycin, IV cefepime, and IV metronidazole Plan: Case discussed with patient's oncologist who is okay with additional Neupogen given the severity of patient's hand cellulitis/neutrophilia. Continue IV antibiotics. We will continue Neupogen until ANC greater than 500. Discharge criteria for neutropenic fever is negative blood cultures, afebrile for greater than 24 hours and ANC greater than 500. Daily hematology panel # Left hand cellulitis # Bacteremia Cellulitis secondary to puncture wound from shala wire 3 days ago. Symptoms have progressively worsened per patient. CT of hand revealed Soft tissue defect, soft tissue swelling and air densities between the first and second metacarpals. Continue IV antibiotics. Blood cultures showed GNR 2 out of 2 and will follow- up speciation. Orthopedics consulted who recommends MRI and improvement in WBC count before any surgical intervention can be undertaken if needed. As of now patient is able to move his fingers and sensation is intact although he is not fully able to make a fist at this time. Patient was evaluated by emergency room provider. Patient has had development of hemorrhagic blister bullae although this may be more related to patient's underlying thrombocytopenia. Patient's bullae and puncture wound were expressed with return of only serosanguineous fluid. No foul smell to indicate necrotizing infection. Also air tract seen on CT likely more related to the puncture wound. Nonetheless we will continue aggressive IV antibiotics and monitor for changes. Patient updated on the plan and in agreement. 06/08/24: Patient seen at bedside. No acute overnight events. Patient is now afebrile and we will monitor closely for return of fevers. Continue broad spectrum abx and awaiting speciation of blood cxs. Patient was attempted to transfer for hand surgery although was not accepted. Patient reports improvement in swelling in his hand. Sensation is intact throughout and has good capillary refill. Cellulitis did spread proximally into mid forearm. Hand MRI showed diffuse cellulitis with severe edema with no evidence of abscess or osteomyelitis. Orthopedics following closely. We will proceed with additional dose of neupogen today for neutropenia/leukopenia which is slightly improved compared to yesterday. Patient updated on the plan and in agreement. 06/09/24: Patient seen at bedside. No acute overnight events. Today patient reports improvement in the swelling of his hand although feels slightly more painful secondary to blood pressure just being taken. DC blood pressure readings on left arm. Patient's cellulitis spread slightly more proximally in to patient's mid forearm but overall less warmth to touch and swelling. Sensation still intact, capillary refill <3 seconds, and patient able to move fingers freely although not able to make complete fist. Borders now marked and we will monitor to see if spreads further. Patient was not accepted for transfer by multiple facilities and currently placed on hold. Orthopedics consulted and recommendations appreciated. Blood cultures grew E. coli and patient on broad-spectrum antibiotics. Now afebrile for over 36 hours and we will continue to monitor. Patient's neutrophil count now back in normal range. No further Neupogen needed at this time. Patient has now developed persistent hypokalemia and we will aggressively replete today. Hypophosphatemia present and replacement given. Will follow-up with patient's oncologist today. Patient's daughter updated at bedside. Repeat hematology and chemistry panel in AM. Dr. Irving MD
--- NOTE | 2024-06-09 17:55 | PC.NURSE ---
came in to see pt.stated to keep pt. on antibiotic.
[2024-06-10] VITALS (12 sets, daily range): BP systolic 142–191; BP diastolic 64–92; PULSE 89–107; RESP 16–96; TEMP 36.1–36.6; O2SAT 97–98
[2024-06-10] MEDS: CEFEPIME INJ 2 GM in SODIUM CHLORIDE 0.9% (Popper) 50 ML IV ×3 (05:39→21:12)
[2024-06-10] MEDS: metroNIDAZOLE/NS 500 MG IVPB 500 MG/100 ML BAG 200 MG IV ×3 (05:39→21:12)
[2024-06-10 05:47] LABS: Basophils # (Auto) 0.1 Thou/mm3 (0.0-0.2); Basophils % (Auto) 1 % (0-2.5); Eosinophils % (Auto) 0 % (0-10); Hematocrit 23.1 % (41.0-53.0); Immature Granulocytes % (Auto) 3 % (0-0); Lymphocytes # (Auto) 1.4 Thou/mm3 (1.0-4.8); Lymphocytes % (Auto) 12 % (10-50); Mean Corpuscular HGB Conc 35.5 g/dl (31.0-37.0); Mean Corpuscular Hemoglobin 34.3 pg (25.0-35.0); Mean Corpuscular Volume 97 fL (80-100); Monocytes # (Auto) 0.7 Thou/mm3 (0.0-0.8); Monocytes % (Auto) 6 % (0-12); Neutrophils # (Auto) 8.6 Thou/mm3 (1.8-7.7); Neutrophils % (Auto) 78 % (37-80); Nucleated Red Blood Cell % 0 /100 WBC (0); RDW Standard Deviation 48.5 fL (35.1-43.9); Red Blood Count 2.39 Miln/mm3 (4.50-5.90)
[2024-06-10 06:08] LABS: Alanine Aminotransferase 17 U/L (10-49); Albumin, Serum 2.9 gm/dL (3.4-4.8); Albumin/Globulin Ratio 1.4 (1.2-2.2); Alkaline Phosphatase 66 U/L (46-116); Anion Gap 11 (7-16); Aspartate Amino Transferase 20 U/L (0-34); BUN/Creatinine Ratio 12 Ratio (12-20); Bilirubin,Total 0.4 mg/dL (0.3-1.2); Blood Urea Nitrogen 7 mg/dL (9-23); Calcium 7.8 mg/dL (8.3-10.6); Calcium (Corrected) 8.7 mg/dL (8.5-10.1); Carbon Dioxide 20.5 mMol/L (20.0-31.0); Chloride 108 mMol/L (98-107); Creatinine (Component) 0.6 mg/dL (0.6-1.3); Estimated Creatinine Clearance 111.2 mL/min (>60); Globulin 2.1 gm/dL (2.3-3.5); Glucose 109 mg/dL (74-106); Magnesium 1.6 mg/dL (1.6-2.6); Osmolality,Calculated 276 (275-295); Phosphorous 1.9 mg/dL (2.4-5.1); Sodium 139 mMol/L (136-145); eGFR > 60 See Note
[2024-06-10 06:13] LABS: Potassium 2.4 mMol/L (3.4-5.1)
[2024-06-10 06:14] LABS: Hemoglobin 8.2 g/dL (13.5-16.0); Platelet Count 35 Thou/mm3 (140-440)
[2024-06-10] MEDS: POTASSIUM CHLORIDE 20 mEq TABCR 40 MEQ PO (06:30)
[2024-06-10 06:35] LABS: Slide Review Platelets confirmed
[2024-06-10] MEDS: Lisinopril 2.5 MG TABLET 5 MG PO ×2 (08:02→09:14)
[2024-06-10] MEDS: POTASSIUM PHOS 22.5 MMOL in SODIUM CHLORIDE 0.9% 500 ML 500 ML 82.778 MMOL IV (08:02)
[2024-06-10] MEDS: TAMSULOSIN HCL 0.4 MG CAPSULE 0.8 MG PO (08:03)
[2024-06-10] MEDS: CALCIUM CARBONATE 600 MG TABLET PO (08:03)
[2024-06-10 08:29] LABS: Creatine Kinase 28 U/L (34-171)
[2024-06-10] MEDS: MEGESTROL ACET SUSP 400 MG/10 ML UDC PO (09:14)
[2024-06-10] MEDS: POTASSIUM CHLORIDE 20 mEq TABCR PO (09:14)
[2024-06-10] MEDS: NAPH,KPH MBDB 1 PACKET (1.5 GM) PO ×2 (09:15→21:12)
[2024-06-10] MEDS: Magnesium Sulfate 4 GM Ivpb 4 GM/50 ML BAG IV (09:15)
[2024-06-10] MEDS: VANCOMYCIN/D5W 1,250 MG IVPB 250 ML 120 MG IV ×2 (10:35→21:13)
--- NOTE | 2024-06-10 13:06 | PC.CM ---
I spoke to Dr. Bailey to follow up on transfer request. Patient's transfer was placed on hold on Sunday. states transfer will more than likely be canceled. He was going to reach out to Dr. Simms to confirm. He states he will put in a note once he speaks to Dr. Simms
--- NOTE | 2024-06-10 14:43 | ESPR_ITS ---
<Statement entered by Sharon Taylor MD - 06/10/24 16:25> Patient seen and examined at bedside. No acute overnight events reported. 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 Patient will start Megestrol and Ensure supplements. Pending ortho recommendations regarding any surgical intervention and possible need for transfer to tertiary center. Patient's oncologist was contacted again today, and was told to hold his cancer medications for now in the setting of active infection. I discussed with and supervised the manager internship physician who took care of this patient. I personally saw and examined the patient and discussed the assessment and plan with the entire medicine team, including my attending Dr. Villatoro, I agree with most of the assessment and plan as documented below Sharon Taylor M.D. PGY-2 <Statement entered by Jesi Fox MD - 06/10/24 16:15> I discussed with and supervised the manager internship physician who took care of this patient. I personally saw and examined the patient and discussed the assessment and plan with the entire medicine team, including my attending Dr. Villatoro, I agree with the assessment and plan as documented below Patient seen and examined at bedside today. Labs and imaging reviewed. No overnight acute events This morning the bedside, patient states that he is feeling better denied any other complaints at this moment, we spoke with patient about oncology's about resuming patient abiraterone and prednisone for which he stated and he recommended not resuming at this moment. WBCs has been uptrending, will continue IV cefepime, vancomycin and Flagyl. Pending orthopedic surgery recommendations about recommendations for possible transfer or conservative management or surgical intervention. Jesi Fox MD PGY-3 Disclaimer: Despite multiple revisions, due to the dictation software being used, the document bellow may not be free of grammatical errors including phonetic/typographic errors. However, this does not deter from our commitment to providing health care in the patient's best interest in mind. Documentation for date of: 06/10/24 Subjective Subjective Interval history: No overnight events. Patient seen and examined at bedside, resting comfortably. Patient denies pain, fever, chills, shortness of breath. Patient endorses difficulty swallowing and chewing his food, change diet to dysphagia level 2, ST consulted. Follow-up speech therapy eval. Exam Vital Signs Temp Pulse Resp BP Pulse Ox O2 Del Method 97.5 F 95 21 H 174/87 H 97 Room Air 06/10/24 12:00 06/10/24 12:00 06/10/24 12:00 06/10/24 12:00 06/10/24 12:00 06/10/24 12:00 Narrative Exam PE: Gen: Well-developed and well-nourished. Calm. HEENT: NCAT, PERRLA, EOMI, MMM, anicteric conjunctivae. CVS: normal S1 and S2. RRR. No M/R/G. Resp: CTA B/L. No rhonchi, rales, crackles or wheezing. Abd: soft, non-tender, non-distended. BS+ in all 4 quadrants. MSK: Good ROM in BUE & BLE. Diffuse bruises, various stages of healing. Right lower extremity swollen. Left hand edematous, tender, erythematous, stable. Erythema spread on the dorsal forearm to elbow. Left hand sensation and pulse intact. Neuro: CN II-XII grossly intact. Strength 5/5 in BUE & BLE. Alert and oriented x3. Psych: appropriate mood and affect. Objective Labs 06/11/24 05:20 06/11/24 05:20 Labs: Laboratory Results - last 24 hr 06/10/24 05:27 WBC 11.0 H D RBC 2.39 L Hgb 8.2 L Hct 23.1 L MCV 97 MCH 34.3 MCHC 35.5 RDW Std Deviation 48.5 H Plt Count 35 L D Neut % (Auto) 78 Lymph % (Auto) 12 [place] % (Auto) 6 Eos % (Auto) 0 Baso % (Auto) 1 Neut # (Auto) 8.6 H Lymph # (Auto) 1.4 [place] # (Auto) 0.7 Eos # (Auto) 0.0 Baso # (Auto) 0.1 Immature Gran # (Auto) 0.30 H Absolute Nucleated RBC 0.00 Immature Gran % 3 H Nucleated RBC % 0 Sodium 139 Potassium 2.4 L* Chloride 108 H Carbon Dioxide 20.5 Anion Gap 11 BUN 7 L Creatinine 0.6 Estim Creat Clear Calc 111.2 eGFR > 60 BUN/Creatinine Ratio 12 Glucose 109 H Calculated Osmolality 276 Calcium 7.8 L Corrected Calcium 8.7 Phosphorus 1.9 L Magnesium 1.6 Total Bilirubin 0.4 AST 20 ALT 17 Alkaline Phosphatase 66 D Total Creatine Kinase 28 L Total Protein 5.0 L Albumin 2.9 L Globulin 2.1 L Albumin/Globulin Ratio 1.4 Misc Test Result Platelets confirmed Quality Measures Quality Measures VTE prophylaxis Advance care planning discussed with:: patient and child Assessment & Plan Assessment Current Active Medications: Generic Name Dose Route Start Last Admin Trade Name Freq PRN Reason Stop Dose Admin Acetaminophen 650 mg 06/07/24 00:31 Acetaminophen 325 Mg Tablet PO 07/07/24 00:30 Q6H PRN PAIN SCALE 1-3 (mild Acetaminophen 650 mg 06/08/24 11:06 Acetaminophen 325 Mg Tablet PO 07/07/24 00:30 Q6H PRN Fever >100.4 Hydrocodone Bitart/Acetaminophen 1 tab 06/07/24 00:31 06/07/24 09:57 Hydrocodone/Apap 5/325 Tablet PO 06/12/24 00:30 1 tab Q4HR PRN Administration PAIN SCALE 4-6 (Moderate Calcium Carbonate 600 mg 06/07/24 00:30 06/10/24 08:03 Calcium Carbonate 600 Mg Tablet PO 07/07/24 00:29 600 mg QDAY JORDYN Administration Cefepime HCl 2 gm/ Sodium 50 mls @ 100 mls/hr 06/07/24 14:00 06/10/24 13:33 Chloride IV 06/14/24 13:59 100 mls/hr Q8HR JORDYN Administration Metronidazole 500 mg in 100 mls @ 200 mls/hr 06/07/24 14:00 06/10/24 13:33 Flagyl 500 Mg Iv IV 06/14/24 05:59 200 mls/hr Q8HR JORDYN Administration Vancomycin HCl/Dextrose 250 mls @ 120 mls/hr 06/09/24 11:15 06/10/24 10:35 Vancomycin/D5w 1,250 Mg Ivpb IV 06/16/24 11:14 120 mls/hr BID@1000,2200 JORDYN Administration Protocol Lisinopril 10 mg 06/11/24 09:00 Lisinopril 2.5 Mg Tablet PO 07/11/24 08:59 DAILY JORDYN Megestrol Acetate 400 mg 06/10/24 09:00 06/10/24 09:14 Megestrol Acet Susp 400 Mg/10 Ml Udc PO 07/10/24 08:59 400 mg DAILY JORDYN Administration Pharmacy Consult 1 each 06/07/24 09:00 Vancomycin Pharmacy To Dose 1 Each Each IV 07/07/24 08:59 QDAY PRN PROTOCOL Potassium Phos/Sodium Phos 1 packet 06/10/24 21:00 [facility] 1 Packet (1.5 Gm) PO 07/10/24 20:59 BID JORDYN Tamsulosin HCl 0.8 mg 06/10/24 09:00 06/10/24 08:03 Tamsulosin Hcl 0.4 Mg Capsule PO 07/10/24 08:59 0.8 mg DAILY JORDYN Administration Plan 78-year-old male with significant past medical history of hypertension, stage IV prostate cancer, currently on chemotherapy with last chemotherapy 8 days ago was brought in by family for fever, redness to the left hand and generalized body weakness. The patient was admitted to telemetry unit for further management of neutropenic fever. #Neutropenic fever #Sepsis 2/2 #Left hand cellulitis #GNR bacteremia Secondary to chemotherapy that was done 8 days ago for stage IV prostate cancer. Meet SIRS criteria 2/4 with pulse rate 124 and white count 0.5 with left hand cellulitis, and hematopoietic failure were with neutropenia. Pro-Lito 18.24. Received 4 L of IV NS bolus. Received IV vancomycin and Zosyn in the ED. Switched Zosyn to cefepime and Flagyl. Blood cultures 2/[address] head showed soft tissue swelling with air densities, ulnar styloid tip fracture. Swelling of left hand progressively worse, newly noted black discoloration around puncture wound. Patient reexamined, left hand swelling and discoloration stable compared to yesterday. MRI showed significant soft tissue swelling without abscess or osteomyelitis. Transfer nurse consulted with hand surgeon specialist who recommended continued treatment with general surgery and IV antibiotics at [facility]. Urine culture negative. Blood cultures grew pansensitive E. coli. Patient received Neupogen 40 mg subcu x 2 days. ANC significantly improved to 3.7. Based on significant improvement, orthopedics does not recommend pursuing transfer further at this time. Continue medical management, will reeval tomorrow for potential debridement. -Vancomycin pharmacy dosing (started 06/06) -Cefepime 2 g IV every 8 hours (started 06/07) -Flagyl 500 mg IV every 8 hours (started 06/07) -Tylenol 650 Mg every 6 hourly as needed for fever, along with cooling measures -Ordered neutropenic isolation -Orthopedics consulted for left hand, recommendations appreciated #Thrombocytopenia Secondary to chemotherapy 8 days ago Platelet count of 43, down to 25 -Hold heparin -Continue to monitor daily a.m. labs for platelets #Mild hypoosmolar hypovolemic hyponatremia, asymptomatic Likely secondary to poor oral intake -Received 4 L IV normal saline bolus -Daily a.m. labs for sodium level #Hypocalcemia #Hypomagnesemia Presented with calcium 8.0 and magnesium 1.4. Repleted magnesium with 4 g IV magnesium sulfate -Started on calcium carbonate 600 Mg daily -Monitor daily a.m. labs for calcium and magnesium #Primary hypertension Currently blood pressure soft -Monitor blood pressure closely #Stage IV prostate cancer Patient is on chemotherapy, last administered 8 days ago -Outpatient follow-up with oncologist -Consult patient's oncologist to potentially resume patient's chemotherapy meds and patient. Diet: Regular DVT prophylaxis: SCDs CODE STATUS: Full code Lines: PIV Plan of care discussed with senior resident Dr. Taylor PGY?[address] Fox PGY?3, and attending Dr. Villatoro. Kelvin Langley MD PGY?1 Attending Provider Attestation/Addendum I have examined the patient, reviewed labs and imaging findings, discussed the case with the resident(s), and reviewed entered orders. I agree with the plan of care as outlined in this note, with these additional summaries/recommendations: #Neutropenic fever # Pancytopenia- 2/2 chemotherapy # Metastatic prostate cancer Tmax 103.0 Fahrenheit, last chemotherapy 8 days prior, does not appear to have received prior prophylactic antibiotics, per oncologist did receive Neupogen 8 days prior with chemotherapy. Systolic heart function unknown. Localizing sources: Cellulitis and bacteremia No need for acyclovir at this time as no evidence of vesicular lesions. No need for fluconazole as no evidence of oral or other lesions suggestive candidiasis. Neutropenic precautions Follow-up blood and urine cultures Continue IV vancomycin, IV cefepime, and IV metronidazole Plan: Case discussed with patient's oncologist who is okay with additional Neupogen given the severity of patient's hand cellulitis/neutrophilia. Continue IV antibiotics. We will continue Neupogen until ANC greater than 500. Discharge criteria for neutropenic fever is negative blood cultures, afebrile for greater than 24 hours and ANC greater than 500. Daily hematology panel # Left hand cellulitis # Bacteremia Cellulitis secondary to puncture wound from shala wire 3 days ago. Symptoms have progressively worsened per patient. CT of hand revealed Soft tissue defect, soft tissue swelling and air densities between the first and second metacarpals. Continue IV antibiotics. Blood cultures showed GNR 2 out of 2 and will follow- up speciation. Orthopedics consulted who recommends MRI and improvement in WBC count before any surgical intervention can be undertaken if needed. As of now patient is able to move his fingers and sensation is intact although he is not fully able to make a fist at this time. Patient was evaluated by emergency room provider. Patient has had development of hemorrhagic blister bullae although this may be more related to patient's underlying thrombocytopenia. Patient's bullae and puncture wound were expressed with return of only serosanguineous fluid. No foul smell to indicate necrotizing infection. Also air tract seen on CT likely more related to the puncture wound. Nonetheless we will continue aggressive IV antibiotics and monitor for changes. Patient updated on the plan and in agreement. 06/08/24: Patient seen at bedside. No acute overnight events. Patient is now afebrile and we will monitor closely for return of fevers. Continue broad spectrum abx and awaiting speciation of blood cxs. Patient was attempted to transfer for hand surgery although was not accepted. Patient reports improvement in swelling in his hand. Sensation is intact throughout and has good capillary refill. Cellulitis did spread proximally into mid forearm. Hand MRI showed diffuse cellulitis with severe edema with no evidence of abscess or osteomyelitis. Orthopedics following closely. We will proceed with additional dose of neupogen today for neutropenia/leukopenia which is slightly improved compared to yesterday. Patient updated on the plan and in agreement. 06/09/24: Patient seen at bedside. No acute overnight events. Today patient reports improvement in the swelling of his hand although feels slightly more painful secondary to blood pressure just being taken. DC blood pressure readings on left arm. Patient's cellulitis spread slightly more proximally in to patient's mid forearm but overall less warmth to touch and swelling. Sensation still intact, capillary refill <3 seconds, and patient able to move fingers freely although not able to make complete fist. Borders now marked and we will monitor to see if spreads further. Patient was not accepted for transfer by multiple facilities and currently placed on hold. Orthopedics consulted and recommendations appreciated. Blood cultures grew E. coli and patient on broad-spectrum antibiotics. Now afebrile for over 36 hours and we will continue to monitor. Patient's neutrophil count now back in normal range. No further Neupogen needed at this time. Patient has now developed persistent hypokalemia and we will aggressively replete today. Hypophosphatemia present and replacement given. Will follow-up with patient's oncologist today. Patient's daughter updated at bedside. Repeat hematology and chemistry panel in AM. 06/10/24: Patient seen at bedside. No acute overnight events. Patient's left hand cellulitis appears relatively unchanged from previous day. Sensation still intact throughout. Capillary refill less than 3 seconds, and patient able to move his fingers. Will follow-up orthopedic recommendations. Continue wound care. Patient has now remained afebrile for over 48 hours and neutropenia has resolved. Patient now has leukocytosis. We will continue broad-spectrum antibiotics now given the severity of patient's infection. Patient's oncologist was contacted again who is in agreement with no further Neupogen and continue to hold abiraterone. Thrombocytopenia stable platelets 35 today. Patient has persistent hypokalemia and hypophosphatemia most likely secondary to poor oral intake. Patient endorses dysphagia and difficulty chewing. We will refer to speech therapy and change diet to dysphagia for now. Ensure supplements added. Patient daughter updated at bedside. All questions answered to satisfaction. Repeat hematology and chemistry panel in AM. Dr. Irving MD
[2024-06-10 15:08] LABS: Anion Gap 11 (7-16); BUN/Creatinine Ratio 12 Ratio (12-20); Blood Urea Nitrogen 7 mg/dL (9-23); Calcium 8.1 mg/dL (8.3-10.6); Carbon Dioxide 20.8 mMol/L (20.0-31.0); Chloride 108 mMol/L (98-107); Creatinine (Component) 0.6 mg/dL (0.6-1.3); Estimated Creatinine Clearance 111.2 mL/min (>60); Glucose 146 mg/dL (74-106); Osmolality,Calculated 280 (275-295); Potassium 2.8 mMol/L (3.4-5.1); Sodium 140 mMol/L (136-145); eGFR > 60 See Note
--- NOTE | 2024-06-10 15:18 | PC.SS ---
EVAPORATIVE COOLER INSTALLER conducted bedside contact with the patient conduct initial assessment and to discuss discharge planning.? EVAPORATIVE COOLER INSTALLER utilized translation services to assist with discussion.? Patient confirmed demographic information.? Patient resides at home with friends.? Patient reports that he does not utilize DME to assist with ambulation.? Patient does not use home oxygen.? Patient describes the ability to complete ADL?s independently.? Patient identified daughter, Naomi Zamudio ; as medical surrogate decision maker. ?Patient?s PCP is Yuniel Bhakta.? Patient possesses a history of stage IV prostate cancer. Patient is currently undergoing chemotherapy in [place].? Patient?s family provides transportation on behalf of the patient.? Patient utilizes [facility] for medication services.? Plan is for the patient to return home at the time of discharge.? Family will provide transportation on behalf of the patient. ?No discharge needs identified by the patient.? No further intervention required at this time, director of social services will be available to address any further concerns.? Next of Kin: Naomi Zamudio D/C Plan: Home
--- NOTE | 2024-06-10 15:57 | PC.SS ---
Rounding Note: Dr. Simms is consulting on case. Transfer is on hold.
[2024-06-11] VITALS (8 sets, daily range): BP systolic 111–155; BP diastolic 62–92; PULSE 88–110; RESP 16–97; TEMP 36.2–36.6; O2SAT 95–98; BMI 28.4
[2024-06-11] MEDS: CEFEPIME INJ 2 GM in SODIUM CHLORIDE 0.9% (Popper) 50 ML IV ×3 (05:07→21:50)
[2024-06-11] MEDS: metroNIDAZOLE/NS 500 MG IVPB 500 MG/100 ML BAG 200 MG IV ×3 (05:07→21:37)
[2024-06-11 05:52] LABS: Basophils % (Auto) 0 % (0-2.5); Eosinophils % (Auto) 0 % (0-10); Hematocrit 21.2 % (41.0-53.0); Immature Granulocytes % (Auto) 2 % (0-0); Immature Granulocytes Auto 0.16 Thou/mm3 (0.00-0.00); Lymphocytes # (Auto) 1.6 Thou/mm3 (1.0-4.8); Lymphocytes % (Auto) 15 % (10-50); Mean Corpuscular HGB Conc 34.9 g/dl (31.0-37.0); Mean Corpuscular Hemoglobin 33.6 pg (25.0-35.0); Mean Corpuscular Volume 96 fL (80-100); Monocytes # (Auto) 0.8 Thou/mm3 (0.0-0.8); Monocytes % (Auto) 8 % (0-12); Neutrophils # (Auto) 7.6 Thou/mm3 (1.8-7.7); Neutrophils % (Auto) 75 % (37-80); Nucleated Red Blood Cell # 0.02 Thou/mm3 (0.00-0.00); Nucleated Red Blood Cell % 0 /100 WBC (0); RDW Standard Deviation 48.1 fL (35.1-43.9); White Blood Count 10.1 Thou/mm3 (3.8-10.6)
[2024-06-11 06:13] LABS: Hemoglobin 7.4 g/dL (13.5-16.0); Platelet Count 50 Thou/mm3 (140-440)
[2024-06-11 06:37] LABS: Alanine Aminotransferase 10 U/L (10-49); Albumin, Serum 2.5 gm/dL (3.4-4.8); Alkaline Phosphatase 60 U/L (46-116); Anion Gap 7 (7-16); Aspartate Amino Transferase 11 U/L (0-34); BUN/Creatinine Ratio 9 Ratio (12-20); Bilirubin,Total 0.3 mg/dL (0.3-1.2); Blood Urea Nitrogen 6 mg/dL (9-23); Calcium (Corrected) 7.9 mg/dL (8.5-10.1); Carbon Dioxide 20.9 mMol/L (20.0-31.0); Chloride 112 mMol/L (98-107); Creatinine (Component) 0.7 mg/dL (0.6-1.3); Estimated Creatinine Clearance 95.3 mL/min (>60); Globulin 2.5 gm/dL (2.3-3.5); Glucose 94 mg/dL (74-106); Magnesium 1.5 mg/dL (1.6-2.6); Osmolality,Calculated 277 (275-295); Phosphorous 3.2 mg/dL (2.4-5.1); Sodium 140 mMol/L (136-145); eGFR > 60 See Note
[2024-06-11 06:44] LABS: Calcium 6.7 mg/dL (8.3-10.6)
[2024-06-11] MEDS: NAPH,KPH MBDB 1 PACKET (1.5 GM) PO ×2 (08:56→21:38)
[2024-06-11] MEDS: MEGESTROL ACET SUSP 400 MG/10 ML UDC PO (08:57)
[2024-06-11] MEDS: TAMSULOSIN HCL 0.4 MG CAPSULE 0.8 MG PO (08:57)
[2024-06-11] MEDS: CALCIUM CARBONATE 600 MG TABLET PO (08:57)
[2024-06-11] MEDS: Lisinopril 2.5 MG TABLET 10 MG PO (08:57)
[2024-06-11] MEDS: Magnesium Sulfate 4 GM Ivpb 4 GM/50 ML BAG IV (09:37)
[2024-06-11 09:59] LABS: Vancomycin,Trough 16.5 mcg/mL (5.0-10.0)
[2024-06-11] MEDS: Calcium Chloride 10% Inj 10 ML in SODIUM CHLORIDE 0.9% 100 ML 110 ML IV (10:02)
[2024-06-11] MEDS: POTASSIUM CHL 10 mEq IVPB 10 MEQ/100 ML BAG 100 MEQ IV ×4 (10:02→13:46)
[2024-06-11] MEDS: POTASSIUM CHLORIDE 10% 20 MEQ/15 ML UDC PO (10:31)
[2024-06-11 10:48] LABS: Slide Review Platelets confirmed
[2024-06-11] MEDS: VANCOMYCIN/D5W 1,250 MG IVPB 250 ML 120 MG IV ×2 (11:11→21:50)
--- NOTE | 2024-06-11 13:36 | ESPR_ITS ---
<Statement entered by Sharon Taylor MD - 06/11/24 15:29> 78-year-old male with significant past medical history of hypertension, stage IV prostate cancer, currently on chemotherapy with last chemotherapy 8 days ago was brought in by family for fever, redness to the left hand and generalized body weakness and admitted for neutropenic fever and left hand cellulitis requiring IV Abx. Patient seen and examined at bedside. No acute overnight events reported. Patient is on IV Vanc, Cefepime, and Flagyl. Patient continues to experience 1-2 watery stools daily and labs significant for hypokalemia, hypocalcemia, and hypomagnesemia. Patient's last chemotherapy session was 8 days ago from admission date, 06/07/24. Orthopedics was consulted and will re-evaluate today for possible surgical intervention. I discussed with and supervised the business analyst intern physician who took care of this patient. I personally saw and examined the patient and discussed the assessment and plan with the entire medicine team, including my attending Dr. Villatoro, I agree with most of the assessment and plan as documented below Sharon Taylor M.D. PGY-2 <Statement entered by Jesi Fox MD - 06/11/24 15:03> I discussed with and supervised the business analyst intern physician who took care of this patient. I personally saw and examined the patient and discussed the assessment and plan with the entire medicine team, including my attending Dr. Villatoro, I agree with the assessment and plan as documented below Patient seen and examined at bedside today. Labs and imaging reviewed. No overnight acute events This morning at the bedside, patient is AO x 3, respond to question properly, appetite has improved he stated that he ate all his breakfast. Labs were significant for hemoglobin 10.4, WBCs 10.1, neutropenia resolved patient remains afebrile, he stated that he feels better otherwise that he feels his hand is heavy and swollen, denied any pain, chills, paresthesias or any other associated symptom. Pending orthopedic surgery recommendations for possible surgical debridement. Will continue broad-spectrum antibiotics IV vancomycin, Flagyl and cefepime. Jesi Fox MD PGY-3 Disclaimer: Despite multiple revisions, due to the dictation software being used, the document bellow may not be free of grammatical errors including phonetic/typographic errors. However, this does not deter from our commitment to providing health care in the patient's best interest in mind. Documentation for date of: 06/11/24 Subjective Subjective Interval history: No overnight events. Patient seen examined at bedside, resting comfortably. Patient says his hand feels swollen, but nonpainful, unable to make fist but able to flex fingers. Patient denies fevers, chills, shortness of breath, chest pain, abdominal pain. Endorses easier time eating on pur?ed diet. Continues to have electrolyte abnormalities, will continue to monitor closely and replete as needed. Follow-up surgery consult for potential debridement. Exam Vital Signs Temp Pulse Resp BP Pulse Ox O2 Del Method 97.7 F 106 H 16 138/71 H 96 Room Air 06/11/24 12:00 06/11/24 12:00 06/11/24 12:00 06/11/24 12:00 06/11/24 12:06/11/24 12:00 Narrative Exam PE: Gen: Well-developed and well-nourished. Calm. HEENT: NCAT, PERRLA, EOMI, MMM, anicteric conjunctivae. CVS: normal S1 and S2. RRR. No M/R/G. Resp: CTA B/L. No rhonchi, rales, crackles or wheezing. Abd: soft, non-tender, non-distended. BS+ in all 4 quadrants. MSK: Good ROM in BUE & BLE. Diffuse bruises, various stages of healing. Right lower extremity swollen. Left hand edematous, tender, erythematous, stable. Erythema spread on the dorsal forearm, spreading past the elbow. Left hand sensation and pulse intact. Neuro: CN II-XII grossly intact. Strength 5/5 in BUE & BLE. Alert and oriented x3. Psych: appropriate mood and affect. Objective Labs 06/11/24 05:20 06/11/24 05:20 Labs: Laboratory Results - last 24 hr 06/10/24 06/11/24 06/11/24 13:58 05:20 08:35 WBC 10.1 RBC 2.20 L Hgb 7.4 L Hct 21.2 L* MCV 96 MCH 33.6 MCHC 34.9 RDW Std Deviation 48.1 H Plt Count 50 L D Neut % (Auto) 75 Lymph % (Auto) 15 Barron % (Auto) 8 Eos % (Auto) 0 Baso % (Auto) 0 Neut # (Auto) 7.6 Lymph # (Auto) 1.6 Barron # (Auto) 0.8 Eos # (Auto) 0.0 Baso # (Auto) 0.0 Immature Gran # (Auto) 0.16 H Absolute Nucleated RBC 0.02 H Immature Gran % 2 H Nucleated RBC % 0 Sodium 140 140 Potassium 2.8 L 2.0 L* D Chloride 108 H 112 H Carbon Dioxide 20.8 20.9 Anion Gap 11 7 BUN 7 L 6 L Creatinine 0.6 0.7 Estim Creat Clear Calc 111.2 95.3 eGFR > 60 > 60 BUN/Creatinine Ratio 12 9 L Glucose 146 H 94 D Calculated Osmolality 280 277 Calcium 8.1 L 6.7 L* Corrected Calcium 7.9 L Phosphorus 3.2 Magnesium 1.5 L Total Bilirubin 0.3 AST 11 ALT 10 Alkaline Phosphatase 60 Total Protein 5.0 L Albumin 2.5 L Globulin 2.5 Albumin/Globulin Ratio 1.0 L Vancomycin Trough 16.5 H Misc Test Result Platelets confirmed Quality Measures Quality Measures VTE prophylaxis Advance care planning discussed with:: patient and child Assessment & Plan Assessment Current Active Medications: Generic Name Dose Route Start Last Admin Trade Name Freq PRN Reason Stop Dose Admin Acetaminophen 650 mg 06/07/24 00:31 Acetaminophen 325 Mg Tablet PO 07/07/24 00:30 Q6H PRN PAIN SCALE 1-3 (mild Acetaminophen 650 mg 06/08/24 11:06 Acetaminophen 325 Mg Tablet PO 07/07/24 00:30 Q6H PRN Fever >100.4 Hydrocodone Bitart/Acetaminophen 1 tab 06/07/24 00:31 06/07/24 09:57 Hydrocodone/Apap 5/325 Tablet PO 06/12/24 00:30 1 tab Q4HR PRN Administration PAIN SCALE 4-6 (Moderate Calcium Carbonate 600 mg 06/07/24 00:30 06/11/24 08:57 Calcium Carbonate 600 Mg Tablet PO 07/07/24 00:29 600 mg QDAY JORDYN Administration Cefepime HCl 2 gm/ Sodium 50 mls @ 100 mls/hr 06/07/24 14:00 06/11/24 13:27 Chloride IV 06/14/24 13:59 100 mls/hr Q8HR JORDYN Administration Metronidazole 500 mg in 100 mls @ 200 mls/hr 06/07/24 14:00 06/11/24 13:26 Flagyl 500 Mg Iv IV 06/14/24 05:59 200 mls/hr Q8HR JORDYN Administration Vancomycin HCl/Dextrose 250 mls @ 120 mls/hr 06/09/24 11:15 06/11/24 11:11 Vancomycin/D5w 1,250 Mg Ivpb IV 06/16/24 11:14 120 mls/hr BID@1000,2200 JORDYN Administration Protocol Potassium Chloride 10 meq in 100 mls @ 100 mls/hr 06/11/24 11:00 06/11/24 12:29 Kcl Ivpb IV 06/11/24 14:59 100 mls/hr Q1H JORDYN Administration Lisinopril 10 mg 06/11/24 09:00 06/11/24 08:57 Lisinopril 2.5 Mg Tablet PO 07/11/24 08:59 10 mg DAILY JORDYN Administration Megestrol Acetate 400 mg 06/10/24 09:00 06/11/24 08:57 Megestrol Acet Susp 400 Mg/10 Ml Udc PO 07/10/24 08:59 400 mg DAILY JORDYN Administration Pharmacy Consult 1 each 06/07/24 09:00 Vancomycin Pharmacy To Dose 1 Each Each IV 07/07/24 08:59 QDAY PRN PROTOCOL Potassium Phos/Sodium Phos 1 packet 06/10/24 21:00 06/11/24 08:56 [facility] 1 Packet (1.5 Gm) PO 07/10/24 20:59 1 packet BID JORDYN Administration Tamsulosin HCl 0.8 mg 06/10/24 09:00 06/11/24 08:57 Tamsulosin Hcl 0.4 Mg Capsule PO 07/10/24 08:59 0.8 mg DAILY JORDYN Administration Plan 78-year-old male with significant past medical history of hypertension, stage IV prostate cancer, currently on chemotherapy with last chemotherapy 8 days ago was brought in by family for fever, redness to the left hand and generalized body weakness. The patient was admitted to telemetry unit for further management of neutropenic fever. #Neutropenic fever #Sepsis 2/2 #Left hand cellulitis #GNR bacteremia Secondary to chemotherapy that was done 8 days ago for stage IV prostate cancer. Meet SIRS criteria 2/4 with pulse rate 124 and white count 0.5 with left hand cellulitis, and hematopoietic failure were with neutropenia. Pro-Lito 18.24. Received 4 L of IV NS bolus. Received IV vancomycin and Zosyn in the ED. Switched Zosyn to cefepime and Flagyl. Blood cultures 2/[address] head showed soft tissue swelling with air densities, ulnar styloid tip fracture. Swelling of left hand progressively worse, newly noted black discoloration around puncture wound. Patient reexamined, left hand swelling and discoloration stable compared to yesterday. MRI showed significant soft tissue swelling without abscess or osteomyelitis. Transfer nurse consulted with hand surgeon specialist who recommended continued treatment with general surgery and IV antibiotics at [facility]. Urine culture negative. Blood cultures grew pansensitive E. coli. Patient received Neupogen 480 mg subcu x 2 days. ANC significantly improved to 3.7. Based on significant improvement, orthopedics does not recommend pursuing transfer further at this time. Orthopedics to reevaluate for potential debridement, will follow-up. Patient does not show any symptomatic worsening, swelling and discoloration of hand is stable, however erythema is spreading up arm past the elbow. Potential polymicrobial infection. -Vancomycin pharmacy dosing (started 06/06) -Cefepime 2 g IV every 8 hours (started 06/07) -Flagyl 500 mg IV every 8 hours (started 06/07) -Tylenol 650 Mg every 6 hourly as needed for fever, along with cooling measures -Ordered neutropenic isolation -Orthopedics consulted for left hand, recommendations appreciated #Hypocalcemia #Hypomagnesemia #Hypokalemia Patient has had significant electrolyte abnormalities refractory to treatment throughout course of stay. Likely multifactorial, due to poor absorption secondary to chemotherapy, high cell turnover due to Neupogen, refeeding syndrome. Patient is required IV magnesium, IV and p.o. potassium multiple times, remains low. -Started on calcium carbonate 600 Mg daily -Monitor daily a.m. labs, replete as necessary -Encouraged dietary intake #Thrombocytopenia Secondary to chemotherapy 8 days ago Platelet count of 43, down to 25 -Hold heparin -Continue to monitor daily a.m. labs for platelets #Mild hypoosmolar hypovolemic hyponatremia, asymptomatic Likely secondary to poor oral intake -Received 4 L IV normal saline bolus -Daily a.m. labs for sodium level #Primary hypertension Currently blood pressure soft -Monitor blood pressure closely #Stage IV prostate cancer Patient is on chemotherapy, last administered 8 days ago -Outpatient follow-up with oncologist -Consult patient's oncologist to potentially resume patient's chemotherapy meds and patient. Diet: Regular, pur?ed DVT prophylaxis: SCDs CODE STATUS: Full code Lines: PIV Plan of care discussed with senior resident Dr. Taylor PGY?[address] Fox PGY?3, and attending Dr. Villatoro. Kelvin Langley MD PGY?1 Attending Provider Attestation/Addendum I have examined the patient, reviewed labs and imaging findings, discussed the case with the resident(s), and reviewed entered orders. I agree with the plan of care as outlined in this note, with these additional summaries/recommendations: #Neutropenic fever # Pancytopenia- 2/2 chemotherapy # Metastatic prostate cancer Tmax 103.0 Fahrenheit, last chemotherapy 8 days prior, does not appear to have received prior prophylactic antibiotics, per oncologist did receive Neupogen 8 days prior with chemotherapy. Systolic heart function unknown. Localizing sources: Cellulitis and bacteremia No need for acyclovir at this time as no evidence of vesicular lesions. No need for fluconazole as no evidence of oral or other lesions suggestive candidiasis. Neutropenic precautions Follow-up blood and urine cultures Continue IV vancomycin, IV cefepime, and IV metronidazole Plan: Case discussed with patient's oncologist who is okay with additional Neupogen given the severity of patient's hand cellulitis/neutrophilia. Continue IV antibiotics. We will continue Neupogen until ANC greater than 500. Discharge criteria for neutropenic fever is negative blood cultures, afebrile for greater than 24 hours and ANC greater than 500. Daily hematology panel # Left hand cellulitis # Bacteremia Cellulitis secondary to puncture wound from shala wire 3 days ago. Symptoms have progressively worsened per patient. CT of hand revealed Soft tissue defect, soft tissue swelling and air densities between the first and second metacarpals. Continue IV antibiotics. Blood cultures showed GNR 2 out of 2 and will follow- up speciation. Orthopedics consulted who recommends MRI and improvement in WBC count before any surgical intervention can be undertaken if needed. As of now patient is able to move his fingers and sensation is intact although he is not fully able to make a fist at this time. Patient was evaluated by emergency room provider. Patient has had development of hemorrhagic blister bullae although this may be more related to patient's underlying thrombocytopenia. Patient's bullae and puncture wound were expressed with return of only serosanguineous fluid. No foul smell to indicate necrotizing infection. Also air tract seen on CT likely more related to the puncture wound. Nonetheless we will continue aggressive IV antibiotics and monitor for changes. Patient updated on the plan and in agreement. 06/08/24: Patient seen at bedside. No acute overnight events. Patient is now afebrile and we will monitor closely for return of fevers. Continue broad spectrum abx and awaiting speciation of blood cxs. Patient was attempted to transfer for hand surgery although was not accepted. Patient reports improvement in swelling in his hand. Sensation is intact throughout and has good capillary refill. Cellulitis did spread proximally into mid forearm. Hand MRI showed diffuse cellulitis with severe edema with no evidence of abscess or osteomyelitis. Orthopedics following closely. We will proceed with additional dose of neupogen today for neutropenia/leukopenia which is slightly improved compared to yesterday. Patient updated on the plan and in agreement. 06/09/24: Patient seen at bedside. No acute overnight events. Today patient reports improvement in the swelling of his hand although feels slightly more painful secondary to blood pressure just being taken. DC blood pressure readings on left arm. Patient's cellulitis spread slightly more proximally in to patient's mid forearm but overall less warmth to touch and swelling. Sensation still intact, capillary refill <3 seconds, and patient able to move fingers freely although not able to make complete fist. Borders now marked and we will monitor to see if spreads further. Patient was not accepted for transfer by multiple facilities and currently placed on hold. Orthopedics consulted and recommendations appreciated. Blood cultures grew E. coli and patient on broad-spectrum antibiotics. Now afebrile for over 36 hours and we will continue to monitor. Patient's neutrophil count now back in normal range. No further Neupogen needed at this time. Patient has now developed persistent hypokalemia and we will aggressively replete today. Hypophosphatemia present and replacement given. Will follow-up with patient's oncologist today. Patient's daughter updated at bedside. Repeat hematology and chemistry panel in AM. 06/10/24: Patient seen at bedside. No acute overnight events. Patient's left hand cellulitis appears relatively unchanged from previous day. Sensation still intact throughout. Capillary refill less than 3 seconds, and patient able to move his fingers. Will follow-up orthopedic recommendations. Continue wound care. Patient has now remained afebrile for over 48 hours and neutropenia has resolved. Patient now has leukocytosis. We will continue broad-spectrum antibiotics now given the severity of patient's infection. Patient's oncologist was contacted again who is in agreement with no further Neupogen and continue to hold abiraterone. Thrombocytopenia stable platelets 35 today. Patient has persistent hypokalemia and hypophosphatemia most likely secondary to poor oral intake. Patient endorses dysphagia and difficulty chewing. We will refer to speech therapy and change diet to dysphagia for now. Ensure supplements added. Patient daughter updated at bedside. All questions answered to satisfaction. Repeat hematology and chemistry panel in AM. 06/11/24: Patient seen at bedside. No acute overnight events. Patient continues to remain afebrile. Neutropenia now resolved. We are working closely with patient's oncologist and no further need for Neupogen as neutropenia has resolved. oncology recommends to continue to hold home abiraterone. Patient's left hand cellulitis relatively unchanged. Rash is less warm to touch, minor improvement in swelling, although erythema has spread slightly more proximally to upper arm. Orthopedics following closely with possible plans of surgical intervention although rash is stable at this time. Bruising most likely secondary to thrombocytopenia. Patient continues to have intractable electrolyte deficiencies. This is most likely multifactorial secondary to high cell turnover and poor oral intake. We will continue to aggressively replete electrolytes and ensure started. Patient reports his pain is controlled. Continue all other home medications. Repeat hematology and chemistry panel in AM. Dr. Irving MD
[2024-06-11 16:01] LABS: Alanine Aminotransferase 13 U/L (10-49); Albumin, Serum 2.7 gm/dL (3.4-4.8); Albumin/Globulin Ratio 1.2 (1.2-2.2); Alkaline Phosphatase 79 U/L (46-116); Anion Gap 10 (7-16); Aspartate Amino Transferase 19 U/L (0-34); BUN/Creatinine Ratio 17 Ratio (12-20); Bilirubin,Total 0.2 mg/dL (0.3-1.2); Blood Urea Nitrogen 10 mg/dL (9-23); Calcium 8.4 mg/dL (8.3-10.6); Calcium (Corrected) 9.4 mg/dL (8.5-10.1); Chloride 106 mMol/L (98-107); Creatinine (Component) 0.6 mg/dL (0.6-1.3); Estimated Creatinine Clearance 111.2 mL/min (>60); Globulin 2.3 gm/dL (2.3-3.5); Glucose 148 mg/dL (74-106); Osmolality,Calculated 281 (275-295); Potassium 2.9 mMol/L (3.4-5.1); Sodium 140 mMol/L (136-145); eGFR > 60 See Note
--- NOTE | 2024-06-11 16:07 | PC.SS ---
Rounding Note: Plan is for family to discuss with patient continuing chemotherapy. If decision made to cease treatment, discuss hospice.
[2024-06-11] MEDS: POTASSIUM CHL 10 mEq IVPB 10 MEQ/100 ML BAG 75 MEQ IV ×3 (18:29→22:04)
[2024-06-12] VITALS (9 sets, daily range): BP systolic 110–189; BP diastolic 64–122; PULSE 56–115; RESP 2–29; TEMP 36.1–37.2; O2SAT 94–98; BMI 28.8
[2024-06-12] MEDS: POTASSIUM CHL 10 mEq IVPB 10 MEQ/100 ML BAG 75 MEQ IV (00:24)
[2024-06-12] MEDS: CEFEPIME INJ 2 GM in SODIUM CHLORIDE 0.9% (Popper) 50 ML IV ×3 (05:18→20:59)
[2024-06-12] MEDS: metroNIDAZOLE/NS 500 MG IVPB 500 MG/100 ML BAG 200 MG IV ×3 (05:19→21:04)
[2024-06-12 05:51] LABS: Basophils % (Auto) 0 % (0-2.5); Eosinophils % (Auto) 0 % (0-10); Hematocrit 23.5 % (41.0-53.0); Immature Granulocytes % (Auto) 2 % (0-0); Immature Granulocytes Auto 0.26 Thou/mm3 (0.00-0.00); Lymphocytes # (Auto) 1.9 Thou/mm3 (1.0-4.8); Lymphocytes % (Auto) 16 % (10-50); Mean Corpuscular HGB Conc 35.3 g/dl (31.0-37.0); Mean Corpuscular Hemoglobin 34.7 pg (25.0-35.0); Mean Corpuscular Volume 98 fL (80-100); Monocytes % (Auto) 9 % (0-12); Neutrophils # (Auto) 8.7 Thou/mm3 (1.8-7.7); Neutrophils % (Auto) 73 % (37-80); Nucleated Red Blood Cell % 0 /100 WBC (0); RDW Standard Deviation 49.1 fL (35.1-43.9); Red Blood Count 2.39 Miln/mm3 (4.50-5.90); White Blood Count 11.9 Thou/mm3 (3.8-10.6)
[2024-06-12 06:01] LABS: Hemoglobin 8.3 g/dL (13.5-16.0); Platelet Count 79 Thou/mm3 (140-440)
[2024-06-12 06:02] LABS: Slide Review Platelets confirmed
[2024-06-12 06:32] LABS: Alanine Aminotransferase 12 U/L (10-49); Albumin, Serum 2.8 gm/dL (3.4-4.8); Albumin/Globulin Ratio 1.2 (1.2-2.2); Alkaline Phosphatase 74 U/L (46-116); Anion Gap 9 (7-16); Aspartate Amino Transferase 18 U/L (0-34); BUN/Creatinine Ratio 13 Ratio (12-20); Bilirubin,Total 0.3 mg/dL (0.3-1.2); Blood Urea Nitrogen 8 mg/dL (9-23); Calcium 8.2 mg/dL (8.3-10.6); Calcium (Corrected) 9.2 mg/dL (8.5-10.1); Chloride 107 mMol/L (98-107); Creatinine (Component) 0.6 mg/dL (0.6-1.3); Estimated Creatinine Clearance 111.9 mL/min (>60); Globulin 2.4 gm/dL (2.3-3.5); Glucose 106 mg/dL (74-106); Magnesium 1.8 mg/dL (1.6-2.6); Osmolality,Calculated 279 (275-295); Sodium 141 mMol/L (136-145); Total Protein 5.2 gm/dL (5.7-8.2); eGFR > 60 See Note
[2024-06-12 06:38] LABS: Potassium 2.7 mMol/L (3.4-5.1)
[2024-06-12] MEDS: CALCIUM CARBONATE 600 MG TABLET PO (08:01)
[2024-06-12] MEDS: MEGESTROL ACET SUSP 400 MG/10 ML UDC PO (08:01)
[2024-06-12] MEDS: NAPH,KPH MBDB 1 PACKET (1.5 GM) PO ×2 (08:01→19:54)
[2024-06-12] MEDS: POTASSIUM CHLORIDE 10% 20 MEQ/15 ML UDC 40 MEQ PO (08:01)
[2024-06-12] MEDS: TAMSULOSIN HCL 0.4 MG CAPSULE 0.8 MG PO (08:02)
[2024-06-12] MEDS: Lisinopril 2.5 MG TABLET 10 MG PO (08:02)
[2024-06-12] MEDS: POTASSIUM CHL 10 mEq IVPB 10 MEQ/100 ML BAG 100 MEQ IV (08:06)
[2024-06-12] MEDS: POTASSIUM CHL 10 mEq IVPB 10 MEQ/100 ML BAG 80 MEQ IV ×3 (09:12→12:41)
[2024-06-12 10:07] LABS: Sed Rate (ESR) 77 mm/hr (0-20)
[2024-06-12] MEDS: VANCOMYCIN/WATER 1250 MG IVPB 250 ML 120 MG IV ×2 (10:12→21:04)
[2024-06-12 10:14] LABS: C-Reactive Protein 7.1 mg/dL (0.0-0.9)
--- NOTE | 2024-06-12 14:30 | ESPR_ITS ---
<Statement entered by Osmar Dyer MD - 06/13/24 11:26> I have discussed and was present for the essential components of the history, physical examination, diagnosis, and treatment plan with the resident. I agree with the patient's care as documented by the resident and amended herein by me. Osmar Dyer MD FACP. <Statement entered by Sharon Taylor MD - 06/12/24 16:22> I discussed with and supervised the leadership program internship physician who took care of this patient. I personally saw and examined the patient and discussed the assessment and plan with the entire medicine team, including my attending , I agree with most of the assessment and plan as documented below Sharon Taylor M.D. PGY-2 Documentation for date of: 06/12/24 Subjective Subjective Interval history: No overnight events. Patient seen and examined at bedside, complaining of left hand pain. States left hand feels more swollen than previous. Denies fever, chills, shortness of breath, nausea, vomiting. Peripheral pulses and sensation intact. Patient n.p.o., repeat x-rays ordered, will be seen by surgery for possible debridement tomorrow. Exam Vital Signs Temp Pulse Resp BP Pulse Ox O2 Del Method 97.3 F 90 22 H 110/64 97 Room Air 06/12/24 12:00 06/12/24 12:00 06/12/24 12:00 06/12/24 12:00 06/12/24 12:06/12/24 12:00 Narrative Exam PE: Gen: Well-developed and well-nourished. Calm. HEENT: NCAT, PERRLA, EOMI, MMM, anicteric conjunctivae. CVS: normal S1 and S2. RRR. No M/R/G. Resp: CTA B/L. No rhonchi, rales, crackles or wheezing. Abd: soft, non-tender, non-distended. BS+ in all 4 quadrants. MSK: Good ROM in BUE & BLE. Diffuse bruises, various stages of healing. Right lower extremity swollen. Left hand edematous, tender, erythematous, with newly noted sloughing of skin and purulence. Erythema spread on the dorsal forearm, spreading past the elbow. Left hand sensation and pulse intact. Neuro: CN II-XII grossly intact. Strength 5/5 in BUE & BLE. Alert and oriented x3. Psych: appropriate mood and affect. Objective Labs 06/12/24 04:42 06/12/24 04:42 Labs: Laboratory Results - last 24 hr 06/11/24 06/12/24 15:15 04:42 WBC 11.9 H RBC 2.39 L Hgb 8.3 L Hct 23.5 L MCV 98 MCH 34.7 MCHC 35.3 RDW Std Deviation 49.1 H Plt Count 79 L D Neut % (Auto) 73 Lymph % (Auto) 16 [place] % (Auto) 9 Eos % (Auto) 0 Baso % (Auto) 0 Neut # (Auto) 8.7 H Lymph # (Auto) 1.9 [place] # (Auto) 1.0 H Eos # (Auto) 0.0 Baso # (Auto) 0.0 Immature Gran # (Auto) 0.26 H Absolute Nucleated RBC 0.00 Immature Gran % 2 H Nucleated RBC % 0 ESR 77 H Sodium 140 141 Potassium 2.9 L D 2.7 L* Chloride 106 107 Carbon Dioxide 24.0 25.0 Anion Gap 10 9 BUN 10 8 L Creatinine 0.6 0.6 Estim Creat Clear Calc 111.2 111.9 eGFR > 60 > 60 BUN/Creatinine Ratio 17 13 Glucose 148 H D 106 Calculated Osmolality 281 279 Calcium 8.4 D 8.2 L Corrected Calcium 9.4 D 9.2 Phosphorus 2.0 L Magnesium 1.8 Total Bilirubin 0.2 L 0.3 AST 19 18 ALT 13 12 Alkaline Phosphatase 79 D 74 C-Reactive Prot, Quant 7.1 H Total Protein 5.0 L 5.2 L Albumin 2.7 L 2.8 L Globulin 2.3 2.4 Albumin/Globulin Ratio 1.2 1.2 Misc Test Result Platelets confirmed Quality Measures Quality Measures VTE prophylaxis Advance care planning discussed with:: patient Assessment & Plan Assessment Current Active Medications: Generic Name Dose Route Start Last Admin Trade Name Freq PRN Reason Stop Dose Admin Acetaminophen 650 mg 06/07/24 00:31 Acetaminophen 325 Mg Tablet PO 07/07/24 00:30 Q6H PRN PAIN SCALE 1-3 (mild Acetaminophen 650 mg 06/08/24 11:06 Acetaminophen 325 Mg Tablet PO 07/07/24 00:30 Q6H PRN Fever >100.4 Calcium Carbonate 600 mg 06/07/24 00:30 06/12/24 08:01 Calcium Carbonate 600 Mg Tablet PO 07/07/24 00:29 600 mg QDAY JORDYN Administration Cefepime HCl 2 gm/ Sodium 50 mls @ 100 mls/hr 06/07/24 14:00 06/12/24 13:19 Chloride IV 06/14/24 13:59 100 mls/hr Q8HR JORYDN Administration Metronidazole 500 mg in 100 mls @ 200 mls/hr 06/07/24 14:00 06/12/24 13:19 Flagyl 500 Mg Iv IV 06/14/24 05:59 200 mls/hr Q8HR JORDYN Administration Vancomycin HCl 250 mls @ 120 mls/hr 06/12/24 10:00 06/12/24 10:12 Vancomycin/Water 1250 Mg Ivpb IV 06/19/24 09:59 120 mls/hr BID@1000,2200 JORDYN Administration Protocol Lisinopril 10 mg 06/11/24 09:00 06/12/24 08:02 Lisinopril 2.5 Mg Tablet PO 07/11/24 08:59 10 mg DAILY JORDYN Administration Megestrol Acetate 400 mg 06/10/24 09:00 06/12/24 08:01 Megestrol Acet Susp 400 Mg/10 Ml Udc PO 07/10/24 08:59 400 mg DAILY JORDYN Administration Pharmacy Consult 1 each 06/07/24 09:00 Vancomycin Pharmacy To Dose 1 Each Each IV 07/07/24 08:59 QDAY PRN PROTOCOL Potassium Phos/Sodium Phos 1 packet 06/10/24 21:00 06/12/24 08:01 N[facility] 1 Packet (1.5 Gm) PO 07/10/24 20:59 1 packet BID JORDYN Administration Tamsulosin HCl 0.8 mg 06/10/24 09:00 06/12/24 08:02 Tamsulosin Hcl 0.4 Mg Capsule PO 07/10/24 08:59 0.8 mg DAILY JORDYN Administration Plan 78-year-old male with significant past medical history of hypertension, stage IV prostate cancer, currently on chemotherapy with last chemotherapy 8 days ago was brought in by family for fever, redness to the left hand and generalized body weakness. The patient was admitted to telemetry unit for further management of neutropenic fever. #Neutropenic fever #Sepsis 2/2 #Left hand cellulitis #GNR bacteremia Secondary to chemotherapy that was done 8 days ago for stage IV prostate cancer. Meet SIRS criteria 2/4 with pulse rate 124 and white count 0.5 with left hand cellulitis, and hematopoietic failure were with neutropenia. Pro-Lito 18.24. Received 4 L of IV NS bolus. Received IV vancomycin and Zosyn in the ED. Switched Zosyn to cefepime and Flagyl. Blood cultures 2/[address] head showed soft tissue swelling with air densities, ulnar styloid tip fracture. Swelling of left hand progressively worse, newly noted black discoloration around puncture wound. Patient reexamined, left hand swelling and discoloration stable compared to yesterday. MRI showed significant soft tissue swelling without abscess or osteomyelitis. Transfer nurse consulted with hand surgeon specialist who recommended continued treatment with general surgery and IV antibiotics at [facility]. Urine culture negative. Blood cultures grew pansensitive E. coli. Patient received Neupogen 480 mg subcu x 2 days. ANC significantly improved to 3.7. Based on significant improvement, orthopedics does not recommend pursuing transfer further at this time. Orthopedics to reevaluate for potential debridement, will follow-up. Patient does not show any symptomatic worsening, swelling and discoloration of hand is stable, however erythema is spreading up arm past the elbow. Potential polymicrobial infection. Left hand worsening, with increased pain, and sloughing of skin and purulence. Repeat x-rays ordered. -Vancomycin pharmacy dosing (started 06/06) -Cefepime 2 g IV every 8 hours (started 06/07) -Flagyl 500 mg IV every 8 hours (started 06/07) -Tylenol 650 Mg every 6 hourly as needed for fever, along with cooling measures -Ordered neutropenic isolation -Orthopedics consulted for left hand, recommendations appreciated -Follow-up repeat x-rays. -N.p.o. per orthopedics consult #Hypocalcemia #Hypomagnesemia #Hypokalemia Patient has had significant electrolyte abnormalities refractory to treatment throughout course of stay. Likely multifactorial, due to poor absorption secondary to chemotherapy, high cell turnover due to Neupogen, refeeding syndrome. Patient is required IV magnesium, IV and p.o. potassium multiple times, remains low. -Started on calcium carbonate 600 Mg daily -Monitor daily a.m. labs, replete as necessary -Encouraged dietary intake #Thrombocytopenia Secondary to chemotherapy 8 days ago Platelet count of 43, down to 25 -Hold heparin -Continue to monitor daily a.m. labs for platelets #Mild hypoosmolar hypovolemic hyponatremia, asymptomatic Likely secondary to poor oral intake -Received 4 L IV normal saline bolus -Daily a.m. labs for sodium level #Primary hypertension Currently blood pressure soft -Monitor blood pressure closely #Stage IV prostate cancer Patient is on chemotherapy, last administered 8 days ago -Outpatient follow-up with oncologist -Consult patient's oncologist to potentially resume patient's chemotherapy meds and patient. Diet: Regular, pur?ed DVT prophylaxis: SCDs CODE STATUS: Full code Lines: PIV Plan of care discussed with senior resident Dr. Taylor PGY?[address] Dyer. Kelvin Langley MD PGY?1
--- NOTE | 2024-06-12 16:04 | XR_ITS ---
Examination: Wrist, left 2 views Technique: Wrist AP, 2 views Date and time of exam: June 12, 2024 1614 hours INDICATIONS: Redness swelling and pain involving the wrist FINDINGS: Old healed fracture distal radial metaphysis Old ununited fracture ulnar styloid tip Moderate narrowing radiocarpal joint No acute fracture No epifanio cortical bone destruction IMPRESSION: No acute fracture No epifanio cortical bone obstruction
--- NOTE | 2024-06-12 16:04 | XR_ITS ---
Examination: Hand, left complete Technique: Hand AP, oblique, lateral 3 views Date and time of exam: June 12, 2024 at 1614 hours INDICATIONS: Redness swelling and pain involving the hand this week FINDINGS: Severe osteopenia Old fracture deformity of the distal radial metaphysis Pronounced soft tissue swelling dorsum of the hand No epifanio cortical bone destruction 1 mm opaque foreign body in the soft tissue adjacent to the proximal interphalangeal joint third digit IMPRESSION: No cortical bone destruction, as clinically warranted MRI hand without contrast follow-up would best assess for soft tissue abscess, early osteomyelitis
[2024-06-13] VITALS (17 sets, daily range): BP systolic 104–196; BP diastolic 69–94; PULSE 81–116; RESP 12–20; TEMP 35.8–36.9; O2SAT 94–100; BMI 30.1
[2024-06-13] MEDS: metroNIDAZOLE/NS 500 MG IVPB 500 MG/100 ML BAG 200 MG IV ×3 (05:53→21:00)
[2024-06-13] MEDS: CEFEPIME INJ 2 GM in SODIUM CHLORIDE 0.9% (Popper) 50 ML IV ×3 (05:53→21:00)
[2024-06-13 05:56] LABS: Basophils % (Auto) 0 % (0-2.5); Eosinophils % (Auto) 0 % (0-10); Hematocrit 22.3 % (41.0-53.0); Immature Granulocytes % (Auto) 3 % (0-0); Lymphocytes # (Auto) 2.3 Thou/mm3 (1.0-4.8); Lymphocytes % (Auto) 21 % (10-50); Mean Corpuscular Hemoglobin 34.2 pg (25.0-35.0); Mean Corpuscular Volume 98 fL (80-100); Monocytes % (Auto) 9 % (0-12); Neutrophils # (Auto) 7.6 Thou/mm3 (1.8-7.7); Neutrophils % (Auto) 67 % (37-80); Nucleated Red Blood Cell % 0 /100 WBC (0); Platelet Count 77 Thou/mm3 (140-440); RDW Standard Deviation 49.4 fL (35.1-43.9); Red Blood Count 2.28 Miln/mm3 (4.50-5.90); White Blood Count 11.2 Thou/mm3 (3.8-10.6)
[2024-06-13 06:15] LABS: Hemoglobin 7.8 g/dL (13.5-16.0)
[2024-06-13 06:34] LABS: Alanine Aminotransferase 10 U/L (10-49); Albumin, Serum 2.7 gm/dL (3.4-4.8); Albumin/Globulin Ratio 1.2 (1.2-2.2); Alkaline Phosphatase 67 U/L (46-116); Anion Gap 9 (7-16); Aspartate Amino Transferase 16 U/L (0-34); BUN/Creatinine Ratio 11 Ratio (12-20); Bilirubin,Total 0.2 mg/dL (0.3-1.2); Blood Urea Nitrogen 8 mg/dL (9-23); Calcium 7.9 mg/dL (8.3-10.6); Calcium (Corrected) 8.9 mg/dL (8.5-10.1); Carbon Dioxide 23.6 mMol/L (20.0-31.0); Chloride 108 mMol/L (98-107); Creatinine (Component) 0.7 mg/dL (0.6-1.3); Globulin 2.2 gm/dL (2.3-3.5); Glucose 101 mg/dL (74-106); Magnesium 1.5 mg/dL (1.6-2.6); Osmolality,Calculated 279 (275-295); Phosphorous 2.3 mg/dL (2.4-5.1); Potassium 2.9 mMol/L (3.4-5.1); Sodium 141 mMol/L (136-145); Total Protein 4.9 gm/dL (5.7-8.2); eGFR > 60 See Note
[2024-06-13] MEDS: POT PHOS 15 mMol in NS 250 ML 15 MMOL/250 ML BAG 62.5 MMOL IV (09:24)
[2024-06-13] MEDS: Magnesium Sulfate 4 GM Ivpb 4 GM/50 ML BAG IV (09:24)
[2024-06-13 09:30] LABS: Slide Review Platelets confirmed
[2024-06-13 10:27] LABS: INR 1.2 (0.9-1.3); Partial Thromboplastin Time 29.7 Seconds (22.0-36.0)
--- NOTE | 2024-06-13 11:17 | ESPR_ITS ---
<Statement entered by Osmar Dyer MD - 06/14/24 17:12> I have discussed and was present for the essential components of the history, physical examination, diagnosis, and treatment plan with the resident. I agree with the patient's care as documented by the resident and amended herein by me. Osmar Dyer MD FACP. <Statement entered by Sharon Taylor MD - 06/14/24 14:39> I discussed with and supervised the international marketing specialist physician who took care of this patient. I personally saw and examined the patient and discussed the assessment and plan with the entire medicine team, including my attending Dr. Dyer, I agree with most of the assessment and plan as documented below Sharon Taylor M.D. PGY-2 Documentation for date of: 06/13/24 Subjective Subjective Interval history: No overnight events. Patient seen and examined at bedside, complaining of pain in left hand and itchiness along the arm. Denies fever, chills, shortness of breath, nausea, vomiting. Hand bandaged, plan for surgical debridement this afternoon. Continuing IV antibiotics and electrolyte repletion. Exam Vital Signs Temp Pulse Resp BP Pulse Ox O2 Del Method 97.0 F 92 20 120/69 95 Room Air 06/13/24 08:00 06/13/24 09:45 06/13/24 08:00 06/13/24 09:45 06/13/24 08:00 06/13/24 08:00 Narrative Exam PE: Gen: Well-developed and well-nourished. Calm. HEENT: NCAT, PERRLA, EOMI, MMM, anicteric conjunctivae. CVS: normal S1 and S2. RRR. No M/R/G. Resp: CTA B/L. No rhonchi, rales, crackles or wheezing. Abd: soft, non-tender, non-distended. BS+ in all 4 quadrants. MSK: Good ROM in BUE & BLE. Diffuse bruises, various stages of healing. Right lower extremity swollen. Left hand edematous, tender, erythematous, with newly noted sloughing of skin and purulence. Erythema spread on the dorsal forearm, spreading past the elbow. Left hand sensation and pulse intact. Neuro: CN II-XII grossly intact. Strength 5/5 in BUE & BLE. Alert and oriented x3. Psych: appropriate mood and affect. Objective Labs 06/13/24 04:39 06/13/24 04:39 Labs: Laboratory Results - last 24 hr 06/13/24 04:39 WBC 11.2 H RBC 2.28 L Hgb 7.8 L Hct 22.3 L MCV 98 MCH 34.2 MCHC 35.0 RDW Std Deviation 49.4 H Plt Count 77 L Neut % (Auto) 67 Lymph % (Auto) 21 [place] % (Auto) 9 Eos % (Auto) 0 Baso % (Auto) 0 Neut # (Auto) 7.6 Lymph # (Auto) 2.3 [place] # (Auto) 1.0 H Eos # (Auto) 0.0 Baso # (Auto) 0.0 Immature Gran # (Auto) 0.30 H Absolute Nucleated RBC 0.00 Immature Gran % 3 H Nucleated RBC % 0 PT 13.0 H INR 1.2 APTT 29.7 Sodium 141 Potassium 2.9 L Chloride 108 H Carbon Dioxide 23.6 Anion Gap 9 BUN 8 L Creatinine 0.7 Estim Creat Clear Calc 98.0 eGFR > 60 BUN/Creatinine Ratio 11 L Glucose 101 Calculated Osmolality 279 Calcium 7.9 L Corrected Calcium 8.9 Phosphorus 2.3 L Magnesium 1.5 L Total Bilirubin 0.2 L AST 16 ALT 10 Alkaline Phosphatase 67 Total Protein 4.9 L Albumin 2.7 L Globulin 2.2 L Albumin/Globulin Ratio 1.2 Misc Test Result Platelets confirmed Quality Measures Quality Measures VTE prophylaxis Advance care planning discussed with:: patient Assessment & Plan Assessment Current Active Medications: Generic Name Dose Route Start Last Admin Trade Name Camiloq PRN Reason Stop Dose Admin Acetaminophen 650 mg 06/07/24 00:31 Acetaminophen 325 Mg Tablet PO 07/07/24 00:30 Q6H PRN PAIN SCALE 1-3 (mild Acetaminophen 650 mg 06/08/24 11:06 Acetaminophen 325 Mg Tablet PO 07/07/24 00:30 Q6H PRN Fever >100.4 Calcium Carbonate 600 mg 06/07/24 00:30 06/13/24 09:38 Calcium Carbonate 600 Mg Tablet PO 07/07/24 00:29 Not Given QDAY JORDYN Cefepime HCl 2 gm/ Sodium 50 mls @ 100 mls/hr 06/07/24 14:00 06/13/24 05:53 Chloride IV 06/14/24 13:59 100 mls/hr Q8HR JORDYN Administration Metronidazole 500 mg in 100 mls @ 200 mls/hr 06/07/24 14:00 06/13/24 05:53 Flagyl 500 Mg Iv IV 06/14/24 05:59 200 mls/hr Q8HR JORDYN Administration Vancomycin HCl 250 mls @ 120 mls/hr 06/12/24 10:00 06/12/24 21:04 Vancomycin/Water 1250 Mg Ivpb IV 06/19/24 09:59 120 mls/hr BID@1000,2200 JORDYN Administration Protocol Potassium Chloride 10 meq in 100 mls @ 100 mls/hr 06/13/24 12:55 Kcl Ivpb IV 06/13/24 16:54 Q1H JORDYN Magnesium Sulfate 4 gm in 50 mls @ 12.5 mls/hr 06/13/24 07:55 06/13/24 09:24 Magnesium Sulfate Ivpb IV 06/13/24 11:54 12.5 mls/hr X1 ONE Administration Potassium Phosphate 15 mmol in 250 mls @ 62.5 mls/hr 06/13/24 07:56 06/13/24 09:24 Pot Phos 15 Mmol In Ns 250 Ml IV 06/13/24 11:55 62.5 mls/hr X1 ONE Administration Lisinopril 10 mg 06/11/24 09:00 06/13/24 09:45 Lisinopril 2.5 Mg Tablet PO 07/11/24 08:59 Not Given DAILY [facility] Megestrol Acetate 400 mg 06/10/24 09:00 06/13/24 09:46 Megestrol Acet Susp 400 Mg/10 Ml Udc PO 07/10/24 08:59 Not Given DAILY [facility] Pharmacy Consult 1 each 06/07/24 09:00 Vancomycin Pharmacy To Dose 1 Each Each IV 07/07/24 08:59 QDAY PRN PROTOCOL Potassium Phos/Sodium Phos 1 packet 06/10/24 21:00 06/13/24 09:46 Naph,[facility] Mbdb 1 Packet (1.5 Gm) PO 07/10/24 20:59 Not Given BID JORDYN Tamsulosin HCl 0.8 mg 06/10/24 09:00 06/13/24 09:46 Tamsulosin Hcl 0.4 Mg Capsule PO 07/10/24 08:59 Not Given DAILY JORDYN Plan 78-year-old male with significant past medical history of hypertension, stage IV prostate cancer, currently on chemotherapy with last chemotherapy 8 days ago was brought in by family for fever, redness to the left hand and generalized body weakness. The patient was admitted to telemetry unit for further management of neutropenic fever. #Neutropenic fever #Sepsis (resolved) 2/2 #Left hand cellulitis #GNR bacteremia Secondary to chemotherapy that was done 8 days ago for stage IV prostate cancer. Meet SIRS criteria 2/4 with pulse rate 124 and white count 0.5 with left hand cellulitis, and hematopoietic failure were with neutropenia. Pro-Lito 18.24. Received 4 L of IV NS bolus. Received IV vancomycin and Zosyn in the ED. Switched Zosyn to cefepime and Flagyl. Blood cultures 2/[address] head showed soft tissue swelling with air densities, ulnar styloid tip fracture. Swelling of left hand progressively worse, newly noted black discoloration around puncture wound. Patient reexamined, left hand swelling and discoloration stable compared to yesterday. MRI showed significant soft tissue swelling without abscess or osteomyelitis. Transfer nurse consulted with hand surgeon specialist who recommended continued treatment with general surgery and IV antibiotics at [facility]. Urine culture negative. Blood cultures grew pansensitive E. coli. Patient received Neupogen 480 mg subcu x 2 days. ANC significantly improved to 3.7. Based on significant improvement, orthopedics does not recommend pursuing transfer further at this time. Orthopedics to reevaluate for potential debridement, will follow-up. Patient does not show any symptomatic worsening, swelling and discoloration of hand is stable, however erythema is spreading up arm past the elbow. Potential polymicrobial infection. Left hand worsening, with increased pain, and sloughing of skin and purulence. Repeat x-rays ordered. -Vancomycin pharmacy dosing (started 06/06) -Cefepime 2 g IV every 8 hours (started 06/07) -Flagyl 500 mg IV every 8 hours (started 06/07) -Tylenol 650 Mg every 6 hourly as needed for fever, along with cooling measures -Ordered neutropenic isolation -Orthopedics consulted for left hand, recommendations appreciated -N.p.o. -Surgical debridement this afternoon, will follow-up -Topical Benadryl for left arm itchiness #Hypocalcemia #Hypomagnesemia #Hypokalemia Patient has had significant electrolyte abnormalities refractory to treatment throughout course of stay. Likely multifactorial, due to poor absorption secondary to chemotherapy, high cell turnover due to Neupogen, refeeding syndrome. Patient is required IV magnesium, IV and p.o. potassium multiple times, remains low. -Started on calcium carbonate 600 Mg daily -Monitor daily a.m. labs, replete as necessary -Encouraged dietary intake #Thrombocytopenia Secondary to chemotherapy 8 days ago Platelet count of 43, down to 25 -Hold heparin -Continue to monitor daily a.m. labs for platelets #Mild hypoosmolar hypovolemic hyponatremia, asymptomatic Likely secondary to poor oral intake -Received 4 L IV normal saline bolus -Daily a.m. labs for sodium level #Primary hypertension Currently blood pressure soft -Monitor blood pressure closely #Stage IV prostate cancer Patient is on chemotherapy, last administered 8 days ago -Outpatient follow-up with oncologist -Consult patient's oncologist to potentially resume patient's chemotherapy meds and patient. Diet: Regular, pur?ed DVT prophylaxis: SCDs CODE STATUS: Full code Lines: PIV Plan of care discussed with senior resident Dr. Taylor PGY?[address] Dyer. Kelvin Langley MD PGY?1
[2024-06-13 11:38] LABS: Vancomycin,Trough 21.8 mcg/mL (5.0-10.0)
--- NOTE | 2024-06-13 12:54 | PD.SURCONS ---
HPI Consult details Consult date: 06/13/24 Reason for consultation narrative: Patient was seen in consultation for debridement of the left hand. Meds Home Medications and Allergies Home Medications ?Medication ?Instructions ?Recorded ?Confirmed ?Type abiraterone 500 mg tablet 1,000 mg PO DAILY 06/09/24 06/09/24 History ergocalciferol (vitamin D2) 1,250 1,250 mcg PO .weeklly 06/09/24 06/09/24 History mcg (50,000 unit) capsule lisinopril 5 mg tablet 5 mg PO DAILY 06/09/24 06/09/24 History megestrol 400 mg/10 mL (40 mg/mL) 400 mg PO DAILY 06/09/24 06/09/24 History oral suspension prednisone 5 mg tablet 5 mg PO BID 06/09/24 06/09/24 History tamsulosin 0.4 mg capsule 0.8 mg PO DAILY 06/09/24 06/09/24 History Allergies Allergy/AdvReac Type Severity Reaction Status Date / Time No Known Allergies Allergy Verified 06/06/24 19:39 Exam Vital Signs Temp Pulse Resp BP Pulse Ox O2 Del Method 97.0 F 92 20 120/69 95 Room Air 06/13/24 08:00 06/13/24 09:45 06/13/24 08:00 06/13/24 09:45 06/13/24 08:00 06/13/24 08:00
--- NOTE | 2024-06-13 13:05 | PD.SURCONS ---
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 He developed cellulitis over the left upper extremity and was admitted to the hospital the past week given antibiotics. Patient was found to be markedly leukopenic because of the chemotherapy for prostate cancer other problem consist of hypertension. Past Medical History Past Medical History NEUROLOGIC: Negative Seizures CARDIAC: Positive Cardiac Disorders and Hypertension; Negative Congestive Heart Failure RESPIRATORY: Negative Respiratory Disorders or Chronic Obstructive Pulmonary Disease (COPD) GENITOURINARY: Positive Prostate Cancer; Negative Renal Disease ENDOCRINE: Negative Diabetes Mellitus Type 1 or Diabetes Mellitus Type 2 OTHER HISTORY: Positive Cancer and Prostate Cancer; Negative Blood Transfusions or Anesthesia Reactions Social History SMOKING STATUS: Never smoker Meds Home Medications and Allergies Home Medications ?Medication ?Instructions ?Recorded ?Confirmed ?Type abiraterone 500 mg tablet 1,000 mg PO DAILY 06/09/24 06/09/24 History ergocalciferol (vitamin D2) 1,250 1,250 mcg PO .weeklly 06/09/24 06/09/24 History mcg (50,000 unit) capsule lisinopril 5 mg tablet 5 mg PO DAILY 06/09/24 06/09/24 History megestrol 400 mg/10 mL (40 mg/mL) 400 mg PO DAILY 06/09/24 06/09/24 History oral suspension prednisone 5 mg tablet 5 mg PO BID 06/09/24 06/09/24 History tamsulosin 0.4 mg capsule 0.8 mg PO DAILY 06/09/24 06/09/24 History Allergies Allergy/AdvReac Type Severity Reaction Status Date / Time No Known Allergies Allergy Verified 06/06/24 19:39 Exam Vital Signs Temp Pulse Resp BP Pulse Ox O2 Del Method 97.0 F 92 20 120/69 95 Room Air 06/13/24 08:00 06/13/24 09:45 06/13/24 08:00 06/13/24 09:45 06/13/24 08:00 06/13/24 08:00 Narrative Exam Physical examination revealed an elderly gentleman who appeared to be in his stated age of 78 years and speaks only Ukrainian his vital signs are normal Routine Extremities Exam Comments: Examination of the left upper extremity revealed cellulitis about the elbow region. Patient also had a cellulitis over the left dorsal aspect including all the fingers. Patient had a necrotic tissue over the thenar eminence at the base of the left index finger and the thumb. This area extends about 4 to 5 cm in diameter another area extending about 2 to 3 cm in diameter. Both these were necrotic tissue and required debridement patient's pulses are normal Results Results: Laboratory Laboratory Narrative: Patient's laboratory workup showed improvement from the leukopenia where his blood count was less than 1000 at the present time which is about 11,000. Patient also was very anemic with a hemoglobin of around 7.4 g. Results: Imaging Imaging narrative: X-rays of the left hand and wrist showed no bony involvement Assessment & Plan Additional Assessment Additional comments: Impression: Necrotic tissue left hand following cellulitis and injury Plan Plan: We shall arrange for debridement under his general anesthesia today. We shall arrange for debridement in the operating room today
--- NOTE | 2024-06-13 13:50 | SUR.PHASEI ---
1350: Pt. AAOx4, vitals stable, breathing unlabored, no complaint of pain or nausea, dressing to left hand CDI, no active bleed noted, bilateral brachial pulses strong and regular, pt. able to wiggle bilateral fingers, report received from Jacquelyn BATES, Pavel BATES, and MD Naik.
--- NOTE | 2024-06-13 14:00 | PD.SUROPNT ---
Date of Procedure 06/13/24 Pre Op Diagnosis Necrotic ulcer left hand Post Op Diagnosis Same Procedure Debridement of the left hand dorsal aspect full-thickness skin Findings Patient is found to have a necrotic wound over the left hand on the dorsal aspect which required debridement Procedure Description After the patient was brought to the operating room LMA anesthesia was given. Left hand was washed with Betadine solution and draped in a sterile manner. Timeout was performed. Then I used a 15 blade knife and excised the necrotic skin which was a full-thickness skin. It went down to the subcutaneous tissue and there is no further necrosis. This wound was located at the first webspace on the dorsal aspect of the left hand and it measured about 8 cm x 4 cm. Bleeding points were seen underneath which was coagulated with cautery. Then I washed the area with saline solution and placed Adaptic and 4 x 4 gauze and wrapped it and Kerlix roll. Patient tolerated procedure. Anesthesia other (General LMA) Pathology / specimen None Estimated Blood Loss 20 Surgeon Kelin Burleson MD Surgical Staff Operation Date: 06/13/24 12:15 Case Staff Anesthesiologist: Nelson Naik
[2024-06-13] MEDS: fentaNYL CIT INJ 50 mCg/ML AMP 2ML 25 MCG IV ×2 (14:03→14:27)
--- NOTE | 2024-06-13 14:24 | PC.SS ---
rounding note: Patient scheduled for a hand debridement. Tentative d/c plan is to return home with friends.
--- NOTE | 2024-06-13 14:40 | SUR.PHASEI ---
1440: Pt. AAOx4, vitals stable, breathing unlabored, no complaint of pain or nausea, dressing to left hand CDI, no active bleed noted, bilateral brachial pulses strong and regular, pt. able to move bilateral hands, gave report to Ana Paula BATES prior to transfer to room.
--- NOTE | 2024-06-13 14:53 | SUR.PHASEI ---
attempted to call pt. family to update them pt. transfer to room, no response.
[2024-06-13] MEDS: VANCOMYCIN/NS 1 GM IVPB 200 ML IV ×2 (14:54→22:06)
[2024-06-13] MEDS: POTASSIUM CHL 10 mEq IVPB 10 MEQ/100 ML BAG 75 MEQ IV ×4 (15:46→19:26)
--- NOTE | 2024-06-13 19:53 | PC.NURSE ---
Called Katja GOMEZ ok to give mejiao at 2200
[2024-06-13] MEDS: NAPH,KPH MBDB 1 PACKET (1.5 GM) PO (21:00)
[2024-06-14] VITALS (9 sets, daily range): BP systolic 148–173; BP diastolic 66–98; PULSE 66–108; RESP 16–96; TEMP 36.2–36.8; O2SAT 95–98; BMI 28.6
--- NOTE | 2024-06-14 01:15 | PC.NURSE ---
Dr Sales made aware of pts elevated bp. no new orders received at this time. Doctor came and checked on pt. pt resting per doctor we will continue to monitor bp but let pt rest at this time. Doctor ok with rechecking bp about 0300.
[2024-06-14] MEDS: CEFEPIME INJ 2 GM in SODIUM CHLORIDE 0.9% (Popper) 50 ML IV (04:59)
[2024-06-14 06:05] LABS: Basophils % (Auto) 0 % (0-2.5); Eosinophils % (Auto) 0 % (0-10); Hematocrit 23.7 % (41.0-53.0); Immature Granulocytes % (Auto) 2 % (0-0); Immature Granulocytes Auto 0.23 Thou/mm3 (0.00-0.00); Lymphocytes # (Auto) 1.7 Thou/mm3 (1.0-4.8); Lymphocytes % (Auto) 15 % (10-50); Mean Corpuscular HGB Conc 34.2 g/dl (31.0-37.0); Mean Corpuscular Hemoglobin 34.2 pg (25.0-35.0); Mean Corpuscular Volume 100 fL (80-100); Monocytes # (Auto) 0.6 Thou/mm3 (0.0-0.8); Monocytes % (Auto) 5 % (0-12); Neutrophils # (Auto) 8.9 Thou/mm3 (1.8-7.7); Neutrophils % (Auto) 78 % (37-80); Nucleated Red Blood Cell # 0.02 Thou/mm3 (0.00-0.00); Nucleated Red Blood Cell % 0 /100 WBC (0); Platelet Count 128 Thou/mm3 (140-440); RDW Standard Deviation 50.1 fL (35.1-43.9); Red Blood Count 2.37 Miln/mm3 (4.50-5.90); White Blood Count 11.4 Thou/mm3 (3.8-10.6)
[2024-06-14 06:23] LABS: Hemoglobin 8.1 g/dL (13.5-16.0)
[2024-06-14 06:29] LABS: Alanine Aminotransferase 11 U/L (10-49); Albumin, Serum 2.9 gm/dL (3.4-4.8); Albumin/Globulin Ratio 1.3 (1.2-2.2); Alkaline Phosphatase 66 U/L (46-116); Anion Gap 8 (7-16); Aspartate Amino Transferase 16 U/L (0-34); BUN/Creatinine Ratio 19 Ratio (12-20); Bilirubin,Total 0.2 mg/dL (0.3-1.2); Blood Urea Nitrogen 13 mg/dL (9-23); Calcium 7.7 mg/dL (8.3-10.6); Calcium (Corrected) 8.6 mg/dL (8.5-10.1); Chloride 111 mMol/L (98-107); Creatinine (Component) 0.7 mg/dL (0.6-1.3); Estimated Creatinine Clearance 95.7 mL/min (>60); Globulin 2.3 gm/dL (2.3-3.5); Glucose 140 mg/dL (74-106); Osmolality,Calculated 287 (275-295); Phosphorous 2.9 mg/dL (2.4-5.1); Potassium 3.7 mMol/L (3.4-5.1); Sodium 143 mMol/L (136-145); Total Protein 5.2 gm/dL (5.7-8.2); eGFR > 60 See Note
[2024-06-14] MEDS: VANCOMYCIN/NS 1 GM IVPB 200 ML IV (09:23)
[2024-06-14] MEDS: MEGESTROL ACET SUSP 400 MG/10 ML UDC PO (09:24)
[2024-06-14] MEDS: NAPH,KPH MBDB 1 PACKET (1.5 GM) PO ×2 (09:24→20:07)
[2024-06-14] MEDS: Lisinopril 2.5 MG TABLET 10 MG PO (09:24)
[2024-06-14] MEDS: TAMSULOSIN HCL 0.4 MG CAPSULE 0.8 MG PO (09:24)
[2024-06-14] MEDS: CALCIUM CARBONATE 600 MG TABLET PO (09:24)
--- NOTE | 2024-06-14 10:18 | XR_ITS ---
Examination: Duplex scan of the upper extremity, unilateral left complete Date and time of exam: June 14, 2024 1050 hrs. Indications: Left arm redness swelling and pain beginning one week ago Technique: Duplex scan of the extremity veins using B-mode/grayscale imaging and Doppler spectral analysis and color flow Attention is directed to internal echogenicity, compression and augmentation involving these veins, color flow assessment, spectral analysis Findings: Major deep venous structures in the extremity demonstrate normal course and caliber. There is no evidence of deep vein thrombosis. Normal color flow and spectral analysis Impression: Negative for DVT..
[2024-06-14] MEDS: ceFAZolin/D5W 2 GM IV 2 GM/100 ML BAG IV ×2 (13:25→21:22)
--- NOTE | 2024-06-14 13:48 | ESPR_ITS ---
<Statement entered by Osmar Dyer MD - 06/14/24 17:12> I have discussed and was present for the essential components of the history, physical examination, diagnosis, and treatment plan with the resident. I agree with the patient's care as documented by the resident and amended herein by me. Osmar Dyer MD FACP. Documentation for date of: 06/14/24 Subjective Subjective Interval history: Patient seen and examined No overnight events. [facility]op day [facility] Rounded with RN Exam Vital Signs Temp Pulse Resp BP Pulse Ox O2 Del Method O2 Flow Rate 97.5 F 77 16 153/75 H 95 Room Air 4 06/14/24 12:00 06/14/24 12:00 06/14/24 12:00 06/14/24 12:00 06/14/24 12:06/14/24 12:00 06/13/24 14:05 Narrative Exam PE: Gen: Well-developed and well-nourished. Calm. HEENT: NCAT, PERRLA, EOMI, MMM, anicteric conjunctivae. CVS: normal S1 and S2. RRR. No M/R/G. Resp: CTA B/L. No rhonchi, rales, crackles or wheezing. Abd: soft, non-tender, non-distended. BS+ in all 4 quadrants. MSK: Good ROM in BUE & BLE. Diffuse bruises, various stages of healing. Right lower extremity swollen. Left hand edematous, tender, erythematous, with newly noted with post op bandage. Erythema spread on the dorsal forearm, spreading past the elbow. Left hand sensation and pulse intact. Neuro: CN II-XII grossly intact. Strength 5/5 in BUE & BLE. Alert and oriented x3. Psych: appropriate mood and affect. Objective Labs 06/14/24 04:58 06/14/24 04:58 Labs: Laboratory Results - last 24 hr 06/14/24 04:58 WBC 11.4 H RBC 2.37 L Hgb 8.1 L Hct 23.7 L MCV 100 MCH 34.2 MCHC 34.2 RDW Std Deviation 50.1 H Plt Count 128 L D Neut % (Auto) 78 Lymph % (Auto) 15 [place] % (Auto) 5 Eos % (Auto) 0 Baso % (Auto) 0 Neut # (Auto) 8.9 H Lymph # (Auto) 1.7 [place] # (Auto) 0.6 Eos # (Auto) 0.0 Baso # (Auto) 0.0 Immature Gran # (Auto) 0.23 H Absolute Nucleated RBC 0.02 H Immature Gran % 2 H Nucleated RBC % 0 Sodium 143 Potassium 3.7 D Chloride 111 H Carbon Dioxide 24.0 Anion Gap 8 BUN 13 Creatinine 0.7 Estim Creat Clear Calc 95.7 eGFR > 60 BUN/Creatinine Ratio 19 Glucose 140 H Calculated Osmolality 287 Calcium 7.7 L Corrected Calcium 8.6 Phosphorus 2.9 Magnesium 2.0 Total Bilirubin 0.2 L AST 16 ALT 11 Alkaline Phosphatase 66 Total Protein 5.2 L Albumin 2.9 L Globulin 2.3 Albumin/Globulin Ratio 1.3 Quality Measures Quality Measures VTE prophylaxis Advance care planning discussed with:: patient Assessment & Plan Assessment Current Active Medications: Generic Name Dose Route Start Last Admin Trade Name Freq PRN Reason Stop Dose Admin Acetaminophen 650 mg 06/07/24 00:31 Acetaminophen 325 Mg Tablet PO 07/07/24 00:30 Q6H PRN PAIN SCALE 1-3 (mild Acetaminophen 650 mg 06/08/24 11:06 Acetaminophen 325 Mg Tablet PO 07/07/24 00:30 Q6H PRN Fever >100.4 Calcium Carbonate 600 mg 06/07/24 00:30 06/14/24 09:24 Calcium Carbonate 600 Mg Tablet PO 07/07/24 00:29 600 mg QDAY JORDYN Administration Cefepime HCl 2 gm/ Sodium 50 mls @ 100 mls/hr 06/07/24 14:00 06/14/24 04:59 Chloride IV 06/14/24 13:59 100 mls/hr Q8HR JORDYN Administration Cefazolin Sodium 2 gm in 100 mls @ 100 mls/hr 06/14/24 11:15 06/14/24 13:25 Ancef 2gm Ivpb IV 06/21/24 11:14 100 mls/hr Q8HR JORDYN Administration Lisinopril 10 mg 06/11/24 09:00 06/14/24 09:24 Lisinopril 2.5 Mg Tablet PO 07/11/24 08:59 10 mg DAILY JORDYN Administration Megestrol Acetate 400 mg 06/10/24 09:00 06/14/24 09:24 Megestrol Acet Susp 400 Mg/10 Ml Udc PO 07/10/24 08:59 400 mg DAILY JORDYN Administration Pharmacy Consult 1 each 06/07/24 09:00 Vancomycin Pharmacy To Dose 1 Each Each IV 07/07/24 08:59 QDAY PRN PROTOCOL Potassium Phos/Sodium Phos 1 packet 06/10/24 21:00 06/14/24 09:24 [facility]db 1 Packet (1.5 Gm) PO 07/10/24 20:59 1 packet BID JORDYN Administration Tamsulosin HCl 0.8 mg 06/10/24 09:00 06/14/24 09:24 Tamsulosin Hcl 0.4 Mg Capsule PO 07/10/24 08:59 0.8 mg DAILY JORDYN Administration Zinc Acetate/Diphenhydramine 0 gm 06/13/24 11:49 Diphenhydramine/Zn Acet 2% Cr 30 Gm Tube TOP 07/13/24 11:48 Q4HR PRN Rash or itchiness Plan 78-year-old male with significant past medical history of hypertension, stage IV prostate cancer, currently on chemotherapy with last chemotherapy 8 days ago was brought in by family for fever, redness to the left hand and generalized body weakness. The patient was admitted to telemetry unit for further management of neutropenic fever. #Left hand s/p debridement on 06/14/23 #Neutropenic fever, resolved #Sepsis (resolved) 2/2 #GNR bacteremia Assessment: Secondary to chemotherapy that was done 8 days ago for stage IV prostate cancer. Meet SIRS criteria 2/4 with pulse rate 124 and white count 0.5 with left hand cellulitis, and hematopoietic failure were with neutropenia. Pro-Lito 18.24. Received 4 L of IV NS bolus. Received IV vancomycin and Zosyn in the ED. Switched Zosyn to cefepime and Flagyl. Blood cultures 2/[address] head showed soft tissue swelling with air densities, ulnar styloid tip fracture. Swelling of left hand progressively worse, newly noted black discoloration around puncture wound. Patient reexamined, left hand swelling and discoloration stable compared to yesterday. MRI showed significant soft tissue swelling without abscess or osteomyelitis. Transfer nurse consulted with hand surgeon specialist who recommended continued treatment with general surgery and IV antibiotics at [facility]. Urine culture negative. Blood cultures grew pansensitive E. coli. Patient received Neupogen 480 mg subcu x 2 days. ANC significantly improved to 3.7. Based on significant improvement, orthopedics does not recommend pursuing transfer further at this time. Orthopedics to reevaluate for potential debridement, will follow-up. Patient does not show any symptomatic worsening, swelling and discoloration of hand is stable, however erythema is spreading up arm past the elbow. Potential polymicrobial infection. Left hand worsening, with increased pain, and sloughing of skin and purulence. Repeat x-rays ordered. Plan: -stop Vancomycin pharmacy dosing (started 06/06-06/14) -stop Cefepime 2 g IV every 8 hours (started 06/07-06/14) -stop Flagyl 500 mg IV every 8 hours (started 06/07-06/14) -start ancef 2g q8h -Tylenol 650 Mg every 6 hourly as needed for fever, along with cooling measures -Ordered neutropenic isolation -Orthopedics consulted for left hand, recommendations appreciated -Surgical debridement this afternoon, will follow-up -Topical Benadryl for left arm itchiness #Hypocalcemia #Hypomagnesemia #Hypokalemia Patient has had significant electrolyte abnormalities refractory to treatment throughout course of stay. Likely multifactorial, due to poor absorption secondary to chemotherapy, high cell turnover due to Neupogen, refeeding syndrome. Patient is required IV magnesium, IV and p.o. potassium multiple times, remains low. -Started on calcium carbonate 600 Mg daily -Monitor daily a.m. labs, replete as necessary -Encouraged dietary intake #Thrombocytopenia Secondary to chemotherapy 8 days ago Platelet count of 43, down to 25 -Hold heparin -Continue to monitor daily a.m. labs for platelets #Mild hypoosmolar hypovolemic hyponatremia, asymptomatic Likely secondary to poor oral intake -Received 4 L IV normal saline bolus -Daily a.m. labs for sodium level #Primary hypertension Currently blood pressure soft -Monitor blood pressure closely #Stage IV prostate cancer Patient is on chemotherapy, last administered 8 days ago -Outpatient follow-up with oncologist -Consult patient's oncologist to potentially resume patient's chemotherapy meds and patient. Diet: Regular, pur?ed DVT prophylaxis: SCDs CODE STATUS: Full code Lines: PIV - Patient's care was discussed with my attending physician, Dr. Gomez Samayoa MD Internal Medicine PGY-3
[2024-06-14 21:17] LABS: Vancomycin,Trough 14.9 mcg/mL (5.0-10.0)
[2024-06-15] VITALS (10 sets, daily range): BP systolic 118–163; BP diastolic 66–85; PULSE 74–107; RESP 15–96; TEMP 36.1–36.4; O2SAT 96–99; BMI 29.5
[2024-06-15] MEDS: ACETAMINOPHEN 325 MG TABLET 650 MG PO (03:42)
[2024-06-15] MEDS: VANCOMYCIN 125 MG CAPSULE PO (05:43)
[2024-06-15] MEDS: ceFAZolin/D5W 2 GM IV 2 GM/100 ML BAG IV ×3 (05:44→21:25)
[2024-06-15 06:10] LABS: Basophils % (Auto) 0 % (0-2.5); Eosinophils % (Auto) 0 % (0-10); Hematocrit 22.8 % (41.0-53.0); Immature Granulocytes % (Auto) 2 % (0-0); Lymphocytes # (Auto) 2.5 Thou/mm3 (1.0-4.8); Lymphocytes % (Auto) 22 % (10-50); Mean Corpuscular HGB Conc 34.6 g/dl (31.0-37.0); Mean Corpuscular Hemoglobin 34.1 pg (25.0-35.0); Mean Corpuscular Volume 98 fL (80-100); Monocytes # (Auto) 0.9 Thou/mm3 (0.0-0.8); Monocytes % (Auto) 8 % (0-12); Neutrophils # (Auto) 7.7 Thou/mm3 (1.8-7.7); Neutrophils % (Auto) 68 % (37-80); Nucleated Red Blood Cell % 0 /100 WBC (0); Platelet Count 159 Thou/mm3 (140-440); RDW Standard Deviation 49.7 fL (35.1-43.9); Red Blood Count 2.32 Miln/mm3 (4.50-5.90); White Blood Count 11.4 Thou/mm3 (3.8-10.6)
[2024-06-15 06:21] LABS: Alanine Aminotransferase 10 U/L (10-49); Albumin, Serum 2.8 gm/dL (3.4-4.8); Albumin/Globulin Ratio 1.2 (1.2-2.2); Alkaline Phosphatase 61 U/L (46-116); Anion Gap 7 (7-16); Aspartate Amino Transferase 16 U/L (0-34); BUN/Creatinine Ratio 20 Ratio (12-20); Bilirubin,Total 0.3 mg/dL (0.3-1.2); Blood Urea Nitrogen 12 mg/dL (9-23); Calcium 7.9 mg/dL (8.3-10.6); Calcium (Corrected) 8.9 mg/dL (8.5-10.1); Carbon Dioxide 27.4 mMol/L (20.0-31.0); Chloride 110 mMol/L (98-107); Creatinine (Component) 0.6 mg/dL (0.6-1.3); Estimated Creatinine Clearance 113.1 mL/min (>60); Globulin 2.4 gm/dL (2.3-3.5); Glucose 94 mg/dL (74-106); Magnesium 1.6 mg/dL (1.6-2.6); Osmolality,Calculated 286 (275-295); Phosphorous 2.3 mg/dL (2.4-5.1); Potassium 3.5 mMol/L (3.4-5.1); Sodium 144 mMol/L (136-145); Total Protein 5.2 gm/dL (5.7-8.2); eGFR > 60 See Note
[2024-06-15 06:28] LABS: Hemoglobin 7.9 g/dL (13.5-16.0)
[2024-06-15] MEDS: TAMSULOSIN HCL 0.4 MG CAPSULE 0.8 MG PO (08:55)
[2024-06-15] MEDS: MEGESTROL ACET SUSP 400 MG/10 ML UDC PO (08:55)
[2024-06-15] MEDS: Lisinopril 2.5 MG TABLET 10 MG PO (08:55)
[2024-06-15] MEDS: NAPH,KPH MBDB 1 PACKET (1.5 GM) PO ×2 (08:55→21:25)
[2024-06-15] MEDS: CALCIUM CARBONATE 600 MG TABLET PO (08:55)
--- NOTE | 2024-06-15 11:33 | ESPR_ITS ---
<Statement entered by Osmar Dyer MD - 06/16/24 10:34> I have discussed and was present for the essential components of the history, physical examination, diagnosis, and treatment plan with the resident. I agree with the patient's care as documented by the resident and amended herein by me. Osmar Dyer MD FACP. Documentation for date of: 06/15/24 Subjective Subjective Interval history: Overnight: Patient had 4 loose bowel movements, stool C. difficile testing ordered. Patient seen examined at bedside, resting comfortably. Patient endorses overall subjective improvement in left hand, decreased pain and improved range of motion in fingers and wrist. Patient denies fever, chills, shortness of breath, nausea, vomiting. Follow-up C. difficile testing. Exam Vital Signs Temp Pulse Resp BP Pulse Ox O2 Del Method O2 Flow Rate 97.1 F 85 17 163/81 H 99 Room Air 4 06/15/24 08:00 06/15/24 08:55 06/15/24 08:00 06/15/24 08:55 06/15/24 08:00 06/15/24 08:00 06/15/24 08:00 Narrative Exam PE: Gen: Well-developed and well-nourished. Calm. HEENT: NCAT, PERRLA, EOMI, MMM, anicteric conjunctivae. CVS: normal S1 and S2. RRR. No M/R/G. Resp: CTA B/L. No rhonchi, rales, crackles or wheezing. Abd: soft, non-tender, non-distended. BS+ in all 4 quadrants. MSK: Good ROM in BUE & BLE. Diffuse bruises, various stages of healing. Right lower extremity swollen. Left hand edematous, tender, erythematous, with post op bandage, improved. Erythema spread on the dorsal forearm, improved. Left hand sensation and pulse intact. Neuro: CN II-XII grossly intact. Strength 5/5 in BUE & BLE. Alert and oriented x3. Psych: appropriate mood and affect. Objective Labs 06/15/24 05:36 06/15/24 05:36 Labs: Laboratory Results - last 24 hr 06/14/24 06/15/24 20:52 05:36 WBC 11.4 H RBC 2.32 L Hgb 7.9 L Hct 22.8 L MCV 98 MCH 34.1 MCHC 34.6 RDW Std Deviation 49.7 H Plt Count 159 D Neut % (Auto) 68 Lymph % (Auto) 22 [place] % (Auto) 8 Eos % (Auto) 0 Baso % (Auto) 0 Neut # (Auto) 7.7 Lymph # (Auto) 2.5 [place] # (Auto) 0.9 H Eos # (Auto) 0.0 Baso # (Auto) 0.0 Immature Gran # (Auto) 0.20 H Absolute Nucleated RBC 0.00 Immature Gran % 2 H Nucleated RBC % 0 Sodium 144 Potassium 3.5 Chloride 110 H Carbon Dioxide 27.4 Anion Gap 7 BUN 12 Creatinine 0.6 Estim Creat Clear Calc 113.1 eGFR > 60 BUN/Creatinine Ratio 20 Glucose 94 Calculated Osmolality 286 Calcium 7.9 L Corrected Calcium 8.9 Phosphorus 2.3 L Magnesium 1.6 Total Bilirubin 0.3 AST 16 ALT 10 Alkaline Phosphatase 61 Total Protein 5.2 L Albumin 2.8 L Globulin 2.4 Albumin/Globulin Ratio 1.2 Vancomycin Trough 14.9 H Quality Measures Quality Measures VTE prophylaxis Advance care planning discussed with:: patient Assessment & Plan Assessment Current Active Medications: Generic Name Dose Route Start Last Admin Trade Name Freq PRN Reason Stop Dose Admin Acetaminophen 650 mg 06/07/24 00:31 06/15/24 03:42 Acetaminophen 325 Mg Tablet PO 07/07/24 00:30 650 mg Q6H PRN Administration PAIN SCALE 1-3 (mild Acetaminophen 650 mg 06/08/24 11:06 Acetaminophen 325 Mg Tablet PO 07/07/24 00:30 Q6H PRN Fever >100.4 Calcium Carbonate 600 mg 06/07/24 00:30 06/15/24 08:55 Calcium Carbonate 600 Mg Tablet PO 07/07/24 00:29 600 mg QDAY JORDYN Administration Cefazolin Sodium 2 gm in 100 mls @ 100 mls/hr 06/14/24 11:15 06/15/24 05:44 Ancef 2gm Ivpb IV 06/21/24 11:14 100 mls/hr Q8HR JORDYN Administration Lisinopril 10 mg 06/11/24 09:00 06/15/24 08:55 Lisinopril 2.5 Mg Tablet PO 07/11/24 08:59 10 mg DAILY JORDYN Administration Megestrol Acetate 400 mg 06/10/24 09:00 06/15/24 08:55 Megestrol Acet Susp 400 Mg/10 Ml Udc PO 07/10/24 08:59 400 mg DAILY JORDYN Administration Potassium Phos/Sodium Phos 1 packet 06/10/24 21:00 06/15/24 08:55 [facility] Mbdb 1 Packet (1.5 Gm) PO 07/10/24 20:59 1 packet BID JORDYN Administration Psyllium Hydrophilic Mucilloid 1 pkt 06/15/24 03:38 Psyllium 1 Pkt Packet PO 07/15/24 03:37 TID PRN DIARRHEA Protocol Tamsulosin HCl 0.8 mg 06/10/24 09:00 06/15/24 08:55 Tamsulosin Hcl 0.4 Mg Capsule PO 07/10/24 08:59 0.8 mg DAILY JORDYN Administration Zinc Acetate/Diphenhydramine 0 gm 06/13/24 11:49 Diphenhydramine/Zn Acet 2% Cr 30 Gm Tube TOP 07/13/24 11:48 Q4HR PRN Rash or itchiness Plan 78-year-old male with significant past medical history of hypertension, stage IV prostate cancer, currently on chemotherapy with last chemotherapy 8 days ago was brought in by family for fever, redness to the left hand and generalized body weakness. The patient was admitted to telemetry unit for further management of neutropenic fever. #Left hand s/p debridement on 06/14/23 #Neutropenic fever, resolved #Sepsis (resolved) 2/2 #GNR bacteremia Secondary to chemotherapy that was done 8 days ago for stage IV prostate cancer. Meet SIRS criteria 2/4 with pulse rate 124 and white count 0.5 with left hand cellulitis, and hematopoietic failure were with neutropenia. Pro-Lito 18.24. Received 4 L of IV NS bolus. Received IV vancomycin and Zosyn in the ED. Switched Zosyn to cefepime and Flagyl. Blood cultures 2/[address] head showed soft tissue swelling with air densities, ulnar styloid tip fracture. Swelling of left hand progressively worse, newly noted black discoloration around puncture wound. Patient reexamined, left hand swelling and discoloration stable compared to yesterday. MRI showed significant soft tissue swelling without abscess or osteomyelitis. Transfer nurse consulted with hand surgeon specialist who recommended continued treatment with general surgery and IV antibiotics at [facility]. Urine culture negative. Blood cultures grew pansensitive E. coli. Patient received Neupogen 480 mg subcu x 2 days. ANC significantly improved to 3.7. Based on significant improvement, orthopedics does not recommend pursuing transfer further at this time. Orthopedics to reevaluate for potential debridement, will follow-up. Patient does not show any symptomatic worsening, swelling and discoloration of hand is stable, however erythema is spreading up arm past the elbow. Potential polymicrobial infection. Left hand worsening, with increased pain, and sloughing of skin and purulence. Repeat x-rays ordered. Patient received surgical debridement with significant improvement. Antibiotics narrowed to Ancef, patient continues to show clinical improvement. -stop Vancomycin pharmacy dosing (06/06-06/14) -stop Cefepime 2 g IV every 8 hours (06/07-06/14) -stop Flagyl 500 mg IV every 8 hours (06/07-06/14) -start ancef 2g q8h (started 06/14) -Tylenol 650 Mg every 6 hourly as needed for fever, along with cooling measures -Ordered neutropenic isolation -Orthopedics consulted for left hand, recommendations appreciated -Topical Benadryl for left arm itchiness #Hypocalcemia #Hypomagnesemia #Hypokalemia Patient has had significant electrolyte abnormalities refractory to treatment throughout course of stay. Likely multifactorial, due to poor absorption secondary to chemotherapy, high cell turnover due to Neupogen, refeeding syndrome. Patient is required IV magnesium, IV and p.o. potassium multiple times, remains low. -Started on calcium carbonate 600 Mg daily -Monitor daily a.m. labs, replete as necessary -Encouraged dietary intake #Thrombocytopenia Secondary to chemotherapy 8 days ago Platelet count of 43, down to 25 -Hold heparin -Continue to monitor daily a.m. labs for platelets #Mild hypoosmolar hypovolemic hyponatremia, asymptomatic Likely secondary to poor oral intake. Received 4 L IV normal saline bolus. -Daily a.m. labs for sodium level #Primary hypertension Currently blood pressure soft -Lisinopril 10 mg p.o. daily #Stage IV prostate cancer Patient is on chemotherapy, last administered 8 days before admission -Outpatient follow-up with oncologist -Consulted patient's oncologist, recommend against resuming any chemotherapy medications during hospital stay Diet: Regular, pur?ed DVT prophylaxis: SCDs CODE STATUS: Full code Lines: PIV Plan of care discussed with attending Dr. Dyer. Kelvin Mukherjee MD PGY?1
--- NOTE | 2024-06-15 12:22 | ESPR_ITS ---
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 He developed cellulitis over the left upper extremity and was admitted to the hospital the past week given antibiotics. Patient was found to be markedly leukopenic because of the chemotherapy for prostate cancer other problem consist of hypertension. Narrative: The wound was inspected today. Patient has less edema over the forearm. There is still some unhealthy tissues on the floor of the wound Exam Vital Signs Temp Pulse Resp BP Pulse Ox O2 Del Method O2 Flow Rate 97.2 F 85 16 118/66 99 Room Air 4 06/15/24 11:59 06/15/24 12:16 06/15/24 12:16 06/15/24 11:59 06/15/24 11:59 06/15/24 11:59 06/15/24 08:00 Assessment & Plan Assessment Additional comments: Impression: Healing wound dorsum of left hand Plan Plan: Will ask the wound care nurse to see if she could use chemical debridement like Santyl We will keep the left hand and forearm elevated on a pillow. Procedures Procedures Debridement of the left hand dorsal aspect full-thickness skin
[2024-06-15 14:26] LABS: Clostridium Difficile PCR Negative (Negative)
[2024-06-16] VITALS (9 sets, daily range): BP systolic 141–175; BP diastolic 71–84; PULSE 79–95; RESP 12–96; TEMP 36–36.4; O2SAT 95–99; BMI 29.2
--- NOTE | 2024-06-16 | XR_ITS ---
Examination: Ultrasound-guided needle placement right basilic vein. Dual-lumen central line placement (PICC line). Fluoroscopy AP chest, portable, single view Exam date and time:June 16, 2024 1504 hours INDICATIONS: Need for long-term intravenous antibiotic therapy A timeout was completed verifying correct patient, procedure, site, positioning Informed consent provided Technique: The patient's site was prepped and draped in sterile fashion. Maximum Sterile Barrier Technique used including cap, mask, sterile gown, sterile gloves, and sterile full body drape. If ultrasound technique used: sterile gel and sterile probe covers. Hand Hygiene performed using proper scrub, soap and water, or alcohol-based hand rub. Site right portable apparatus utilized to confirm patency of the right basilic vein Utilizing ultrasonographic guidance successful 21-gauge needle puncture into the right basilic vein Ultrasound images recorded and stored. 5 cc 1% lidocaine administered for local anesthetic. Successful micropuncture with a 21-gauge needle is performed. 0.18 wire guide is then introduced into the SVC under fluoroscopic guidance. Dual-lumen catheter dilator is then introduced, followed by the catheter in the SVC and proper position under fluoroscopic guidance. Successful aspiration of blood and flushing with heparinized saline is then performed in the 2 venous limbs. The catheter sutured in place. Findings: Under fluoroscopy, the tip of the catheter is in good position in the vena cava. Portable chest x-ray, post line placement is ordered. Estimated blood loss 3 cc The patient tolerated the procedure well and was in stable and satisfactory condition at completion of the procedure Impression: Successful ultrasound-guided needle placement right basilic vein Successful placement of dual lumen central line, percutaneous Fluoroscopy 0.5 minute radiation dose 3.04 milligray 1 spot fluoroscopic chest film. AP chest completion procedure demonstrates satisfactory position central line. May use central line.
[2024-06-16] MEDS: ceFAZolin/D5W 2 GM IV 2 GM/100 ML BAG IV (05:25)
[2024-06-16 06:23] LABS: Basophils % (Auto) 0 % (0-2.5); Eosinophils % (Auto) 0 % (0-10); Hematocrit 22.7 % (41.0-53.0); Hemoglobin 7.6 g/dL (13.5-16.0); Immature Granulocytes % (Auto) 1 % (0-0); Immature Granulocytes Auto 0.12 Thou/mm3 (0.00-0.00); Lymphocytes # (Auto) 2.8 Thou/mm3 (1.0-4.8); Lymphocytes % (Auto) 26 % (10-50); Mean Corpuscular HGB Conc 33.5 g/dl (31.0-37.0); Mean Corpuscular Hemoglobin 34.1 pg (25.0-35.0); Mean Corpuscular Volume 102 fL (80-100); Monocytes # (Auto) 0.7 Thou/mm3 (0.0-0.8); Monocytes % (Auto) 7 % (0-12); Neutrophils # (Auto) 6.9 Thou/mm3 (1.8-7.7); Neutrophils % (Auto) 66 % (37-80); Nucleated Red Blood Cell % 0 /100 WBC (0); Platelet Count 173 Thou/mm3 (140-440); RDW Standard Deviation 50.8 fL (35.1-43.9); Red Blood Count 2.23 Miln/mm3 (4.50-5.90); White Blood Count 10.5 Thou/mm3 (3.8-10.6)
[2024-06-16 07:09] LABS: Alanine Aminotransferase 8 U/L (10-49); Albumin, Serum 2.7 gm/dL (3.4-4.8); Albumin/Globulin Ratio 1.1 (1.2-2.2); Alkaline Phosphatase 58 U/L (46-116); Anion Gap 6 (7-16); Aspartate Amino Transferase 15 U/L (0-34); BUN/Creatinine Ratio 17 Ratio (12-20); Bilirubin,Total 0.2 mg/dL (0.3-1.2); Blood Urea Nitrogen 10 mg/dL (9-23); Calcium 7.7 mg/dL (8.3-10.6); Calcium (Corrected) 8.7 mg/dL (8.5-10.1); Carbon Dioxide 25.7 mMol/L (20.0-31.0); Chloride 110 mMol/L (98-107); Creatinine (Component) 0.6 mg/dL (0.6-1.3); Estimated Creatinine Clearance 112.6 mL/min (>60); Globulin 2.4 gm/dL (2.3-3.5); Glucose 95 mg/dL (74-106); Magnesium 1.5 mg/dL (1.6-2.6); Osmolality,Calculated 282 (275-295); Phosphorous 2.9 mg/dL (2.4-5.1); Potassium 3.4 mMol/L (3.4-5.1); Sodium 142 mMol/L (136-145); Total Protein 5.1 gm/dL (5.7-8.2); eGFR > 60 See Note
[2024-06-16] MEDS: NAPH,KPH MBDB 1 PACKET (1.5 GM) PO ×2 (08:54→20:16)
[2024-06-16] MEDS: MEGESTROL ACET SUSP 400 MG/10 ML UDC PO (08:55)
[2024-06-16] MEDS: TAMSULOSIN HCL 0.4 MG CAPSULE 0.8 MG PO (08:55)
[2024-06-16] MEDS: CALCIUM CARBONATE 600 MG TABLET PO (08:55)
[2024-06-16] MEDS: Lisinopril 2.5 MG TABLET 10 MG PO (08:55)
[2024-06-16] MEDS: Magnesium Sulfate 4 GM Ivpb 4 GM/50 ML BAG IV (09:06)
--- NOTE | 2024-06-16 11:48 | PC.CC ---
Addendum entered by Jasmin Whalen RN 06/16/24 15:03: Patient is booked with [facility] Addendum entered by Jasmin Whalen RN 06/16/24 14:50: Patient has been booked with [facility], pending accepting HH Addendum entered by Jasmin Whalen RN 06/16/24 14:39: Pt needs IV antibiotics, pt needs PICC line placed, referrals sent to all HH agencies and to [facility] Original Note: Pt entered into [facility], referrals to be sent no HH agency preference specified
[2024-06-16] MEDS: LOPERAMIDE 2 MG CAPSULE PO (11:49)
[2024-06-16] MEDS: cefTRIAXone/D5w 1gm IV premix 1 GM/50 ML BAG IV (11:53)
--- NOTE | 2024-06-16 12:09 | PC.SS ---
Addendum entered by Skye Singh 06/16/24 12:12: Daughter, Skye @ [phone]. cell# Original Note: Follow up note: SS spoke to physician team about d/c plans. Physician plans on placing i.v. line for i.v. antibiotics 14 day course at home. SS spoke to patient with language interpreter present. Patient is agreeable to d/c home with home health services. PCP: Dr. Bhakta. SS spoke to daughter, Skye Zamudio who works in laboratory analyst today. She is an RN and will assist her father in caring for this. Patient will d/c to daughter's address at: [address] [place] [address] Daughter will coordiate with Home health agency on preferred times due to her working. D/c within 1-2 days.
--- NOTE | 2024-06-16 14:16 | ESPR_ITS ---
<Statement entered by Sharon Taylor MD - 06/16/24 18:07> Patient seen and examined at bedside. No acute overnight events reported. Patient has been afebrile over the last few days. Will reach out to Dr. Howard regarding when to start patient's cancer medications. Patient will need to have a PICC line placed for another 6 days of IV antibiotics. Otherwise, patient's pain and swelling has significantly decreased in his left hand. Will have wound care follow, and assess and depending on recommendations can be discharged within 24 to 48 hours. Patient does complain of watery stools, however C. difficile was negative, and will give Imodium x 1 to help. Will change patient's antibiotic from cefazolin to IV ceftriaxone 1 g to address his E. coli bacteremia for total antibiotic course of 14 days, completing on 06/23/24. I discussed with and supervised the international marketing specialist physician who took care of this patient. I personally saw and examined the patient and discussed the assessment and plan with the entire medicine team, including my attending Dr. Valle, I agree with most of the assessment and plan as documented below Sharon Taylor M.D. PGY-2 Documentation for date of: 06/16/24 Subjective Subjective Interval history: No overnight events. Patient seen examined at bedside, resting comfortably. Patient endorses subjective improvement symptoms, decreased pain in left hand and arm. Will place PICC line for outpatient IV antibiotic treatment. Will call oncologist to discuss resuming chemotherapy. Exam Vital Signs Temp Pulse Resp BP Pulse Ox O2 Del Method O2 Flow Rate 97.0 F 89 19 163/84 H 97 Room Air 0 06/16/24 12:00 06/16/24 12:00 06/16/24 12:06/16/24 12:06/16/24 12:06/16/24 12:06/16/24 12:00 Narrative Exam PE: Gen: Well-developed and well-nourished. Calm. HEENT: NCAT, PERRLA, EOMI, MMM, anicteric conjunctivae. CVS: normal S1 and S2. RRR. No M/R/G. Resp: CTA B/L. No rhonchi, rales, crackles or wheezing. Abd: soft, non-tender, non-distended. BS+ in all 4 quadrants. MSK: Good ROM in BUE & BLE. Diffuse bruises, various stages of healing. Left hand edematous, tender, erythematous, with post op bandage, improved. Erythema spread on the dorsal forearm, improved. Left hand sensation and pulse intact. Neuro: CN II-XII grossly intact. Strength 5/5 in BUE & BLE. Alert and oriented x3. Psych: appropriate mood and affect. Objective Labs 06/16/24 05:52 06/16/24 05:52 Labs: Laboratory Results - last 24 hr 06/15/24 06/16/24 05:36 05:52 WBC 10.5 RBC 2.23 L Hgb 7.6 L Hct 22.7 L MCV 102 H MCH 34.1 MCHC 33.5 RDW Std Deviation 50.8 H Plt Count 173 Neut % (Auto) 66 Lymph % (Auto) 26 Warren % (Auto) 7 Eos % (Auto) 0 Baso % (Auto) 0 Neut # (Auto) 6.9 Lymph # (Auto) 2.8 Warren # (Auto) 0.7 Eos # (Auto) 0.0 Baso # (Auto) 0.0 Immature Gran # (Auto) 0.12 H Absolute Nucleated RBC 0.00 Immature Gran % 1 H Nucleated RBC % 0 Sodium 142 Potassium 3.4 Chloride 110 H Carbon Dioxide 25.7 Anion Gap 6 L BUN 10 Creatinine 0.6 Estim Creat Clear Calc 112.6 eGFR > 60 BUN/Creatinine Ratio 17 Glucose 95 Calculated Osmolality 282 Calcium 7.7 L Corrected Calcium 8.7 Phosphorus 2.9 Magnesium 1.5 L Total Bilirubin 0.2 L AST 15 ALT 8 L Alkaline Phosphatase 58 Total Protein 5.1 L Albumin 2.7 L Globulin 2.4 Albumin/Globulin Ratio 1.1 L Stl C. diff Tox B Gene Negative Quality Measures Quality Measures VTE prophylaxis Advance care planning discussed with:: patient Assessment & Plan Assessment Current Active Medications: Generic Name Dose Route Start Last Admin Trade Name Freq PRN Reason Stop Dose Admin Acetaminophen 650 mg 06/07/24 00:31 06/15/24 03:42 Acetaminophen 325 Mg Tablet PO 07/07/24 00:30 650 mg Q6H PRN Administration PAIN SCALE 1-3 (mild Acetaminophen 650 mg 06/08/24 11:06 Acetaminophen 325 Mg Tablet PO 07/07/24 00:30 Q6H PRN Fever >100.4 Calcium Carbonate 600 mg 06/07/24 00:30 06/16/24 08:55 Calcium Carbonate 600 Mg Tablet PO 07/07/24 00:29 600 mg QDAY JORDYN Administration Ceftriaxone Sodium/Dextrose 1 gm in 50 mls @ 100 mls/hr 06/16/24 10:45 06/16/24 11:53 Rocephin/D5w 1gm Iv Premix IV 06/23/24 10:44 100 mls/hr QDAY JORDYN Administration Lisinopril 10 mg 06/11/24 09:00 06/16/24 08:55 Lisinopril 2.5 Mg Tablet PO 07/11/24 08:59 10 mg DAILY JORDYN Administration Megestrol Acetate 400 mg 06/10/24 09:00 06/16/24 08:55 Megestrol Acet Susp 400 Mg/10 Ml Udc PO 07/10/24 08:59 400 mg DAILY JORDYN Administration Potassium Phos/Sodium Phos 1 packet 06/10/24 21:00 06/16/24 08:54 Naph,[facility] Mbdb 1 Packet (1.5 Gm) PO 07/10/24 20:59 1 packet BID JORDYN Administration Psyllium Hydrophilic Mucilloid 1 pkt 06/15/24 03:38 Psyllium 1 Pkt Packet PO 07/15/24 03:37 TID PRN DIARRHEA Protocol Tamsulosin HCl 0.8 mg 06/10/24 09:00 06/16/24 08:55 Tamsulosin Hcl 0.4 Mg Capsule PO 07/10/24 08:59 0.8 mg DAILY JORDYN Administration Zinc Acetate/Diphenhydramine 0 gm 06/13/24 11:49 Diphenhydramine/Zn Acet 2% Cr 30 Gm Tube TOP 07/13/24 11:48 Q4HR PRN Rash or itchiness Plan 78-year-old male with significant past medical history of hypertension, stage IV prostate cancer, currently on chemotherapy with last chemotherapy 8 days ago was brought in by family for fever, redness to the left hand and generalized body weakness. The patient was admitted to telemetry unit for further management of neutropenic fever. #Left hand s/p debridement on 06/14/23 #Neutropenic fever, resolved #Sepsis (resolved) 2/2 #GNR bacteremia Secondary to chemotherapy that was done 8 days ago for stage IV prostate cancer. Meet SIRS criteria 2/4 with pulse rate 124 and white count 0.5 with left hand cellulitis, and hematopoietic failure were with neutropenia. Pro-Lito 18.24. Received 4 L of IV NS bolus. Received IV vancomycin and Zosyn in the ED. Switched Zosyn to cefepime and Flagyl. Blood cultures 2/[address] head showed soft tissue swelling with air densities, ulnar styloid tip fracture. Swelling of left hand progressively worse, newly noted black discoloration around puncture wound. Patient reexamined, left hand swelling and discoloration stable compared to yesterday. MRI showed significant soft tissue swelling without abscess or osteomyelitis. Transfer nurse consulted with hand surgeon specialist who recommended continued treatment with general surgery and IV antibiotics at [facility]. Urine culture negative. Blood cultures grew pansensitive E. coli. Patient received Neupogen 480 mg subcu x 2 days. ANC significantly improved to 3.7. Based on significant improvement, orthopedics does not recommend pursuing transfer further at this time. Orthopedics to reevaluate for potential debridement, will follow-up. Patient does not show any symptomatic worsening, swelling and discoloration of hand is stable, however erythema is spreading up arm past the elbow. Potential polymicrobial infection. Left hand worsening, with increased pain, and sloughing of skin and purulence. Repeat x-rays ordered. Patient received surgical debridement with significant improvement. Antibiotics narrowed to Ancef, patient continues to show clinical improvement. -stop Vancomycin pharmacy dosing (06/06-06/14) -stop Cefepime 2 g IV every 8 hours (06/07-06/14) -stop Flagyl 500 mg IV every 8 hours (06/07-06/14) -Ancef 2g q8h (06/14-06/16) -Rocephin 1 g IV daily (until 06/23/2024) -Tylenol 650 Mg every 6 hourly as needed for fever, along with cooling measures -Orthopedics consulted for left hand, recommendations appreciated -Topical Benadryl for left arm itchiness -Pending PICC line placement #Hypocalcemia #Hypomagnesemia #Hypokalemia Patient has had significant electrolyte abnormalities refractory to treatment throughout course of stay. Likely multifactorial, due to poor absorption secondary to chemotherapy, high cell turnover due to Neupogen, refeeding syndrome. Patient is required IV magnesium, IV and p.o. potassium multiple times, remains low. Patient has improved stability in electrolyte levels. -Started on calcium carbonate 600 Mg daily -Monitor daily a.m. labs, replete as necessary -Encouraged dietary intake #Thrombocytopenia Secondary to chemotherapy 8 days ago Platelet count of 43, down to 25 -Hold heparin -Continue to monitor daily a.m. labs for platelets #Mild hypoosmolar hypovolemic hyponatremia, asymptomatic Likely secondary to poor oral intake. Received 4 L IV normal saline bolus. -Daily a.m. labs for sodium level #Primary hypertension Currently blood pressure soft -Lisinopril 10 mg p.o. daily #Stage IV prostate cancer Patient is on chemotherapy, last administered 8 days before admission -Outpatient follow-up with oncologist -Consulted patient's oncologist, recommend against resuming any chemotherapy medications during hospital stay Diet: Regular, pur?ed DVT prophylaxis: SCDs CODE STATUS: Full code Lines: PIV Plan of care discussed with senior resident Dr. Taylor PGY?[address] Valle. Kelvin Mukherjee MD PGY?1 Attending Provider Attestation/Addendum I have discussed and was present for the essential components of the history, physical examination, diagnosis, and treatment plan with the resident. I agree with the patient's care as documented by the resident and amended herein by me. Quentin Valle DO. Although this document has been carefully reviewed, there may still be some phonetic and other typographical errors. These errors are purely grammatical due to imperfections in the software program and should not be construed in any way to compromise the substance of the patient's medical care during this visit.
[2024-06-16] MEDS: LIDOCAINE INJ PF 1% 30 ML VIAL EPID (15:48)
[2024-06-16] MEDS: HEPARIN SOD LOCK SYR 100 UNIT/ML 500 UNIT STFIELD (15:48)
--- NOTE | 2024-06-16 16:16 | PC.NURSE ---
time out and consent done with team report given to Mari RN, RN aware of blood pressures and location of PICC line insertion May use PICC line order was put in per Alex Cole See [facility] for medications given no complications during procedure, Patient stable, i will wheel patient up myself
[2024-06-17] VITALS (7 sets, daily range): BP systolic 127–162; BP diastolic 70–92; PULSE 85–103; RESP 13–96; TEMP 36.1–36.5; O2SAT 96–98; BMI 28.3
[2024-06-17] MEDS: ACETAMINOPHEN 325 MG TABLET 650 MG PO ×2 (02:28→13:23)
[2024-06-17 06:21] LABS: Basophils % (Auto) 0 % (0-2.5); Eosinophils % (Auto) 0 % (0-10); Immature Granulocytes % (Auto) 1 % (0-0); Immature Granulocytes Auto 0.08 Thou/mm3 (0.00-0.00); Lymphocytes # (Auto) 2.3 Thou/mm3 (1.0-4.8); Lymphocytes % (Auto) 26 % (10-50); Mean Corpuscular HGB Conc 33.9 g/dl (31.0-37.0); Mean Corpuscular Hemoglobin 34.5 pg (25.0-35.0); Mean Corpuscular Volume 102 fL (80-100); Monocytes # (Auto) 0.7 Thou/mm3 (0.0-0.8); Monocytes % (Auto) 7 % (0-12); Neutrophils # (Auto) 5.7 Thou/mm3 (1.8-7.7); Neutrophils % (Auto) 66 % (37-80); Nucleated Red Blood Cell % 0 /100 WBC (0); Platelet Count 247 Thou/mm3 (140-440); RDW Standard Deviation 51.1 fL (35.1-43.9); Red Blood Count 2.26 Miln/mm3 (4.50-5.90); White Blood Count 8.7 Thou/mm3 (3.8-10.6)
[2024-06-17 06:33] LABS: Hemoglobin 7.8 g/dL (13.5-16.0)
[2024-06-17 06:46] LABS: Alanine Aminotransferase < 7 U/L (10-49); Albumin, Serum 2.9 gm/dL (3.4-4.8); Albumin/Globulin Ratio 1.2 (1.2-2.2); Alkaline Phosphatase 60 U/L (46-116); Anion Gap 6 (7-16); Aspartate Amino Transferase 15 U/L (0-34); BUN/Creatinine Ratio 17 Ratio (12-20); Bilirubin,Total 0.3 mg/dL (0.3-1.2); Blood Urea Nitrogen 10 mg/dL (9-23); Calcium (Corrected) 8.9 mg/dL (8.5-10.1); Carbon Dioxide 26.3 mMol/L (20.0-31.0); Chloride 110 mMol/L (98-107); Creatinine (Component) 0.6 mg/dL (0.6-1.3); Globulin 2.4 gm/dL (2.3-3.5); Glucose 99 mg/dL (74-106); Magnesium 1.9 mg/dL (1.6-2.6); Osmolality,Calculated 282 (275-295); Phosphorous 3.6 mg/dL (2.4-5.1); Potassium 3.7 mMol/L (3.4-5.1); Sodium 142 mMol/L (136-145); Total Protein 5.3 gm/dL (5.7-8.2); eGFR > 60 See Note
[2024-06-17] MEDS: cefTRIAXone/D5w 1gm IV premix 1 GM/50 ML BAG IV (08:20)
[2024-06-17] MEDS: Lisinopril 2.5 MG TABLET 10 MG PO (08:20)
[2024-06-17] MEDS: CALCIUM CARBONATE 600 MG TABLET PO (08:20)
[2024-06-17] MEDS: NAPH,KPH MBDB 1 PACKET (1.5 GM) PO (08:20)
[2024-06-17] MEDS: MEGESTROL ACET SUSP 400 MG/10 ML UDC PO (08:20)
[2024-06-17] MEDS: TAMSULOSIN HCL 0.4 MG CAPSULE 0.8 MG PO (08:20)
--- NOTE | 2024-06-17 12:16 | PC.SS ---
Update: Plan is to d/c patient home today with home health.
--- NOTE | 2024-06-17 12:26 | PC.SS ---
Ortho recommendations are pending. Plan is for the patient to d/c home today.
--- NOTE | 2024-06-17 13:09 | ESDS_ITS ---
Planned Discharge Date 06/17/24 DS: Providers Provider Date of admission: 06/07/24 00:31 Primary care physician: Yuniel Bhakta MD Admitting Provider: Augustus Mays MD Attending Provider on Admission: uTtu Valle DO Consults: 06/07/24 12:17 Consult to Orthopedic Urgent Comment: Consulting Provider: Sreedhar Aragon 06/07/24 14:14 Referral - Ed Special Education Teacher Stat Service Needed for Transfer: Orthopedics Addl Comments:: Cellulitis of left hand, rapidly progressive, with CT findings concerning for gas gangrene. Requires urgent transfer to facility with hand photogrammetric compilation specialist for intervention, preservation of left hand function. 06/08/24 02:07 Referral Infection Control Routine Comment: Reason for Infection Control Referral: Multiple ABX (>2) Patient In Isolation 06/08/24 19:21 Referral Wound Care Routine Comment: Instructions: new admit with prostate cancer and low wbc, with puncture wound to hand, debrided in er 06/09/24 12:41 Referral Nutritional Services Routine Comment: Left hand wound 06/10/24 10:52 Referral Speech Therapy Routine Comment: 06/10/24 12:45 Referral - AIRCRAFT NAVIGATOR Manager Industrial Routine Comment: swallow eva [place] 06/16/24 10:24 Consult to General Surgery Routine Comment: Consulting Provider: Kelin Burleson 06/16/24 15:43 Referral OP Wound Healing Dept Routine Comment: Left hand trauma s/p I&D Attending Provider on DC: Tutu Valle DO Discharging Provider: Kelvin Mukherjee MD DS: Diagnosis Problem List Completed Was Problem List Reviewed/Reconciled?: Yes Hospital Course Hospital Course Hospital course: 78-year-old male with significant past medical history of hypertension, stage IV prostate cancer, currently on chemotherapy with last chemotherapy 8 days prior to admission was brought in by family for fever, redness to the left hand and generalized body weakness, admitted for cellulitis and neutropenic fever. Patient received Neupogen with significant increase in leukocyte count, was initially treated with aggressive IV antibiotics for cellulitis. Patient initially showed worsening cellulitis, surgical consult performed debridement, after which patient began showing improvement. Antibiotics narrowed, patient stable for discharge with PICC line for IV antibiotics for full course of treatment. Patient medically stable and cleared for discharge. The patient is stable, ambulatory, afebrile and tolerating Per oral medications at the time of discharge. The patient understood and agreed to the treatment plan. Follow up with Primary care physician with labs within 3-5 days of discharge. If symptoms persist or worsen, return to the Emergency Department. Discharge plan: You are being discharged the following medications: - IV ceftriaxone 1g qday, through 06/23/24, PICC line/iv access to removed after last dose. Please continue taking all other medications as previously prescribed. Please follow-up with your PCP within 1-2 weeks. Please follow-up with your oncologist in 1 week to resume chemotherapy. Return to the ED if you develop new or worsening symptoms. Please follow wound care instructions as below: 1) Follow up at [facility] for left hand wound, [address] [place] [address]. Call [phone] for appointment. 2) Shower than change dressing to Left hand. -Wash hands with soap and water and remove old dressing - Cleanse site with wound cleanser spray and pat dry with gauze. -Wash hands again -Apply thin layer of therahoney gel to wound bed and cover with foam dressing. -Change once a day and as needed for falling off or soiling. If active bleeding occurs, apply tight dressing and return to MD or ER. ? Notify primary doctor or return to Emergency Room if any of the following: ? Fever above 100.6? F. ? Increased pain ? Increase swelling ? Red streaks around your wound ? Drainage becomes foul smelling or changes color ? The wound is larger or deeper ? The wound looks dried out or dark ? Bleeding that does not stop with holding pressure Diagnoses: #Left hand s/p debridement on 06/14/23 #Neutropenic fever, resolved #Sepsis (resolved) 2/2 #GNR bacteremia #Hypocalcemia #Hypomagnesemia #Hypokalemia #Thrombocytopenia #Mild hypoosmolar hypovolemic hyponatremia, asymptomatic #Primary hypertension #Stage IV prostate cancer Plan of care discussed with senior resident Dr. Vega PGY?[address] Valle. Kelvin Mukherjee MD PGY?1 Senior resident attestation: Patient evaluated and examined at the bedside, plan of care discussed with rest of the team including my attending physician, except as noted. Silvia PGY2 Status at Discharge Overall status at discharge: patient is progressing back to baseline Time Spent with Patient Time attestation: Total time spent providing and/or coordinating discharge services: 30 min Time spent: Greater than 30 minutes Home Health Home Health Referral Orders: 06/16/24 14:09 Home Health Referral Routine Reason For Exam: debility Home-Bound The patient must either because of illness or injury, need the aid of supportive devices such as crutches, canes, wheelchairs, and walkers; the use of special transportation; or the assistance of another person in order to leave their place of residence; OR have a condition such that leaving his or her home is medically contraindicated. In addition, the patient also meets the following criteria: patient is normally unable to leave the home and leaving home requires considerable taxing effort. Addendum to Home Health Certification Practitioner's Certification: I certify that the patient has been under my care in the hospital and the care of attending physician (see below). We had a [id number] encounter on (see date below). My clinical findings indicate that the patient is home bound per the above criteria and the Home Health Services noted in these orders are medically necessary. The primary reason for the [id number] encounter is related to the fact that the patient requires home health services. Date Certifying [id number] Physician Encounter: 06/07/24 Physician's Name who will Assume Oversight for Services: Yuniel Bhakta (PCP) Physician's Phone No.who will Assume Oversight for Service: TILE POWER SHEAR OPERATOR - Community Resources: No PT to Evaluate: No PT to evaluate and provide a treatmnet plan to increase patient's mobility and strength. Wound Care: Yes Home Health RN - Wound Care Order: Dressing changes for L arm IV Therapy: Yes IV Medication: ceftriaxone IV Dose: 1gm IV Frequency: daily IV Stop Date: 06/23/24 Discontinue PICC Line Once Treatment Complete: Yes RN Safety Evaluation: Yes RN to evaluate and create a plan of care that will produce positive outcomes. Palliative Treatment: No Palliative treatment and evaluate the need for hospice. Home Health Aide - Personal Care: No Home Health Aide to assist with any ADL's. Exam Vital Signs Temp Pulse Resp BP Pulse Ox O2 Del Method O2 Flow Rate 97.2 F 102 H 16 162/92 H 97 Room Air 2 06/17/24 08:00 06/17/24 12:00 06/17/24 12:00 06/17/24 08:20 06/17/24 08:00 06/17/24 08:00 06/17/24 12:00 Narrative Exam PE: Gen: Well-developed and well-nourished. Calm. HEENT: NCAT, PERRLA, EOMI, MMM, anicteric conjunctivae. CVS: normal S1 and S2. RRR. No M/R/G. Resp: CTA B/L. No rhonchi, rales, crackles or wheezing. Abd: soft, non-tender, non-distended. BS+ in all 4 quadrants. MSK: Good ROM in BUE & BLE. Diffuse bruises, various stages of healing. Left hand edematous, tender, erythematous, with post op bandage, improved. Forearm erythema significantly improved. Left hand sensation and pulse intact. Neuro: CN II-XII grossly intact. Strength 5/5 in BUE & BLE. Alert and oriented x3. Psych: appropriate mood and affect. Discharge Plan Plan Patient Disposition: Home w/HOME HEALTH Patient condition on transfer: Stable Care Plan Goals: You are being discharged the following medications: - IV ceftriaxone 1g qday, through 06/23/24, PICC line/iv access to removed after last dose. Please continue taking all other medications as previously prescribed. Please follow-up with your PCP within 1-2 weeks. Please follow-up with your oncologist in 1 week to resume chemotherapy. Return to the ED if you develop new or worsening symptoms. Please follow wound care instructions as below: 1) Follow up at [facility] for left hand wound, [address] [place] [address]. Call [phone] for appointment. 2) Shower than change dressing to Left hand. -Wash hands with soap and water and remove old dressing - Cleanse site with wound cleanser spray and pat dry with gauze. -Wash hands again -Apply thin layer of therahoney gel to wound bed and cover with foam dressing. -Change once a day and as needed for falling off or soiling. If active bleeding occurs, apply tight dressing and return to MD or ER. ? Notify primary doctor or return to Emergency Room if any of the following: ? Fever above 100.6? F. ? Increased pain ? Increase swelling ? Red streaks around your wound ? Drainage becomes foul smelling or changes color ? The wound is larger or deeper ? The wound looks dried out or dark ? Bleeding that does not stop with holding pressure Prescriptions/Referrals Prescriptions/Med Rec: New ceftriaxone 1 gram recon soln 1 g IV QDAY Qty: 7 0RF Rx Instructions: IV ceftriaxone 1g qday, through 06/23/24, PICC line/iv access to removed after last dose. Continued prednisone 5 mg tablet 5 mg PO BID Patient Comments: TAKE 1 TABLET BY MOUTH TWICE DAILY lisinopril 5 mg tablet 5 mg PO DAILY Patient Comments: TAKE 1 TABLET BY MOUTH ONCE DAILY ergocalciferol (vitamin D2) 1,250 mcg (50,000 unit) capsule 1,250 mcg PO .weeklly megestrol 400 mg/10 mL (40 mg/mL) suspension 400 mg PO DAILY Patient Comments: TAKE 10 ML BY MOUTH ONCE DAILY abiraterone 500 mg tablet 1,000 mg PO DAILY Patient Comments: TAKE 2 TABLETS BY MOUTH ONCE DAILY tamsulosin 0.4 mg capsule 0.8 mg PO DAILY acetaminophen [Tylenol 8 Hour] 650 mg tablet extended release 650 mg PO Q8H PRN (Reason: fever or pain) Qty: 30 0RF ibuprofen 600 mg tablet 600 mg PO Q8H PRN (Reason: fever or pain) Qty: 30 0RF Referrals: Yony (PCP)Yuniel MD [Primary Care Provider] - Patient/Caregiver Discharge Instructions Discharge Activity: resume usual activities Other Discharge Activity Instructions:: - IV ceftriaxone 1g qday, through 06/23/24, PICC line/iv access to removed after last dose. Education Materials: Neutropenia, Nutrition for Wound Healing, Discharge Instructions for Cellulitis, Wound Care Dc, Preventing Surgical Site Infections Print Language: Swedish Stand Alone Forms: [employer] Award Info., Patient Portal Info Letter Discharge Order Discharge Orders: Discharge (Routine); Ordered 06/17/24 Ordered By: Kelvin Mukherjee Quality Discharge Quality Measures VTE prophylaxis Attestestation MD Attestation I have discussed and was present for the essential components of the discharge history, physical examination, diagnosis, and discharge treatment plan with the resident. I agree with the patient's discharge care as documented by the resident and amended herein by me. Quentin Valle DO. The patient understood all discharge instructions, all questions were answered satisfactorily. The patient was instructed to return to the Emergency Department is symptoms worsened or persisted. Although this document has been carefully reviewed, there may still be some phonetic and other typographical errors. These errors are purely grammatical due to imperfections in the software program and should not be construed in any way to compromise the substance of the patient's medical care during this visit.
--- NOTE | 2024-06-17 16:41 | PC.CC ---
Called [facility], [facility] and [facility] confirmed medications was delivered yesterday.
--- NOTE | 2024-06-18 16:37 | PC.CM ---
DC orders and dc summary sent to [facility] and [facility]. Start of care date with [facility] was today. HH referral is complete.
== END 2024-06-17 15:20 | disposition home health service (06) | DRG 871 ==
LOC: SERX 23:20 → SERHOLD 06-07 00:59 → S2NX 06-08 00:16
PROVIDERS: Physician Assistant; Student in an Organized Health Care Education/Training Program; Surgery; Admitting Provider Internal Medicine; Emergency Provider Emergency Medicine; PCP Family Medicine; Visit Provider Student in an Organized Health Care Education/Training Program
PROC: 0HBGXZZ Excision of Left Hand Skin, External Approach (ICD-10-PCS; principal; 2024-06-13 12:00)
DX: A41.51 Sepsis due to Escherichia coli [E. coli] (principal); D61.810 Antineoplastic chemotherapy induced pancytopenia; E87.1 Hypo-osmolality and hyponatremia; L03.114 Cellulitis of left upper limb; C79.9 Secondary malignant neoplasm of unspecified site; E11.52 Type 2 diabetes mellitus with diabetic peripheral angiopathy with gangrene; I47.20 Ventricular tachycardia, unspecified; I10 Essential (primary) hypertension; E86.1 Hypovolemia; C61 Malignant neoplasm of prostate; D70.1 Agranulocytosis secondary to cancer chemotherapy; R50.81 Fever presenting with conditions classified elsewhere; E83.42 Hypomagnesemia; E83.39 Other disorders of phosphorus metabolism; R31.29 Other microscopic hematuria; R13.10 Dysphagia, unspecified; S61.432A Puncture wound without foreign body of left hand, initial encounter; E83.51 Hypocalcemia; E87.6 Hypokalemia; D69.59 Other secondary thrombocytopenia; T45.1X5A Adverse effect of antineoplastic and immunosuppressive drugs, initial encounter; Z79.899 Other long term (current) drug therapy
CPT/HCPCS: 36415; 71045; 73100; 73120; 73130; 73200; 73218; 73221; 80048; 80053; 80061; 80202; 81001; 82550; 83036; 83605; 83735; 83880; 84100; 84145; 84443; 84484; 84550; 85025; 85610; 85652; 85730; 86140; 87015; 87040; 87045; 87046; 87077; 87081; 87086; 87106; 87186; 87493; 87811; 87899; 90715; 92526; 92610; 93005; 93971; 96361; 96365; 96366; 96367; 96372; 96375; 99285; A4217; A4649; C1751; C1894; J0689; J0692; J0696; J1100; J1642; J1720; J2250; J2270; J2405; J2543; J2704; J3010; J3370; J3372; J3475; J3480; J3490; J7030; J7040; J7050; J7999; Q5101; A9270; J1836

== ENCOUNTER → 2024-06-25 | Outpatient (CLI) | payer MEDICARE, MEDICAID, SELFPAY ==
[2024-06-25 17:36] LABS: Basophils # (Auto) 0.1 Thou/mm3 (0.0-0.2); Basophils % (Auto) 1 % (0-2.5); Eosinophils % (Auto) 0 % (0-10); Hematocrit 28.2 % (41.0-53.0); Hemoglobin 9.2 g/dL (13.5-16.0); Immature Granulocytes % (Auto) 0 % (0-0); Immature Granulocytes Auto 0.02 Thou/mm3 (0.00-0.00); Lymphocytes # (Auto) 2.3 Thou/mm3 (1.0-4.8); Lymphocytes % (Auto) 32 % (10-50); Mean Corpuscular HGB Conc 32.6 g/dl (31.0-37.0); Mean Corpuscular Hemoglobin 34.2 pg (25.0-35.0); Mean Corpuscular Volume 105 fL (80-100); Monocytes # (Auto) 0.6 Thou/mm3 (0.0-0.8); Monocytes % (Auto) 9 % (0-12); Neutrophils # (Auto) 4.1 Thou/mm3 (1.8-7.7); Neutrophils % (Auto) 58 % (37-80); Nucleated Red Blood Cell % 0 /100 WBC (0); Platelet Count 396 Thou/mm3 (140-440); RDW Standard Deviation 54.8 fL (35.1-43.9); Red Blood Count 2.69 Miln/mm3 (4.50-5.90); White Blood Count 7.1 Thou/mm3 (3.8-10.6)
== END | disposition home or self-care (01) ==
LOC: COPL 16:48
PROVIDERS: PCP Family Medicine; Referring Provider Family Medicine; Visit Provider Family Medicine
DX: D64.9 Anemia, unspecified (principal)
CPT/HCPCS: 36415; 85025

== ENCOUNTER → 2024-06-26 | Outpatient (CLI) | payer MEDICARE, MEDICAID, SELFPAY | END | disposition home or self-care (01) | LOC: SWHD 12:52 | PROVIDERS: Visit Provider Student in an Organized Health Care Education/Training Program | DX: S61.402A Unspecified open wound of left hand, initial encounter (principal); X58.XXXA Exposure to other specified factors, initial encounter; C61 Malignant neoplasm of prostate; I10 Essential (primary) hypertension; D64.9 Anemia, unspecified | CPT/HCPCS: 11042; 99212; A9270; G0463 ==

== ENCOUNTER → 2024-07-03 | Outpatient (CLI) | payer MEDICARE, MEDICAID, SELFPAY | END | disposition home or self-care (01) | LOC: SWHD 13:55 | PROVIDERS: PCP Family Medicine; Referring Provider Family Medicine; Visit Provider Student in an Organized Health Care Education/Training Program | DX: S61.402A Unspecified open wound of left hand, initial encounter (principal); X58.XXXA Exposure to other specified factors, initial encounter; C61 Malignant neoplasm of prostate; I10 Essential (primary) hypertension; D64.9 Anemia, unspecified | CPT/HCPCS: 97597; A9270 ==

== ENCOUNTER → 2024-07-10 | Outpatient (CLI) | payer MEDICARE, MEDICAID, SELFPAY | END | disposition home or self-care (01) | LOC: SWHD 09:08 | PROVIDERS: PCP Family Medicine; Referring Provider Family Medicine; Visit Provider Surgery | DX: S61.402A Unspecified open wound of left hand, initial encounter (principal); X58.XXXA Exposure to other specified factors, initial encounter; C61 Malignant neoplasm of prostate; I10 Essential (primary) hypertension; D64.9 Anemia, unspecified | CPT/HCPCS: 17250; A9270 ==

== ENCOUNTER → 2024-07-18 | Outpatient (CLI) | payer MEDICARE, MEDICAID, SELFPAY ==
--- NOTE | 2024-07-18 | XR_ITS ---
Examination: Hand, left 3 views Technique: Hand AP, oblique, lateral 3 views Date and time of exam: July 18, 2024 1208 hours Comparison June 12, 2024 INDICATIONS: Left hand pain months. 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
--- NOTE | 2024-07-18 | XR_ITS ---
Examination: Wrist, left 3 views Technique: Wrist AP, oblique, lateral 3 views Date and time of exam: July 18, 2024 1208 hours Comparison June 12, 2024 INDICATIONS: Left wrist pain months. FINDINGS: Old healed fracture deformity distal radial metaphysis Moderate posttraumatic osteoarthritis radiocarpal joint Ununited ulnar styloid tip fracture No acute fracture Moderate narrowing navicular trapezium first carpometacarpal joints. No erosive arthritis IMPRESSION: Old healed fracture deformity distal radial metaphysis with moderate osteoarthritis radiocarpal joint Additional osteoarthritis as above
== END | disposition home or self-care (01) ==
LOC: CDIM 11:36
PROVIDERS: PCP Nurse Practitioner Gerontology; Referring Provider Nurse Practitioner Gerontology; Visit Provider Nurse Practitioner Gerontology
DX: M19.042 Primary osteoarthritis, left hand (principal); S60.552A Superficial foreign body of left hand, initial encounter; X58.XXXA Exposure to other specified factors, initial encounter
CPT/HCPCS: 73110; 73130

== ENCOUNTER → 2024-07-31 | Outpatient (CLI) | payer MEDICARE, MEDICAID, SELFPAY | END | disposition home or self-care (01) | PROVIDERS: PCP Family Medicine; Referring Provider Family Medicine; Visit Provider Student in an Organized Health Care Education/Training Program | DX: S61.402A Unspecified open wound of left hand, initial encounter (principal); X58.XXXA Exposure to other specified factors, initial encounter; C61 Malignant neoplasm of prostate; I10 Essential (primary) hypertension; D64.9 Anemia, unspecified; Z87.891 Personal history of nicotine dependence | CPT/HCPCS: 99212; G0463 ==